=== PATIENT | female | born 1990 ===

== ENCOUNTER 2020-02-15 13:06 | Emergency (ER) | payer OTHER, SELFPAY ==
[2020-02-15 13:38] VITALS: BP 105/60; PULSE 64; RESP 18; TEMP 38; O2SAT 100; BMI 33.5
--- NOTE | 2020-02-15 13:57 | ED_ITS ---
HPI - Medical Clearance General Chief complaint: Upper Respiratory Symptoms Stated complaint: covid testing Time Seen by Provider: 02/15/20 13:32 Source: patient Mode of arrival: ambulatory Limitations: no limitations History of Present Illness HPI Narrative: 21-year-old female is 41 weeks gestation is here for COVID test as her friend's mother whom she is staying with tested positive for COVID she denies any symptoms. No -related complaints. No symptoms. No GI symptoms. No cough, chest pain or shortness of breath MD complaint: medical clearance requested Treatments Prior to Arrival: none Related Information Previous Rx's Medication Instructions Recorded sumatriptan succinate 50 mg tablet 50 mg PO ONCE PRN 30 Days #10 tab 02/10/20 Allergies Allergy/AdvReac Type Severity Reaction Status Date / Time No Known Allergies Allergy Verified 02/10/20 14:24 [No Known Allergies*] control Allergy Unknown migraine Uncoded 11/11/19 00:00 Review of Systems Review of Systems: Constitutional: No Weight loss, No Fever, No Chills, No Night Sweats, No Fatigue, No Malaise ENT/Mouth: No Hearing loss, No Ear Pain, No Nasal Congestion, No Sinus Pain, No Hoarseness, No sore throat, No Rhinorrhea, No Swallowing Difficulty Eyes: No Eye Pain, No Swelling, No Redness, No Foreign Body, No Discharge, No Vision Changes Cardiovascular: No Chest Pain, No SOB, No Dyspnea on Exertion, No Orthopnea, No Edema, No Palpitations Respiratory: No Cough, No Sputum, No Wheezing, No Smoke Exposure, No Dyspnea Gastrointestinal: No Nausea, No Vomiting, No Diarrhea, No Constipation, No abdominal Pain, No Hematochezia, No Melena Genitourinary: no irregular bleeding, No Dysuria, No Urinary Frequency, No Hematuria, No Urinary Incontinence, No Urgency, No Flank Pain, No Urinary Flow Changes, No Hesitancy Musculoskeletal: No joint pain, No Myalgias, No Joint Swelling Skin: No Skin Lesions, No rash Neuro: No Weakness, No Numbness, No Paresthesias, No Loss of Consciousness, No Dizziness, No Headache Psych: No Anxiety/Panic, No Social Issues Heme/Lymph: No Bruising, No Bleeding,No Lymphadenopathy Endocrine: No Polyuria, No Polydipsia, No Temperature Intolerance Yes all other systems are reviewed and are negative PMFSH Past Medical History Medical History (Updated 02/15/20 @ 14:00 by Fredo Zepeda NP) Headache syndrome Social History Social History Alcohol intake: never Smoking Status: Never smoker Advance Directives: No Advance Directives Information Provided: No Physical Exam Vital Signs: Vital Signs: Last Vital Signs Temp 100.4 F 02/15/20 13:38 Pulse 64 02/15/20 13:38 Resp 18 02/15/20 13:38 BP 105/60 02/15/20 13:38 Pulse Ox 100 02/15/20 13:38 Body Mass Index 33.5 Const: General: cooperative and healthy appearing; No acute distress or intoxicated appearing Nutritional Appearance: average body habitus Orientation/consciousness: patient oriented x3 HENMT: Head: Yes normal to inspection Ears: hearing grossly normal bilaterally Eyes: General: appearance normal, both eyes and all related structures Visual Braden: normal visual braden by confrontation Neck: Neck: Yes normal visual inspection, No positive Brudzinski's sign, No positive Kernig's sign and No tender Thyroid: Thyroid normal Chest: Chest palpation & inspection: normal inspection of the chest Resp: Effort & Inspection: normal respiratory effort Auscultation: clear to auscultation bilaterally Cardio: Jugular venous distension: no JVD GI: Inspection: Yes normal to inspection Percussion: Yes normal to percussion Auscultation: normal bowel sounds : General: Yes no CVA tenderness Back/Spine/Pelvis: Back: no CVA tenderness Skin: General skin exam: no rashes or lesions noted Neuro: General: patient oriented x3 Extrem: General: Yes normal to inspection Course Course Course Narrative: Here seeking COVID test for medical clearance as she has 41 she weeks gestation. Being followed by [facility]. Offers no - related complaints. Positive regular movement. No abdominal cramping, GI symptoms. No chest pain or shortness of breath. Will go ahead and do rapid COVID test for medical clearance will discharge with clear precaution return follow-up instructions. Stable for discharge. Discharge Plan Discharge Clinical Impression: Encounter for medical screening examination Patient Disposition: Home, Self-Care Instructions: Normal Exam (ED) Additional Instructions: We have done a rapid COVID test this is pending I will call you with the results in the next 1 hour Return if any concerns or worsening symptoms Follow-up with OBGYN as planned Thank you Prescriptions: No Action sumatriptan succinate 50 mg tablet 50 mg PO ONCE PRN (Reason: migraine headache) 30 Days Qty: 10 RF: 0 Referrals: Oriana Pepper MD [Primary Care Provider] - 1 week
[2020-02-15 14:18] LABS: COVID-19 Test Negative (Negative)
== END 2020-02-15 14:45 | disposition home or self-care (01) ==
PROVIDERS: Nurse Practitioner Primary Care; Emergency Provider Emergency Medicine; PCP Internal Medicine
DX: O26.93 Pregnancy related conditions, unspecified, third trimester (principal); Z3A.41 41 weeks gestation of pregnancy; Z20.828 Contact with and (suspected) exposure to other viral communicable diseases
CPT/HCPCS: 87635; 99283

== ENCOUNTER 2021-05-07 15:53 | Inpatient (IN) | payer OTHER, SELFPAY ==
--- NOTE | ~2021-05-07 | FL_ITS ---
EXAMINATION: XR FL WITH IMAGES CLINICAL INFORMATION: Left kidney stone. COMPARISON: None TECHNIQUE: Fluoroscopy performed by Dr. Rylan Michael. Fluoroscopy Time: 35.47 seconds. DAP: 11.81 mGycm2. Images: 1. FINDINGS: Single image shows the upper portion of a presumed internally dwelling stent. FL/FL guidance in OR IMPRESSION: Fluoroscopy and a single spot film were provided during stent placement.
--- NOTE | ~2021-05-07 | CT_ITS ---
. EXAMINATION: CT ABDOMEN AND PELVIS WITHOUT CONTRAST CLINICAL INFORMATION: Right-sided flank pain COMPARISON: 11/22/2017 TECHNIQUE: Multidetector volumetric imaging was performed from the lung bases through the pubic symphysis. Sagittal and coronal reformatted images were obtained on the technologist workstation. This CT examination was performed using dose optimization techniques as appropriate, variously including the following: *Automated exposure control *Adjustment of mA and/or kV according to patient size (this includes techniques or standardized protocols for targeted exams where dose is matched to indication/reason for exam; i.e. extremities or head) *Use of iterative reconstruction technique FINDINGS: The lack of intravenous contrast limits evaluation of the solid visceral organs including the liver, spleen, pancreas, and kidneys. LUNG BASES: The visualized lung bases are unremarkable. LIVER, GALLBLADDER, AND BILIARY TREE: Liver is diffusely hypoattenuating consistent with diffuse hepatic steatosis. No suspicious or concerning focal liver lesion seen. Status post cholecystectomy. No biliary ductal dilatation. PANCREAS: Limited non-contrast evaluation is normal. No casie-pancreatic fluid. SPLEEN: Limited non-contrast evaluation is normal. ADRENAL GLANDS: Normal; no adrenal mass. KIDNEYS AND URETERS: Several right-sided renal calculi are present up to 4 mm in the upper pole with several adjacent 2-3 mm calculi in the right mid-lower kidney. There is asymmetric left perinephric swelling and perinephric fluid with new left hydroureteronephrosis followed to a 4 mm left ureteral calculus. GASTROINTESTINAL TRACT: Small bowel and colon are non-dilated. No bowel wall thickening. No pericolonic inflammatory changes to suggest colitis or diverticulitis. ABDOMINAL WALL: No hernia seen. LYMPH NODES: No pathologically enlarged lymph nodes in the abdomen or pelvis. VASCULAR: Normal caliber abdominal aorta. BLADDER: Unremarkable. PELVIC VISCERA: Small volume of pelvic free fluid is present. OSSEOUS STRUCTURES: No acute or suspicious osseous abnormalities. CT/CT abdomen pelvis wo con IMPRESSION: No etiology for right flank pain identified. There is an obstructing 4 mm left distal ureteral calculus which could explain left-sided flank pain. This results in left hydroureteronephrosis and asymmetric left renal swelling and perinephric stranding. Severe hepatic steatosis.
[2021-05-07 16:03] VITALS: BP 125/84; PULSE 62; RESP 16; TEMP 36.1; O2SAT 100; BMI 30.8
--- NOTE | 2021-05-07 17:09 | ED.ABDPAIN ---
HPI - Abdominal Pain General Chief Complaint: Back Pain/Injury Stated Complaint: kidney stones Source: patient Mode of arrival: ambulatory Limitations: no limitations History of Present Illness HPI narrative: 30-year-old female with past medical history of kidney stones presents with left-sided flank pain, dysuria, nausea and vomiting. Pain started this morning has progressively worsened. MD elicited complaint: flank pain Pertinent past history: kidney stones Onset (ago): day(s) (1) Pain Consistency: constant and colicky Location: L flank Severity: severe Pain scale (0-10): 10 Quality: stabbing and sharp Migration to: L flank Exacerbating factors: vomiting and movement Relieving factors: nothing Context: history of similar episodes Associated symptoms: nausea, vomiting and chills Treatments prior to arrival: NSAIDs Related Data Date of Last Menstrual Period: 04/27/21 Patient : No Previous Rx's Medication Instructions Recorded sumatriptan succinate 50 mg tablet 50 mg PO DAILY PRN #10 tab 04/28/20 Allergies Allergy/AdvReac Type Severity Reaction Status Date / Time No Known Allergies Allergy Verified 02/10/20 14:24 [No Known Allergies*] control Allergy Unknown migraine Uncoded 11/11/19 00:00 Review of Systems Review of Systems Constitutional: No Fever, No Chills ENT/Mouth: No sore throat Eyes: No Eye Pain, No Swelling, No Redness Cardiovascular: No Chest Pain, No SOB Respiratory: No Cough, No Sputum, No Wheezing Gastrointestinal: positive Nausea, positive Vomiting, No Diarrhea, positive abdominal pain Genitourinary: positive Dysuria, positive urinary frequency, no Hematuria, positive Flank Pain, positive hesitancy Musculoskeletal: No joint pain, No Myalgias Skin: No Skin Lesions, No rash Neuro: No Weakness, No Numbness, No Headache Psych: No Anxiety/Panic, No Depression Heme/Lymph: No Bruising, No Lymphadenopathy Endocrine: No Polyuria, No Polydipsia Yes all other systems are reviewed and are negative Physical Exam Vital Signs: Vital Signs: Last Vital Signs Temp 97.9 F 05/07/21 19:24 Pulse 58 05/07/21 19:24 Resp 16 05/07/21 19:24 BP 115/73 05/07/21 19:24 Pulse Ox 100 05/07/21 19:24 BMI result Body Mass Index 30.8 Appearance: Alert. Oriented X3. Moderate distress. Eyes: Pupils equal, round and reactive to light. Sclera nonicteric. EOMI. ENT: Pharynx normal. Moist mucous membranes. Neck: Normal inspection. Neck supple. CVS: Normal heart rate and rhythm. Pulses normal. Respiratory: No respiratory distress. Breath sounds normal. Abdomen: Soft and left CVA tenderness noted. Skin: Skin warm and dry. Normal skin color. Normal skin turgor. Extremities: No lower extremity edema. Moves all extremities against resistance. Gait well-balanced well coordinated. Neuro: No motor deficit. No sensory deficit. Cranial nerves 2-12 intact. Course Course Course Narrative: 30-year-old female presents with past medical history of kidney stones, presents with 1 day of sharp left-sided flank pain radiating down into the left groin. States that she has had similar pain in the past prior kidney stones. She does describe urinary hesitancy, does not believe to be last menstrual cycle was April 27 with no complications. Will order labs, CT scan of abdomen and pelvis. Will treat with fluids, pain management and antiemetics. 19:02 urinalysis is still pending. Patient is complaining of returning pain at 10/10, 2nd order for morphine 4 mg IV push. Patient has even unlabored respirations, alert oriented x4. 20:37 patient continues with pain. Order for more morphine, fluids, and discussion with patient regarding plan of care to admit for suspected pyelonephritis with nonobstructing kidney stone. 21:00 discussion with hospitalist regarding plan of care, plan is to admit for pyelonephritis and obstructing renal stone. Discussion with Urology regarding obstructing stone. Urology suggested NPO and will round on the patient in the morning. Consultations Consultation #1: Yaima Time: 21:00 Consultation #2: Coy Time: 21:42 MDM - Abdominal Pain Differential Diagnosis Differential diagnosis: Likely abdominal pain, calculus of kidney, constipation, diverticulitis, ovarian cyst, pancreatitis and renal colic Medical Records Attestation: I reviewed the patient's medical records. Lab Data Attestation: I reviewed the patient's lab results. Result diagrams: 05/07/21 17:41 05/07/21 17:55 Labs: Lab Results 05/07/21 05/07/21 05/07/21 Range/Units 17:41 17:55 18:59 WBC 9.8 (4.8-10.8) X10*3/uL RBC 4.61 (4.20-5.50) X10*6/uL Hgb 13.6 (12.0-16.0) g/dl Hct 40.5 (37.0-47.0) % MCV 87.9 (80.0-98.0) fL MCH 29.5 (27.0-33.0) pg MCHC 33.6 (31.0-35.0) g/dl RDW 12.0 (11.0-16.0) % Plt Count 330 (160-400) X10*3/uL MPV 9.8 (9.4-12.3) fL Immature Gran % (Auto) 0.3 (0.0-0.4) % Neut % (Auto) 73.9 H (45-73) % Lymph % (Auto) 19.3 L (20-40) % [place] % (Auto) 5.0 (2-11) % Eos % (Auto) 1.1 (0-4) % Baso % (Auto) 0.4 (0-2) % Lymph # (Auto) 1.9 (1.2-4.9) X10*3/uL [place] # (Auto) 0.5 (0.1-1.2) X10*3/uL Eos # (Auto) 0.1 (0.0-0.4) X10*3/uL Baso # (Auto) 0.0 (0.0-0.2) X10*3/uL Abs Immat Gran (auto) 0.03 (0.00-0.03) X10*3/uL Absolute Neuts (auto) 7.3 (2.0-8.3) x10*3/uL Absolute Nucleated RBC 0.000 (0.0-0.012) X10*3/uL Nucleated RBC % (auto) 0.0 (0.0-0.2) /100WBC Sodium 139 (135-145) mmol/L Potassium 3.4 (3.3-5.1) mmol/L Chloride 106 (96-108) mmol/L Carbon Dioxide 23 (22-29) mmol/L Anion Gap 13 (12-20) BUN 7 L (9-16) mg/dL Creatinine 0.77 (0.5-1.4) mg/dL Estim Creat Clear Calc 107.2 Estimated GFR > 60 Random Glucose 115 (60-115) mg/dL Calcium 9.0 (8.4-10.2) mg/dL Total Bilirubin 0.6 (0.0-1.0) mg/dL Direct Bilirubin 0.3 (0.0-0.5) mg/dL AST 33 H (5-31) U/L ALT 59 H (0-31) U/L Alkaline Phosphatase 73 (39-117) U/L Total Protein 6.7 (6.5-8.0) g/dL Albumin 3.9 (3.5-5.0) g/dL Lipase 20 (8-78) U/L Urine Color DK YELLOW Urine Appearance CLOUDY Urine pH 6.0 (5.0-8.0) Ur Specific [place] >= 1.030 H (1.005-1.025) Urine Protein 1+ H (NEG-TRACE) MG/DL Urine Glucose (UA) NEG (NEG) MG/DL Urine Ketones 15 (NEG) MG/DL Urine Blood 2+ H (NEG) Urine Nitrite NEG (NEG) Ur Leukocyte Esterase NEG (NEG) Urine RBC 10-14 H (0) /HPF Urine WBC 0-2 (0-4) /HPF Ur Squamous Epith Cells 4+ /LPF Calcium Oxalate Crystal 2+ /LPF Amorphous Sediment 2+ /LPF Urine Bacteria NONE /LPF Hyaline Casts 0-2 /LPF Urine Mucus 3+ /LPF Urine Test (NEGATIVE) 05/07/21 Range/Units 18:59 WBC (4.8-10.8) X10*3/uL RBC (4.20-5.50) X10*6/uL Hgb (12.0-16.0) g/dl Hct (37.0-47.0) % MCV (80.0-98.0) fL MCH (27.0-33.0) pg MCHC (31.0-35.0) g/dl RDW (11.0-16.0) % Plt Count (160-400) X10*3/uL MPV (9.4-12.3) fL Immature Gran % (Auto) (0.0-0.4) % Neut % (Auto) (45-73) % Lymph % (Auto) (20-40) % [place] % (Auto) (2-11) % Eos % (Auto) (0-4) % Baso % (Auto) (0-2) % Lymph # (Auto) (1.2-4.9) X10*3/uL [place] # (Auto) (0.1-1.2) X10*3/uL Eos # (Auto) (0.0-0.4) X10*3/uL Baso # (Auto) (0.0-0.2) X10*3/uL Abs Immat Gran (auto) (0.00-0.03) X10*3/uL Absolute Neuts (auto) (2.0-8.3) x10*3/uL Absolute Nucleated RBC (0.0-0.012) X10*3/uL Nucleated RBC % (auto) (0.0-0.2) /100WBC Sodium (135-145) mmol/L Potassium (3.3-5.1) mmol/L Chloride (96-108) mmol/L Carbon Dioxide (22-29) mmol/L Anion Gap (12-20) BUN (9-16) mg/dL Creatinine (0.5-1.4) mg/dL Estim Creat Clear Calc Estimated GFR Random Glucose (60-115) mg/dL Calcium (8.4-10.2) mg/dL Total Bilirubin (0.0-1.0) mg/dL Direct Bilirubin (0.0-0.5) mg/dL AST (5-31) U/L ALT (0-31) U/L Alkaline Phosphatase (39-117) U/L Total Protein (6.5-8.0) g/dL Albumin (3.5-5.0) g/dL Lipase (8-78) U/L Urine Color Urine Appearance Urine pH (5.0-8.0) Ur Specific [place] (1.005-1.025) Urine Protein (NEG-TRACE) MG/DL Urine Glucose (UA) (NEG) MG/DL Urine Ketones (NEG) MG/DL Urine Blood (NEG) Urine Nitrite (NEG) Ur Leukocyte Esterase (NEG) Urine RBC (0) /HPF Urine WBC (0-4) /HPF Ur Squamous Epith Cells /LPF Calcium Oxalate Crystal /LPF Amorphous Sediment /LPF Urine Bacteria /LPF Hyaline Casts /LPF Urine Mucus /LPF Urine Test NEGATIVE (NEGATIVE) Imaging Data CT abdomen pelvis: Attestation: I personally reviewed and interpreted this imaging study as follows: Radiologist's impression: FINDINGS: The lack of intravenous contrast limits evaluation of the solid visceral organs including the liver, spleen, pancreas, and kidneys. LUNG BASES: The visualized lung bases are unremarkable.? LIVER, GALLBLADDER, AND BILIARY TREE: Liver is diffusely hypoattenuating consistent with diffuse hepatic steatosis. No suspicious or concerning focal liver lesion seen. Status post cholecystectomy. No biliary ductal dilatation.? PANCREAS: Limited non-contrast evaluation is normal.? No casie-pancreatic fluid.? SPLEEN: Limited non-contrast evaluation is normal. ? ADRENAL GLANDS: Normal; no adrenal mass.? KIDNEYS AND URETERS: Several right-sided renal calculi are present up to 4 mm in the upper pole with several adjacent 2-3 mm calculi in the right mid-lower kidney. There is asymmetric left perinephric swelling and perinephric fluid with new left hydroureteronephrosis followed to a 4 mm left ureteral calculus. GASTROINTESTINAL TRACT: Small bowel and colon are non-dilated.? No bowel wall thickening.? No pericolonic inflammatory changes to suggest colitis or diverticulitis.? ABDOMINAL WALL: No hernia seen.? LYMPH NODES: No pathologically enlarged lymph nodes in the abdomen or pelvis. VASCULAR: Normal caliber abdominal aorta. BLADDER: Unremarkable.? PELVIC VISCERA: Small volume of pelvic free fluid is present.? OSSEOUS STRUCTURES: No acute or suspicious osseous abnormalities.? CT/CT abdomen pelvis wo con IMPRESSION: No etiology for right flank pain identified. ? There is an obstructing 4 mm left distal ureteral calculus which could explain left-sided flank pain. This results in left hydroureteronephrosis and asymmetric left renal swelling and perinephric stranding. ? Severe hepatic steatosis. ECG Data Attestation: I personally reviewed and interpreted this ECG as follows: ECG interpretation date: 05/07/21 ECG interpretation time: 17:58 Prior ECG tracings: not available for review Interpretation: Vent. rate 57 BPM AK interval 140 ms QRS duration 86 ms QT/QTc 466/453 ms P-R-T axes 32 43 35 Sinus bradycardia with sinus arrhythmia T wave abnormality, consider anterior ischemia Abnormal ECG No previous ECGs available Critical Care Time Critical Care Time Critical Care Time: Yes Total Critical Care Time: 45 Attestation: I have personally provided critical care time exclusive of time spent on separately billable procedures. Time includes review of laboratory data, radiology results, discussion with consultants, and monitoring for potential decompensation. Interventions were performed as documented. Discharge Plan Discharge Clinical Impression: Renal colic, Pyelonephritis Patient Disposition: Admitted As Inpatient [facility] Past Medical History Attestation statement: The following information was validated with the patient. Source: old records reviewed Medical History Headache syndrome Date of Last Menstrual Period: 04/27/21 Family History Family History Father No problems noted. Mother Breast cancer Maternal Grandmother No problems noted. Maternal Grandfather No problems noted. Paternal Grandfather No problems noted. Paternal Grandmother No problems noted. Maternal Aunt No problems noted. Brother No problems noted. Brother No problems noted. Brother No problems noted. Sister No problems noted. Sister No problems noted. Son No problems noted. Daughter No problems noted. Social History Social History Alcohol intake: never Patient Tobacco Use Status: Never used Tobacco Use of substances other than those prescribed or required for medical reasons: No Advance Directives: No Advance Directives Information Provided: No Patient : No
--- NOTE | 2021-05-07 17:10 | ECG_ITS ---
Test Reason : ABD PAIN Blood Pressure : / mmHG Vent. Rate : 057 BPM Atrial Rate : 057 BPM P-R Int : 140 ms QRS Dur : 086 ms QT Int : 466 ms P-R-T Axes : 032 043 035 degrees QTc Int : 453 ms Sinus bradycardia with sinus arrhythmia T wave abnormality, consider anterior ischemia Abnormal ECG No previous ECGs available Referred By: Anitha Solis Electronically Signed By:John Monaco
[2021-05-07 17:21] VITALS: BP 127/72; RESP 19; TEMP 36.6
[2021-05-07] MEDS: ondansetron HCL 4 MG/2 ML VIAL IVPUSH (17:46)
[2021-05-07] MEDS: Morphine Sulfate 4 MG/ML CARTRIDGE IVPUSH ×3 (17:46→20:54)
[2021-05-07] MEDS: 0.9 % Sodium Chloride 1,000 ML 999 ML IVCONT ×2 (17:46→20:53)
[2021-05-07 17:47] LABS: Basophils Percent Auto 0.4 % (0-2); Eosinophils Absolute Auto 0.1 X10*3/uL (0.0-0.4); Eosinophils Percent Auto 1.1 % (0-4); Hematocrit 40.5 % (37.0-47.0); Hemoglobin 13.6 g/dl (12.0-16.0); Imm Gran Abs Auto 0.03 X10*3/uL (0.00-0.03); Imm Gran Pct Auto 0.3 % (0.0-0.4); Lymphocytes Absolute Auto 1.9 X10*3/uL (1.2-4.9); Lymphocytes Percent Auto 19.3 % (20-40); MANUAL DIFF FLAG NO; Mean Corpuscular HGB Conc 33.6 g/dl (31.0-35.0); Mean Corpuscular Hemoglobin 29.5 pg (27.0-33.0); Mean Corpuscular Volume 87.9 fL (80.0-98.0); Mean Platelet Volume 9.8 fL (9.4-12.3); Monocytes Absolute Auto 0.5 X10*3/uL (0.1-1.2); Neutrophils Absolute Auto 7.3 x10*3/uL (2.0-8.3); Neutrophils Percent Auto 73.9 % (45-73); Platelet Count 330 X10*3/uL (160-400); Red Blood Count 4.61 X10*6/uL (4.20-5.50); White Blood Count 9.8 X10*3/uL (4.8-10.8)
[2021-05-07] MEDS: Ketorolac Tromethamine 30 MG/ML VIAL IVPUSH (17:47)
[2021-05-07 17:49] VITALS: O2SAT 100
[2021-05-07 18:18] LABS: Alanine Aminotransferase 59 U/L (0-31); Albumin Level 3.9 g/dL (3.5-5.0); Alkaline Phosphatase 73 U/L (39-117); Anion Gap 13 (12-20); Aspartate Amino Transferase 33 U/L (5-31); Bilirubin Direct 0.3 mg/dL (0.0-0.5); Bilirubin Total 0.6 mg/dL (0.0-1.0); Blood Urea Nitrogen 7 mg/dL (9-16); Carbon Dioxide 23 mmol/L (22-29); Chloride 106 mmol/L (96-108); Creatinine Clr Calc Pharmacy 107.2; Estimated Glomerular Filt Rate > 60; Glucose Random 115 mg/dL (60-115); Lipase 20 U/L (8-78); Potassium 3.4 mmol/L (3.3-5.1); Sodium 139 mmol/L (135-145); Total Protein 6.7 g/dL (6.5-8.0)
[2021-05-07 18:32] VITALS: BP 115/79; PULSE 67; RESP 16; TEMP 36.6; O2SAT 100
[2021-05-07 19:06] VITALS: RESP 16
[2021-05-07 19:08] LABS: Appearance Urine CLOUDY; Color Urine DK YELLOW; Glucose Urine UA NEG (NEG); Leukocyte Esterase Urine NEG (NEG); Nitrite Urine NEG (NEG); Specific Gravity - Urine >= 1.030 (1.005-1.025); UACC Culture Trigger NO; Urine Blood 2+ (NEG); Urine Ketones 15 MG/DL (NEG); Urine Protein 1+ MG/DL (NEG-TRACE)
[2021-05-07 19:10] LABS: UPreg QC Valid YES; Urine Pregnancy NEGATIVE (NEGATIVE)
[2021-05-07 19:20] LABS: Amorphous Sediment Urine 2+ /LPF; Calcium Oxalate Crystals Urine 2+ /LPF; Hyaline Casts Urine 0-2 /LPF; Mucus Urine 3+ /LPF; Squamous Epithelial Cell Urine 4+ /LPF; WBC Urine 0-2 /HPF (0-4)
[2021-05-07 19:24] VITALS: BP 115/73; PULSE 58; RESP 16; TEMP 36.6; O2SAT 100
[2021-05-07] MEDS: Tamsulosin HCL 0.4 MG CAPSULE PO (20:56)
[2021-05-07] MEDS: cefTRIAXone sodium 1 GM in 0.9 % Sodium Chloride 50 ML IV (20:56)
--- NOTE | 2021-05-07 21:25 | PHA.MEDREC ---
Pharmacy Consult ? Medication Reconciliation Pharmacy has completed the medication reconciliation. No remarkable issues. Samia Ray, CastroD
--- NOTE | 2021-05-07 21:32 | P.HPHOSP_ITS ---
History of Present Illness Date of Service: 05/07/21 Chief Complaint: Flank pain This is a 30-year-old female with past medical history of headaches, as well as kidney stones who presents to the hospital with complaints of left flank pain. Patient reports that her symptoms started the day of presentation, 01/02, associated with chills no fever, radiating down to her hip and groin, worse with movement, better with pain control in the ED, she has also noticed decreased urine output, no dysuria or urgency. She reports history of kidney stone and treatment with lithotripsy in the past. She denies any abdominal pain no diarrhea constipation, no chest pain, no shortness of breath, no palpitations, no headache or change in vision, and no lower extremity edema. On arrival to the ED patient hemodynamically stable with no significant abnormal vitals Labs are significant for 9.8, otherwise unremarkable. UA is positive 9.8, otherwise unremarkable. UA is negative for any acute infection, abdominal/pelvic CT shows an an obstructing 4 mm left distal ureteral calculus which could explain left-sided flank pain. Left hydroureteronephrosis and says asymmetric left renal swelling and perinephric stranding Neurology consult, admit to Medicine, Patient given IV antibiotics and will be admitted for further management Review of Systems Review of Systems: Yes all other systems are reviewed and are negative [facility] Medical History (Updated 05/08/21 @ 06:49 by Samantha Erwin MD) Depression Headache syndrome History of kidney stones Family History Father No problems noted. Mother Breast cancer Maternal Grandmother No problems noted. Maternal Grandfather No problems noted. Paternal Grandfather No problems noted. Paternal Grandmother No problems noted. Maternal Aunt No problems noted. Brother No problems noted. Brother No problems noted. Brother No problems noted. Sister No problems noted. Sister No problems noted. Son No problems noted. Daughter No problems noted. Surgical History (Updated 05/08/21 @ 06:49 by Samantha Erwin MD) History of lithotripsy Social History Alcohol intake: never Patient Tobacco Use Status: Never used Tobacco Use of substances other than those prescribed or required for medical reasons: No Advance Directives: No Advance Directives Information Provided: No Patient : No Meds Allergies Allergy/AdvReac Type Severity Reaction Status Date / Time No Known Allergies Allergy Verified 02/10/20 14:24 [No Known Allergies*] control Allergy Unknown migraine Uncoded 11/11/19 00:00 Active Medications: Current Medications Sodium Chloride (Ns) 1,000 mls @ 999 mls/hr IVCONT .Q1H1M RADU Stop: 05/07/21 21:45 Last Admin: 05/07/21 20:53 Dose: 999 mls/hr Documented by: Physical Exam Vital Signs and Narrative: Vital Signs: Last Vital Signs Temp 97.9 F 05/07/21 19:24 Pulse 58 05/07/21 19:24 Resp 16 05/07/21 19:24 BP 115/73 05/07/21 19:24 Pulse Ox 100 05/07/21 19:24 BMI result Body Mass Index 30.8 Const: General: cooperative and no acute distress Zaheer entation/consciousness: patient oriented x3 Eyes: General: appearance normal, both eyes and all related structures Pupi ls: Equal, round and reactive pupils present Resp: Effort & Inspection: normal respiratory effort Auscultation: clear to auscultation bilaterally Cardio: Rate: regular rate Rhythm: regular rhythm GI: Palpation (GI): Soft to palpation Auscultation: normal bowel sounds : Other: Left CVA tenderness Skin: General skin exam: no rashes or lesions noted Neuro: General: patient oriented x3 Cranial nerves: Yes Equal, round and reactive pupils present Cognition (Neuro): normal cognition Extrem: General: Yes normal to inspection and Yes no pedal edema Results Labs CBC and Chem 7: 05/07/21 17:41 05/07/21 17:55 Labs: Laboratory Results - last 24 hr 05/07/21 05/07/21 05/07/21 17:41 17:55 18:59 MCV 87.9 MCH 29.5 MCHC 33.6 RDW 12.0 Plt Count 330 MPV 9.8 Immature Gran % (Auto) 0.3 Neut % (Auto) 73.9 H Lymph % (Auto) 19.3 L [place] % (Auto) 5.0 Eos % (Auto) 1.1 Baso % (Auto) 0.4 Lymph # (Auto) 1.9 [place] # (Auto) 0.5 Eos # (Auto) 0.1 Baso # (Auto) 0.0 Abs Immat Gran (auto) 0.03 Absolute Neuts (auto) 7.3 Absolute Nucleated RBC 0.000 Nucleated RBC % (auto) 0.0 Anion Gap 13 Estim Creat Clear Calc 107.2 Estimated GFR > 60 Random Glucose 115 Calcium 9.0 Total Bilirubin 0.6 Direct Bilirubin 0.3 AST 33 H ALT 59 H Alkaline Phosphatase 73 Total Protein 6.7 Albumin 3.9 Lipase 20 Urine Color DK YELLOW Urine Appearance CLOUDY Urine pH 6.0 Ur Specific [place] >= 1.030 H Urine Protein 1+ H Urine Glucose (UA) NEG Urine Ketones 15 Urine Blood 2+ H Urine Nitrite NEG Ur Leukocyte Esterase NEG Urine RBC 10-14 H Urine WBC 0-2 Ur Squamous Epith Cells 4+ Calcium Oxalate Crystal 2+ Amorphous Sediment 2+ Urine Bacteria NONE Hyaline Casts 0-2 Urine Mucus 3+ Urine Test 05/07/21 18:59 MCV MCH MCHC RDW Plt Count MPV Immature Gran % (Auto) Neut % (Auto) Lymph % (Auto) [place] % (Auto) Eos % (Auto) Baso % (Auto) Lymph # (Auto) [place] # (Auto) Eos # (Auto) Baso # (Auto) Abs Immat Gran (auto) Absolute Neuts (auto) Absolute Nucleated RBC Nucleated RBC % (auto) Anion Gap Estim Creat Clear Calc Estimated GFR Random Glucose Calcium Total Bilirubin Direct Bilirubin AST ALT Alkaline Phosphatase Total Protein Albumin Lipase Urine Color Urine Appearance Urine pH Ur Specific [place] Urine Protein Urine Glucose (UA) Urine Ketones Urine Blood Urine Nitrite Ur Leukocyte Esterase Urine RBC Urine WBC Ur Squamous Epith Cells Calcium Oxalate Crystal Amorphous Sediment Urine Bacteria Hyaline Casts Urine Mucus Urine Test NEGATIVE Imaging Radiologist's Impressions: Impressions Abdomen/Pelvis CT 05/07/21 19:24 IMPRESSION: No etiology for right flank pain identified. There is an obstructing 4 mm left distal ureteral calculus which could explain left-sided flank pain. This results in left hydroureteronephrosis and asymmetric left renal swelling and perinephric stranding. Severe hepatic steatosis. Assessment and Plan (1) Renal colic: Status: Acute (2) Pyelonephritis: Status: Acute Plan 30-year-old female with past medical history of kidney stones presents to the hospital with flank pain found to have an obstructing renal calculi # obstructing renal calculi - 4 mm obstructing left ureteral calculus with evidence of hydroureteronephrosis on CT - urology consulted, will keep NPO, plan for surgical intervention in a.m. - pain control - IV fluids # pyelonephritis - evidence of perinephric stranding - CVA tenderness - UA negative - will treat with IV antibiotics - follow cultures - definitive treatment with surgical intervention and removal of kidney stone # headaches - stable at this time, with no headache - continue home sumatriptan DVT prophylaxis: SCDs in anticipation of surgical intervention Quality Stroke Does the patient have a stroke diagnosis?: No VTE Prior VTE?: No VTE Risk Level:: Medical - moderate - high VTE Device Contraindication: Treatment Not Indicated VTE Drug Contraindication: N/A - Med Ordered
[2021-05-07] MEDS: Lactated Ringers 1,000 ML 100 ML IVCONT (21:54)
[2021-05-08] VITALS (9 sets, daily range): BP systolic 95–132; BP diastolic 46–88; PULSE 46–76; RESP 12–20; TEMP 36.2–37.2; O2SAT 98–100; BMI 34.9
[2021-05-08] MEDS: ondansetron HCL 4 MG/2 ML VIAL IVPUSH ×2 (01:40→18:56)
[2021-05-08] MEDS: Morphine Sulfate 4 MG/ML CARTRIDGE IVPUSH ×4 (01:42→18:16)
[2021-05-08 07:11] LABS: MANUAL DIFF FLAG NO
[2021-05-08 07:19] LABS: Basophils Percent Auto 0.3 % (0-2); Eosinophils Absolute Auto 0.1 X10*3/uL (0.0-0.4); Eosinophils Percent Auto 0.9 % (0-4); Hematocrit 35.1 % (37.0-47.0); Hemoglobin 11.3 g/dl (12.0-16.0); Imm Gran Abs Auto 0.01 X10*3/uL (0.00-0.03); Imm Gran Pct Auto 0.1 % (0.0-0.4); Lymphocytes Percent Auto 26.6 % (20-40); Mean Corpuscular HGB Conc 32.2 g/dl (31.0-35.0); Mean Corpuscular Hemoglobin 28.8 pg (27.0-33.0); Mean Corpuscular Volume 89.5 fL (80.0-98.0); Mean Platelet Volume 10.3 fL (9.4-12.3); Monocytes Absolute Auto 0.5 X10*3/uL (0.1-1.2); Monocytes Percent Auto 6.5 % (2-11); Neutrophils Percent Auto 65.6 % (45-73); Platelet Count 276 X10*3/uL (160-400); Red Blood Count 3.92 X10*6/uL (4.20-5.50); Red Cell Distribution Width 12.1 % (11.0-16.0); White Blood Count 7.6 X10*3/uL (4.8-10.8)
[2021-05-08 07:36] LABS: Anion Gap 10 (12-20); Blood Urea Nitrogen 5 mg/dL (9-16); Calcium 8.6 mg/dL (8.4-10.2); Carbon Dioxide 26 mmol/L (22-29); Chloride 109 mmol/L (96-108); Creatinine Clr Calc Pharmacy 117.9; Estimated Glomerular Filt Rate > 60; Glucose Random 95 mg/dL (60-115); Sodium 141 mmol/L (135-145)
[2021-05-08] MEDS: Lactated Ringers 1,000 ML 100 ML IVCONT ×2 (08:33→18:03)
--- NOTE | 2021-05-08 08:49 | HO.PM.IMPN ---
Subjective Subjective Date of Service: 05/08/21 Interval History: the patient was seen and evaluated this morning Laying in bed, complaining of pain in her left flank Denies any nausea or vomiting No reported other overnight events. Systemic review: No fever, chills or weakness No chest pain, palpitation No shortness of breath or coughing No abdominal pain, nausea or vomiting Left loin pain No any rash or wounds Physical Exam Vital Signs: Vital Signs: Last Vital Signs Temp 98.0 F 05/08/21 06:03 Pulse 50 05/08/21 07:49 Resp 12 05/08/21 07:49 BP 95/46 L 05/08/21 07:49 Pulse Ox 99 05/08/21 07:49 BMI result Body Mass Index 30.8 Const: Other: Constitutional : Alert, oriented, not in distress Neck : Normal inspection, Supple Cardiovascular : RRR, S1 S2, no lower extremity edema Respiratory : Good bilateral air entry, no crackles, wheezes or rhonchi Gastrointestinal: soft, lax, Normal bowel sounds, Non tender Skin : Warm, Dry Neurology, left CVA tenderness Neurological : Alert & oriented x3, No focal deficit Objective Data Active Medications Acetaminophen (Acetaminophen 325 Mg Tablet) 650 mg PO Q6H PRN PRN Reason: Pain, Mild (Pain Scale 1-3) Docusate Sodium (Docusate Sodium 100 Mg Capsule) 100 mg PO DAILY PRN PRN Reason: Constipation Ceftriaxone Sodium 1 gm/ (Sodium Chloride) 50 mls @ 100 mls/hr IV Q24H [facility] Lactated Ringer's (Lr) 1,000 mls @ 100 mls/hr IVCONT .Q10H [facility] Last Admin: 05/08/21 08:33 Dose: 100 mls/hr Documented by: PERNELL Morphine Sulfate (Morphine Sulfate 4 Mg/Ml Cartridge) 4 mg IVPUSH Q4H PRN; Protocol PRN Reason: Pain, Severe (Pain Scale 7-10) Last Admin: 05/08/21 08:28 Dose: 4 mg Documented by: PERNELL Ondansetron HCl (Ondansetron Hcl 4 Mg/2 Ml Vial) 4 mg IVPUSH Q8H PRN PRN Reason: Nausea and Vomiting Last Admin: 05/08/21 01:40 Dose: 4 mg Documented by: KIT Sodium Chloride (0.9 % Sodium Chloride Flush 3 Ml Syringe) 3 ml IVFLUSH QSHIFT [facility] Last Admin: 05/08/21 00:30 Dose: Not Given Documented by: KIT Non-Admin Reason: Med Not Available Sumatriptan Succinate (Sumatriptan Succinate 50 Mg Tablet) 50 mg PO DAILY PRN PRN Reason: for migraine Labs CBC & Chem 7: 05/08/21 06:45 05/08/21 06:45 Labs: Laboratory Results - last 24 hr 05/07/21 05/07/21 05/07/21 17:41 17:55 18:59 MCV 87.9 MCH 29.5 MCHC 33.6 RDW 12.0 Plt Count 330 MPV 9.8 Immature Gran % (Auto) 0.3 Neut % (Auto) 73.9 H Lymph % (Auto) 19.3 L Valley % (Auto) 5.0 Eos % (Auto) 1.1 Baso % (Auto) 0.4 Lymph # (Auto) 1.9 Valley # (Auto) 0.5 Eos # (Auto) 0.1 Baso # (Auto) 0.0 Abs Immat Gran (auto) 0.03 Absolute Neuts (auto) 7.3 Absolute Nucleated RBC 0.000 Nucleated RBC % (auto) 0.0 Anion Gap 13 Estim Creat Clear Calc 107.2 Estimated GFR > 60 Random Glucose 115 Lactic Acid Calcium 9.0 Total Bilirubin 0.6 Direct Bilirubin 0.3 AST 33 H ALT 59 H Alkaline Phosphatase 73 Total Protein 6.7 Albumin 3.9 Lipase 20 Urine Color DK YELLOW Urine Appearance CLOUDY Urine pH 6.0 Ur Specific Evans >= 1.030 H Urine Protein 1+ H Urine Glucose (UA) NEG Urine Ketones 15 Urine Blood 2+ H Urine Nitrite NEG Ur Leukocyte Esterase NEG Urine RBC 10-14 H Urine WBC 0-2 Ur Squamous Epith Cells 4+ Calcium Oxalate Crystal 2+ Amorphous Sediment 2+ Urine Bacteria NONE Hyaline Casts 0-2 Urine Mucus 3+ Urine Test 05/07/21 05/07/21 05/08/21 18:59 21:53 06:45 MCV 89.5 MCH 28.8 MCHC 32.2 RDW 12.1 Plt Count 276 MPV 10.3 Immature Gran % (Auto) 0.1 Neut % (Auto) 65.6 Lymph % (Auto) 26.6 Valley % (Auto) 6.5 Eos % (Auto) 0.9 Baso % (Auto) 0.3 Lymph # (Auto) 2.0 Valley # (Auto) 0.5 Eos # (Auto) 0.1 Baso # (Auto) 0.0 Abs Immat Gran (auto) 0.01 Absolute Neuts (auto) 5.0 Absolute Nucleated RBC 0.000 Nucleated RBC % (auto) 0.0 Anion Gap Estim Creat Clear Calc Estimated GFR Random Glucose Lactic Acid 1.0 Calcium Total Bilirubin Direct Bilirubin AST ALT Alkaline Phosphatase Total Protein Albumin Lipase Urine Color Urine Appearance Urine pH Ur Specific Evans Urine Protein Urine Glucose (UA) Urine Ketones Urine Blood Urine Nitrite Ur Leukocyte Esterase Urine RBC Urine WBC Ur Squamous Epith Cells Calcium Oxalate Crystal Amorphous Sediment Urine Bacteria Hyaline Casts Urine Mucus Urine Test NEGATIVE 05/08/21 06:45 MCV MCH MCHC RDW Plt Count MPV Immature Gran % (Auto) Neut % (Auto) Lymph % (Auto) Valley % (Auto) Eos % (Auto) Baso % (Auto) Lymph # (Auto) Valley # (Auto) Eos # (Auto) Baso # (Auto) Abs Immat Gran (auto) Absolute Neuts (auto) Absolute Nucleated RBC Nucleated RBC % (auto) Anion Gap 10 L Estim Creat Clear Calc 117.9 Estimated GFR > 60 Random Glucose 95 Lactic Acid Calcium 8.6 Total Bilirubin Direct Bilirubin AST ALT Alkaline Phosphatase Total Protein Albumin Lipase Urine Color Urine Appearance Urine pH Ur Specific Evans Urine Protein Urine Glucose (UA) Urine Ketones Urine Blood Urine Nitrite Ur Leukocyte Esterase Urine RBC Urine WBC Ur Squamous Epith Cells Calcium Oxalate Crystal Amorphous Sediment Urine Bacteria Hyaline Casts Urine Mucus Urine Test Assessment and Plan (1) Pyelonephritis: Status: Acute (2) Ureteral stone with hydronephrosis: Status: Acute Plan 30-year-old female with past medical history of kidney stones presents to the hospital with flank pain found to have an obstructing renal calculi # obstructing renal calculi 4 mm obstructing left ureteral calculus with evidence of hydroureteronephrosis on CT urology consulted, will keep NPO, Urology were round and decide Keep NPO for now pain control IV fluids # pyelonephritis evidence of perinephric stranding CVA tenderness Continue with IV antibiotics follow cultures # headaches stable at this time, with no headache continue home sumatriptan DVT prophylaxis: SCDs in anticipation of surgical intervention Quality Stroke Does the patient have a stroke diagnosis?: No VTE Prior VTE?: No VTE Risk Level:: Medical - moderate - high VTE Device Contraindication: Treatment Not Indicated VTE Drug Contraindication: N/A - Med Ordered
[2021-05-08] MEDS: 0.9 % Sodium Chloride Flush 3 ML SYRINGE IVFLUSH ×2 (09:17→20:45)
--- NOTE | 2021-05-08 09:56 | MHC.CM.PN ---
DONTAE STACK, PT ADMITTED W/PYELONEPHRITIS AND OBSTRUCTING RENAL CALCULI, CM MET W/PT WHO IS A&OX4, PT REPORTS SHE LIVES W/HER SON, IS INDEPENDENT W/ALL CARE, NO DME AND NO SERVICES PT IS WORKING A [employer] FOR [employer]. PT VERIFIES PCP CARMEN MAC, PT PROVIDED W/EDUCATION ON HCP'S HOWEVER IS CURRENTLY DECLINING. D/C PLAN: HOME NO SERVICES, PT TO ARRANGE TRANSPORT. MODERNA X2, NO BOOSTER.
--- NOTE | 2021-05-08 11:05 | PC.NURSE ---
per telephone order from Dr. Cespedes pt to be NPO after midnight. ed diet currently in place. crackers and trice keyla offered. will continue to monitor
[2021-05-08 15:50] LABS: COVID-19 Test Negative (Negative); IDNOW Serial# 9DD0AD1C
[2021-05-08] MEDS: Docusate Sodium 100 MG CAPSULE PO (18:16)
[2021-05-08] MEDS: Prochlorperazine Edisylate 10 MG/2 ML VIAL 5 MG IVPUSH (20:34)
[2021-05-08] MEDS: SUMAtriptan succinate 50 MG TABLET PO (20:44)
[2021-05-08] MEDS: cefTRIAXone sodium 1 GM in 0.9 % Sodium Chloride 50 ML IV (20:44)
[2021-05-09] VITALS (10 sets, daily range): BP systolic 115–157; BP diastolic 54–99; PULSE 48–101; RESP 15–20; TEMP 36.1–37.2; O2SAT 94–100; BMI 35.0
[2021-05-09 04:19] LABS: HBS Num1 0.25 mIU/mL (0-7.99); HBc Num1 0.07 S/CO (0.00-0.79); Hepatitis B Core Antibody Nonreactive (Nonreactive); ~Hepatitis B Surface Antibody NONREACTIVE (Nonreactive)
[2021-05-09 04:41] LABS: Hepatitis B Surface Antigen Negative (Negative)
[2021-05-09 05:12] LABS: HBsAGNum1 0.26 S/CO (0.00-0.99); ~HepC Num1 0.08 S/CO (0.00-0.79); ~Hepatitis C Antibody Nonreactive (Nonreactive)
[2021-05-09] MEDS: Lactated Ringers 1,000 ML 100 ML IVCONT ×2 (05:25→14:12)
[2021-05-09] MEDS: Morphine Sulfate 4 MG/ML CARTRIDGE IVPUSH ×3 (05:28→22:55)
[2021-05-09 07:22] LABS: Hematocrit 34.7 % (37.0-47.0); Hemoglobin 11.6 g/dl (12.0-16.0); Mean Corpuscular HGB Conc 33.4 g/dl (31.0-35.0); Mean Corpuscular Hemoglobin 29.9 pg (27.0-33.0); Mean Corpuscular Volume 89.4 fL (80.0-98.0); Mean Platelet Volume 10.6 fL (9.4-12.3); Platelet Count 243 X10*3/uL (160-400); Red Blood Count 3.88 X10*6/uL (4.20-5.50); Red Cell Distribution Width 11.9 % (11.0-16.0); White Blood Count 5.7 X10*3/uL (4.8-10.8)
[2021-05-09 07:40] LABS: Anion Gap 9 (12-20); Blood Urea Nitrogen 5 mg/dL (9-16); Calcium 8.4 mg/dL (8.4-10.2); Carbon Dioxide 27 mmol/L (22-29); Chloride 109 mmol/L (96-108); Estimated Glomerular Filt Rate > 60; Glucose Random 84 mg/dL (60-115); Potassium 3.7 mmol/L (3.3-5.1); Sodium 141 mmol/L (135-145)
[2021-05-09] MEDS: 0.9 % Sodium Chloride Flush 3 ML SYRINGE IVFLUSH ×2 (09:08→14:19)
--- NOTE | 2021-05-09 10:02 | HO.PM.IMPN ---
Subjective Subjective Date of Service: 05/09/21 Interval History: the patient was seen and evaluated this morning Laying in bed, complaining of pain in her left flank Denies any nausea or vomiting No reported other overnight events. Systemic review: No fever, chills or weakness No chest pain, palpitation No shortness of breath or coughing No abdominal pain, nausea or vomiting Left loin pain No any rash or wounds Physical Exam Vital Signs: Vital Signs: Last Vital Signs Temp 98.9 F 05/09/21 07:45 Pulse 54 05/09/21 07:45 Resp 18 05/09/21 07:45 BP 115/78 05/09/21 07:45 Pulse Ox 96 05/09/21 07:45 BMI result Body Mass Index 35.0 Const: Other: Constitutional : Alert, oriented, not in distress Neck : Normal inspection, Supple Cardiovascular : RRR, S1 S2, no lower extremity edema Respiratory : Good bilateral air entry, no crackles, wheezes or rhonchi Gastrointestinal: soft, lax, Normal bowel sounds, Non tender Skin : Warm, Dry Neurology, left CVA tenderness Neurological : Alert & oriented x3, No focal deficit Objective Data Active Medications Acetaminophen (Acetaminophen 325 Mg Tablet) 650 mg PO Q6H PRN PRN Reason: Pain, Mild (Pain Scale 1-3) Docusate Sodium (Docusate Sodium 100 Mg Capsule) 100 mg PO DAILY PRN PRN Reason: Constipation Last Admin: 05/08/21 18:16 Dose: 100 mg Documented by: PERRY Ceftriaxone Sodium 1 gm/ (Sodium Chloride) 50 mls @ 100 mls/hr IV Q24H [facility] Last Infusion: 05/08/21 21:55 Dose: 0 mls/hr Documented by: VALERIE Lactated Ringer's (Lr) 1,000 mls @ 100 mls/hr IVCONT .Q10H [facility] Last Admin: 05/09/21 05:25 Dose: 100 mls/hr Documented by: VALERIE Morphine Sulfate (Morphine Sulfate 4 Mg/Ml Cartridge) 4 mg IVPUSH Q4H PRN; Protocol PRN Reason: Pain, Severe (Pain Scale 7-10) Last Admin: 05/09/21 05:28 Dose: 4 mg Documented by: VALERIE Ondansetron HCl (Ondansetron Hcl 4 Mg/2 Ml Vial) 4 mg IVPUSH Q8H PRN PRN Reason: Nausea and Vomiting Last Admin: 05/08/21 18:56 Dose: 4 mg Documented by: NOAH Sodium Chloride (0.9 % Sodium Chloride Flush 3 Ml Syringe) 3 ml IVFLUSH QSHIFT [facility] Last Admin: 05/09/21 09:08 Dose: 3 ml Documented by: BG Sumatriptan Succinate (Sumatriptan Succinate 50 Mg Tablet) 50 mg PO DAILY PRN PRN Reason: for migraine Last Admin: 05/08/21 20:44 Dose: 50 mg Documented by: VALERIE Labs CBC & Chem 7: 05/09/21 06:40 05/09/21 06:40 Labs: Laboratory Results - last 24 hr 05/07/21 05/08/21 05/09/21 21:53 15:22 06:40 MCV 89.4 MCH 29.9 MCHC 33.4 RDW 11.9 Plt Count 243 MPV 10.6 Absolute Nucleated RBC 0.000 Nucleated RBC % (auto) 0.0 Anion Gap Estim Creat Clear Calc Estimated GFR Random Glucose Calcium COVID-19 (DARREN) Negative COVID-19 Clin Com See Note Hep Bs Antigen Negative Hep Bs Antibody NONREACTIVE Hep B Core Total Ab Nonreactive Hepatitis C Ab (EIA) Nonreactive 05/09/21 06:40 MCV MCH MCHC RDW Plt Count MPV Absolute Nucleated RBC Nucleated RBC % (auto) Anion Gap 9 L Estim Creat Clear Calc 126.0 Estimated GFR > 60 Random Glucose 84 Calcium 8.4 COVID-19 (DARREN) COVID-19 Clin Com Hep Bs Antigen Hep Bs Antibody Hep B Core Total Ab Hepatitis C Ab (EIA) Microbiology Microbiology Results: Microbiology 05/07/21 22:30 Blood Culture - Preliminary Blood - Venous No growth after 24 hours. 05/07/21 22:30 Blood Culture - Preliminary Blood - Venous No growth after 24 hours. Assessment and Plan (1) Ureteral stone with hydronephrosis: Status: Acute (2) Pyelonephritis: Status: Acute Plan 30-year-old female with past medical history of kidney stones presents to the hospital with flank pain found to have an obstructing renal calculi # obstructing renal calculi 4 mm obstructing left ureteral calculus with evidence of hydroureteronephrosis on CT urology consulted, to do cystoscopy today Keep NPO for now pain control Continue IV fluids # pyelonephritis evidence of perinephric stranding CVA tenderness Continue with IV antibiotics Negative blood cultures # headaches stable at this time, with no headache continue home sumatriptan DVT prophylaxis: SCDs in anticipation of surgical intervention Quality Stroke Does the patient have a stroke diagnosis?: No VTE Prior VTE?: No VTE Risk Level:: Medical - moderate - high VTE Device Contraindication: Treatment Not Indicated VTE Drug Contraindication: N/A - Med Ordered
--- NOTE | 2021-05-09 12:47 | P.PNUR_ITS ---
Subjective Subjective Date of Service: 05/09/21 Interval history: Recurrent stone make Pain is well managed with parental pain medication Plan for left ureteroscopy with laser lithotripsy this afternoon. She is aware she has bilateral stones. Physical Exam Vital Signs: Vital Signs: Last Vital Signs Temp 98.6 F 05/09/21 11:08 Pulse 50 05/09/21 11:08 Resp 18 05/09/21 11:08 BP 122/72 05/09/21 11:08 Pulse Ox 98 05/09/21 11:08 BMI result Body Mass Index 35.0 Const: General: cooperative, healthy appearing, comfortable and no acute distress Orientation/consciousness: patient oriented x3 HENMT: Face and sinus: Yes normal facial exam Mouth: moist mucous membranes Neck: Neck: Yes normal visual inspection, Yes full ROM and Yes trachea midline Chest: Chest palpation & inspection: normal inspection of the chest Resp: Effort & Inspection: normal respiratory effort, able to speak in complete sentences and no respiratory distress GI: Inspection: Yes normal to inspection Back/Spine/Pelvis: Cervical Spine: normal cervical lordosis Thoracic/Lumbar Spine: thoracic and lumbar spine normal to inspection Skin: General skin exam: no rashes or lesions noted Neuro: General: patient oriented x3, tone normal and moves all extremities Extrem: General: Yes normal to inspection and Yes capillary refill normal Urology Results Labs CBC & Chem 7: 05/09/21 06:40 05/09/21 06:40 Labs: Laboratory Results - last 24 hr 05/07/21 05/08/21 05/09/21 21:53 15:22 06:40 WBC 5.7 RBC 3.88 L Hgb 11.6 L Hct 34.7 L MCV 89.4 MCH 29.9 MCHC 33.4 RDW 11.9 Plt Count 243 MPV 10.6 Absolute Nucleated RBC 0.000 Nucleated RBC % (auto) 0.0 Sodium Potassium Chloride Carbon Dioxide Anion Gap BUN Creatinine Estim Creat Clear Calc Estimated GFR Random Glucose Calcium COVID-19 (DARREN) Negative COVID-19 Clin Com See Note Hep Bs Antigen Negative Hep Bs Antibody NONREACTIVE Hep B Core Total Ab Nonreactive Hepatitis C Ab (EIA) Nonreactive 05/09/21 06:40 WBC RBC Hgb Hct MCV MCH MCHC RDW Plt Count MPV Absolute Nucleated RBC Nucleated RBC % (auto) Sodium 141 Potassium 3.7 Chloride 109 H Carbon Dioxide 27 Anion Gap 9 L BUN 5 L Creatinine 0.70 Estim Creat Clear Calc 126.0 Estimated GFR > 60 Random Glucose 84 Calcium 8.4 COVID-19 (DARREN) COVID-19 Clin Com Hep Bs Antigen Hep Bs Antibody Hep B Core Total Ab Hepatitis C Ab (EIA) Progress Note: A&P Assessment and plan (1) Ureteral stone with hydronephrosis: Status: Acute Plan Ureteroscopy We discussed the nature of the decision and reasonable alternatives for performing the above surgery. Interventions include chemical dissolution, ESWL, ureteroscopy with laser lithotripsy and stent placement, PCNL. Options such as medical therapy were discussed. The relative uncertainties and benefits related to each alternate procedure were adequately discussed. General surgical risks including, but not limited to, pain , bleeding, infection, myocardial infarction, pulmonary embolus, deep vein thrombosis and cerebrovascular accident which may result in further hospitalization were discussed. Full disclosure of the procedure as well as all major risks, benefits and complications were discussed including but not limited to damage to the urethra, bladder and kidney infection, damage to the ureter, stent migration or malposition, scarring to the renal pelvis, remnant stone fragments, subsequent stone passage with need for secondary procedures. The overall secondary procedure rate is approximately 10-15%. The success rate of the procedure was discussed. Success of the procedure in the short-term does not necessarily guarantee that long-term success will be maintained. Suitable follow up will need to be maintained. The patient showed understanding of discussion and wishes to proceed with - cystoscopy, retrograde, ureteroscopy, possible lithotripsy/stone basketing and stent on the Left side semi rigid ureteroscopy Fall Risk Details Current Medications: Current Medications Acetaminophen (Acetaminophen 325 Mg Tablet) 650 mg PO Q6H PRN PRN Reason: Pain, Mild (Pain Scale 1-3) Docusate Sodium (Docusate Sodium 100 Mg Capsule) 100 mg PO DAILY PRN PRN Reason: Constipation Last Admin: 05/08/21 18:16 Dose: 100 mg Documented by: Ceftriaxone Sodium 1 gm/ (Sodium Chloride) 50 mls @ 100 mls/hr IV Q24H [facility] Last Infusion: 05/08/21 21:55 Dose: Infused Documented by: Lactated Ringer's (Lr) 1,000 mls @ 100 mls/hr IVCONT .Q10H [facility] Last Admin: 05/09/21 05:25 Dose: 100 mls/hr Documented by: Morphine Sulfate (Morphine Sulfate 4 Mg/Ml Cartridge) 4 mg IVPUSH Q4H PRN; Protocol PRN Reason: Pain, Severe (Pain Scale 7-10) Last Admin: 05/09/21 05:28 Dose: 4 mg Documented by: Ondansetron HCl (Ondansetron Hcl 4 Mg/2 Ml Vial) 4 mg IVPUSH Q8H PRN PRN Reason: Nausea and Vomiting Last Admin: 05/08/21 18:56 Dose: 4 mg Documented by: Sodium Chloride (0.9 % Sodium Chloride Flush 3 Ml Syringe) 3 ml IVFLUSH [facility] Last Admin: 05/09/21 09:08 Dose: 3 ml Documented by: Sumatriptan Succinate (Sumatriptan Succinate 50 Mg Tablet) 50 mg PO DAILY PRN PRN Reason: for migraine Last Admin: 05/08/21 20:44 Dose: 50 mg Documented by: Time Spent With Patient Time: Total time spent is greater than 50% in coordination of care (as documented) at patient's floor/unit and/or counseling patient: Time with patient: less than 15 minutes Progress Note: Quality Stroke Does the patient have a stroke diagnosis?: No
--- NOTE | 2021-05-09 19:26 | P.CONAN_ITS ---
[facility] Active Problems Active Problems: All Active Problems (Updated 05/08/21 @ 09:01 by Brian Boyd MD) Renal colic (Acute) Pyelonephritis (Acute) Ureteral stone with hydronephrosis (Acute) Headache syndrome (Acute) Past Medical History Medical History Depression Headache syndrome History of kidney stones Family History Family History Father No problems noted. Mother Breast cancer Maternal Grandmother No problems noted. Maternal Grandfather No problems noted. Paternal Grandfather No problems noted. Paternal Grandmother No problems noted. Maternal Aunt No problems noted. Brother No problems noted. Brother No problems noted. Brother No problems noted. Sister No problems noted. Sister No problems noted. Son No problems noted. Daughter No problems noted. Family history of problems with anesthesia: No Surgical History Surgical History (Updated 05/09/21 @ 15:54 by Rita Mckinnon RN) History of lithotripsy Hx of cholecystectomy History of Problems with Anesthesia: No Social History Social History Household Members: Family Housing: Apartment Alcohol intake: never Patient Tobacco Use Status: Never used Tobacco service: No Current occupational status: employed Meds Allergies Allergy/AdvReac Type Severity Reaction Status Date / Time No Known Allergies Allergy Verified 02/10/20 14:24 [No Known Allergies*] control Allergy Unknown migraine Uncoded 11/11/19 00:00 Active Medications: Current Medications Acetaminophen (Acetaminophen 325 Mg Tablet) 650 mg PO Q6H PRN PRN Reason: Pain, Mild (Pain Scale 1-3) Docusate Sodium (Docusate Sodium 100 Mg Capsule) 100 mg PO DAILY PRN PRN Reason: Constipation Last Admin: 05/08/21 18:16 Dose: 100 mg Documented by: Ceftriaxone Sodium 1 gm/ (Sodium Chloride) 50 mls @ 100 mls/hr IV Q24H RADU Last Infusion: 05/08/21 21:55 Dose: Infused Documented by: Lactated Ringer's (Lr) 1,000 mls @ 100 mls/hr IVCONT .Q10H RADU Last Admin: 05/09/21 14:12 Dose: 100 mls/hr Documented by: Morphine Sulfate (Morphine Sulfate 4 Mg/Ml Cartridge) 4 mg IVPUSH Q4H PRN; P rotocol PRN Reason: Pain, Severe (Pain Scale 7-10) Last Admin: 05/09/21 14:17 Dose: 4 mg Documented by: Ondansetron HCl (Ondansetron Hcl 4 Mg/2 Ml Vial) 4 mg IVPUSH Q8H PRN PRN Reason: Nausea and Vomiting Last Admin: 05/08/21 18:56 Dose: 4 mg Documented by: Sodium Chloride (0.9 % Sodium Chloride Flush 3 Ml Syringe) 3 ml IVFLUSH QSHIFT RADU Last Admin: 05/09/21 14:19 Dose: 3 ml Documented by: Sumatriptan Succinate (Sumatriptan Succinate 50 Mg Tablet) 50 mg PO DAILY PRN PRN Reason: for migraine Last Admin: 05/08/21 20:44 Dose: 50 mg Documented by: Exam Exam Date and Time: May 09, [id number] Height,Weight and Vital Signs: Height 5 ft 3 in Weight 89.7 kg Last Vital Signs Temp 97.3 F 05/09/21 15:12 Pulse 48 L 05/09/21 15:12 Resp 18 05/09/21 15:12 BP 119/54 L 05/09/21 15:12 Pulse Ox 95 05/09/21 15:12 Pertinent Lab Results Pertinent Lab Results: Laboratory Tests 05/07/21 05/07/21 05/07/21 17:41 17:55 18:59 WBC 9.8 RBC 4.61 Hgb 13.6 Hct 40.5 MCV 87.9 MCH 29.5 MCHC 33.6 RDW 12.0 Plt Count 330 MPV 9.8 Immature Gran % (Auto) 0.3 Neut % (Auto) 73.9 H Lymph % (Auto) 19.3 L [place] % (Auto) 5.0 Eos % (Auto) 1.1 Baso % (Auto) 0.4 Lymph # (Auto) 1.9 [place] # (Auto) 0.5 Eos # (Auto) 0.1 Baso # (Auto) 0.0 Abs Immat Gran (auto) 0.03 Absolute Neuts (auto) 7.3 Absolute Nucleated RBC 0.000 Nucleated RBC % (auto) 0.0 Sodium 139 Potassium 3.4 Chloride 106 Carbon Dioxide 23 Anion Gap 13 BUN 7 L Creatinine 0.77 Estim Creat Clear Calc 107.2 Estimated GFR > 60 Random Glucose 115 Lactic Acid Calcium 9.0 Total Bilirubin 0.6 Direct Bilirubin 0.3 AST 33 H ALT 59 H Alkaline Phosphatase 73 Total Protein 6.7 Albumin 3.9 Lipase 20 Urine Color DK YELLOW Urine Appearance CLOUDY Urine pH 6.0 Ur Specific [place] >= 1.030 H Urine Protein 1+ H Urine Glucose (UA) NEG Urine Ketones 15 Urine Blood 2+ H Urine Nitrite NEG Ur Leukocyte Esterase NEG Urine RBC 10-14 H Urine WBC 0-2 Ur Squamous Epith Cells 4+ Calcium Oxalate Crystal 2+ Amorphous Sediment 2+ Urine Bacteria NONE Hyaline Casts 0-2 Urine Mucus 3+ Urine Test COVID-19 (DARREN) COVID-19 Clin Com Hep Bs Antigen Hep Bs Antibody Hep B Core Total Ab Hepatitis C Ab (EIA) 05/07/21 05/07/21 05/07/21 18:59 21:53 21:53 WBC RBC Hgb Hct MCV MCH MCHC RDW Plt Count MPV Immature Gran % (Auto) Neut % (Auto) Lymph % (Auto) [place] % (Auto) Eos % (Auto) Baso % (Auto) Lymph # (Auto) [place] # (Auto) Eos # (Auto) Baso # (Auto) Abs Immat Gran (auto) Absolute Neuts (auto) Absolute Nucleated RBC Nucleated RBC % (auto) Sodium Potassium Chloride Carbon Dioxide Anion Gap BUN Creatinine Estim Creat Clear Calc Estimated GFR Random Glucose Lactic Acid 1.0 Calcium Total Bilirubin Direct Bilirubin AST ALT Alkaline Phosphatase Total Protein Albumin Lipase Urine Color Urine Appearance Urine pH Ur Specific [place] Urine Protein Urine Glucose (UA) Urine Ketones Urine Blood Urine Nitrite Ur Leukocyte Esterase Urine RBC Urine WBC Ur Squamous Epith Cells Calcium Oxalate Crystal Amorphous Sediment Urine Bacteria Hyaline Casts Urine Mucus Urine Test NEGATIVE COVID-19 (DARREN) COVID-19 Clin Com Hep Bs Antigen Negative Hep Bs Antibody NONREACTIVE Hep B Core Total Ab Nonreactive Hepatitis C Ab (EIA) Nonreactive 05/08/21 05/08/21 05/08/21 06:45 06:45 15:22 WBC 7.6 RBC 3.92 L Hgb 11.3 L Hct 35.1 L MCV 89.5 MCH 28.8 MCHC 32.2 RDW 12.1 Plt Count 276 MPV 10.3 Immature Gran % (Auto) 0.1 Neut % (Auto) 65.6 Lymph % (Auto) 26.6 [place] % (Auto) 6.5 Eos % (Auto) 0.9 Baso % (Auto) 0.3 Lymph # (Auto) 2.0 [place] # (Auto) 0.5 Eos # (Auto) 0.1 Baso # (Auto) 0.0 Abs Immat Gran (auto) 0.01 Absolute Neuts (auto) 5.0 Absolute Nucleated RBC 0.000 Nucleated RBC % (auto) 0.0 Sodium 141 Potassium 4.0 Chloride 109 H Carbon Dioxide 26 Anion Gap 10 L BUN 5 L Creatinine 0.70 Estim Creat Clear Calc 117.9 Estimated GFR > 60 Random Glucose 95 Lactic Acid Calcium 8.6 Total Bilirubin Direct Bilirubin AST ALT Alkaline Phosphatase Total Protein Albumin Lipase Urine Color Urine Appearance Urine pH Ur Specific [place] Urine Protein Urine Glucose (UA) Urine Ketones Urine Blood Urine Nitrite Ur Leukocyte Esterase Urine RBC Urine WBC Ur Squamous Epith Cells Calcium Oxalate Crystal Amorphous Sediment Urine Bacteria Hyaline Casts Urine Mucus Urine Test COVID-19 (DARREN) Negative COVID-19 Clin Com See Note Hep Bs Antigen Hep Bs Antibody Hep B Core Total Ab Hepatitis C Ab (EIA) 05/09/21 05/09/21 06:40 06:40 WBC 5.7 RBC 3.88 L Hgb 11.6 L Hct 34.7 L MCV 89.4 MCH 29.9 MCHC 33.4 RDW 11.9 Plt Count 243 MPV 10.6 Immature Gran % (Auto) Neut % (Auto) Lymph % (Auto) [place] % (Auto) Eos % (Auto) Baso % (Auto) Lymph # (Auto) [place] # (Auto) Eos # (Auto) Baso # (Auto) Abs Immat Gran (auto) Absolute Neuts (auto) Absolute Nucleated RBC 0.000 Nucleated RBC % (auto) 0.0 Sodium 141 Potassium 3.7 Chloride 109 H Carbon Dioxide 27 Anion Gap 9 L BUN 5 L Creatinine 0.70 Estim Creat Clear Calc 126.0 Estimated GFR > 60 Random Glucose 84 Lactic Acid Calcium 8.4 Total Bilirubin Direct Bilirubin AST ALT Alkaline Phosphatase Total Protein Albumin Lipase Urine Color Urine Appearance Urine pH Ur Specific [place] Urine Protein Urine Glucose (UA) Urine Ketones Urine Blood Urine Nitrite Ur Leukocyte Esterase Urine RBC Urine WBC Ur Squamous Epith Cells Calcium Oxalate Crystal Amorphous Sediment Urine Bacteria Hyaline Casts Urine Mucus Urine Test COVID-19 (DARREN) COVID-19 Clin Com Hep Bs Antigen Hep Bs Antibody Hep B Core Total Ab Hepatitis C Ab (EIA) Airway Heart: RRR Lungs: CTA Assessment and Plan Assessment Anesthesia Assessment: Anesthesia Plan Discussed Final Anesthetic Review Family History of Problems with Anesthesia: No History of Problems with Anesthesia: No NPO: Yes ASA Class: II Final Preanesthetic Review: No Changes in Pt Med Stat, Meds/Allgs Chart Reviewed, Consent Obtained/Reviewed and Anes Risks/Benef Reviewed Patient Risk: Low Procedure Risk: Low Anesthetic Plan Anesthetic Plan: GA Disposition: Standard PACU
--- NOTE | 2021-05-09 20:58 | MHC.SHP ---
Pre-Procedural Eval Section A Date of Service: 05/09/21 The patient is an INPATIENT: Yes Changes since office visit: No Cold of Flu in the past 2 weeks, No New Medical Problems, No Changes in Medication and No Patient answered all questions The History & Physical has been completed within 30 days and I have reviewed it.: Yes Section B Chief Complaint: pyelonephritis, obstructing renal calculi Allergies: Allergies Allergy/AdvReac Type Severity Reaction Status Date / Time No Known Allergies Allergy Verified 02/10/20 14:24 [No Known Allergies*] control Allergy Unknown migraine Uncoded 11/11/19 00:00 Plan Diagnosis/Plan: Unchanged ( Both ostia, left retrograde, left ureteroscopy laser lithotripsy stent placement) I have reviewed the history and physical and performed a pertinent physical examination on my patient. No changes have occurred unless specified.
--- NOTE | 2021-05-09 21:34 | W.PM.OPN ---
Operative Note Operative Note Date of Service: 05/09/21 Narrative: PreOperative Diagnosis: distal left ureteric stone Post Operative Diagnosis: distal left ureteric stone Procedure: - cystoscopy, left retrograde - left dilatation of ureteric orifice under fluoroscopy - left ureteroscopy - left stent placement Surgeon: Dr Rylan Michael Anesthesia: General Indications for procedure: 30-year-old female. Recurrent stone former. Presents with 4 mm distal left ureteric stone associated nausea and vomiting. Responded to parental pain management. Here for ureteroscopy for laser lithotripsy. Procedure: After informed consent was verified patient was brought to the operating placed in supine position. Anesthesia was administered per protocol. Patient was placed in modified dorsal lithotomy position and prepped and draped in a sterile fashion. Safety pause time-out and side of surgery confirmed. Antibiotics confirmed. A 22 Ghanaian cystoscope was inserted per urethra. Bladder was normal in its entirety. Both ureteric orifices were in normal position. The left ureteric orifice was cannulated and a retrograde examination was performed. a junction between distal and mid ureter small filling defects seen . A Sensor guidewire was placed up to the level of the renal pelvis under fluoroscopy. The rigid cystoscope was removed. A Masoud dilator was placed over the Sensor guidewire and used to dilate the ureteric orifice under fluoroscopy. The dilator was removed. The semi rigid ureteral scope was placed alongside the Sensor guidewire. The stone was encountered. As we were preparing to use the laser to break the stone the stone floated back up the ureter and into the kidney. We went up after the stone however was in the kidney. Decision made to place a flexible ureteric stent. A 6 Ghanaian by 24 cm double-J stent was placed into the renal pelvis and bladder under a combination of fluoroscopy and direct visualization. The bladder was emptied. The patient tolerated the procedure well and was extubated in the operating room, and transferred in stable condition to the recovery area. Pathology: No stones Drains: stent
[2021-05-09] MEDS: SUMAtriptan succinate 50 MG TABLET PO (22:55)
[2021-05-10] MEDS: oxyCODONE HCl Immed Release 5 MG TABLET PO (01:02)
[2021-05-10] MEDS: Lactated Ringers 1,000 ML 100 ML IVCONT ×2 (01:03→09:12)
[2021-05-10 03:12] VITALS: BP 117/64; PULSE 55; RESP 18; TEMP 36.7; O2SAT 96
[2021-05-10 06:00] VITALS: BMI 34.9
[2021-05-10 07:00] VITALS: BP 115/66; PULSE 53; RESP 18; TEMP 37.1; O2SAT 98
[2021-05-10 07:16] LABS: Anion Gap 12 (12-20); Blood Urea Nitrogen 5 mg/dL (9-16); Calcium 8.9 mg/dL (8.4-10.2); Carbon Dioxide 26 mmol/L (22-29); Chloride 106 mmol/L (96-108); Creatinine Clr Calc Pharmacy 122.3; Estimated Glomerular Filt Rate > 60; Glucose Random 84 mg/dL (60-115); Potassium 3.8 mmol/L (3.3-5.1); Sodium 140 mmol/L (135-145)
--- NOTE | 2021-05-10 08:16 | MHC.CM.PN ---
Patient has been medically cleared for dc to home today, self care.
--- NOTE | 2021-05-10 08:53 | HO.POSTANES ---
Post Anesthesia Evaluation Post Anesthesia Evaluation Vital Signs: Vital Signs Temp Pulse Resp BP Pulse Ox 05/10/21 07:00 98.7 F 53 18 115/66 98 05/10/21 03:12 98.0 F 55 18 117/64 96 05/09/21 22:25 97.7 F 69 15 133/63 97 05/09/21 21:44 94 18 157/99 H 95 05/09/21 21:38 97.2 F 101 H 16 143/97 H 94 Anesthesia: General Mental Status: Awake Pain Control: Satisfactory Nausea/Vomiting: None Hydration: Adequate Anesthesia-Related Issues: No Anes. Related Issues
[2021-05-10] MEDS: 0.9 % Sodium Chloride Flush 3 ML SYRINGE IVFLUSH (09:10)
--- NOTE | 2021-05-10 09:27 | PM.DS ---
DS: Providers Provider Date of Service: 05/10/21 Date of admission: 05/07/21 21:36 Primary care physician: Oriana Pepper MD Consults: 05/07/21 21:35 Consult to Urology Routine Consulting Provider: Hi Cespedes III Reason for consultation: Obstructing renal stone Has provider been notified: No DS: Diagnosis Discharge Diagnosis (1) Ureteral stone with hydronephrosis: Status: Acute DS: Summary Hospital Course Hospital Course: Admission note HPI This is a 30-year-old female with past medical history of headaches, as well as kidney stones who presents to the hospital with complaints of left flank pain.? Patient reports that her symptoms started the day of presentation, 01/02, associated with chills no fever, radiating down to her hip and groin, worse with movement, better with pain control in the ED, she has also noticed decreased urine output, no dysuria or urgency.? She reports history of kidney stone and treatment with lithotripsy in the past.? She denies any abdominal pain no diarrhea constipation, no chest pain, no shortness of breath, no palpitations, no headache or change in vision, and no lower extremity edema.? On arrival to the ED patient hemodynamically stable with no significant abnormal vitals Labs are significant for 9.8, otherwise unremarkable.? UA is positive 9.8, otherwise unremarkable.? UA is negative for any acute infection, abdominal/pelvic CT shows an an obstructing 4 mm left distal ureteral calculus which could explain left-sided flank pain.? Left hydroureteronephrosis and says asymmetric left renal swelling and perinephric stranding urology consult, admit to Medicine, Patient given IV antibiotics and will be admitted for further management Hospital course The patient was admitted to the hospital for treatment of the nephritis secondary to obstructive ureteric stone. She was treated with IV fluid, IV antibiotics as blood and urine cultures remain negative during the hospital stay. Evaluated by urologist who did cystoscopy with stent placement and removal of the stone. Plan to be discharged home to finish total of 10 days of antibiotics of Ceftin. Time Spent with Patient Time attestation: Total time spent providing and/or coordinating discharge services: Discharge coordination time: Greater than 30 minutes Quality: Stroke Does the patient have a stroke diagnosis?: No Physical Exam Vital Signs: Vital Signs: Last Vital Signs Temp 98.7 F 05/10/21 07:00 Pulse 53 05/10/21 07:00 Resp 18 05/10/21 07:00 BP 115/66 05/10/21 07:00 Pulse Ox 98 05/10/21 07:00 BMI result Body Mass Index 34.9 Const: Other: Constitutional : Alert, oriented, not in distress Neck : Normal inspection, Supple Cardiovascular : RRR, S1 S2, no lower extremity edema Respiratory : Good bilateral air entry, no crackles, wheezes or rhonchi Gastrointestinal: soft, lax, Normal bowel sounds, Non tender Skin : Warm, Dry Neurology, very minimal left CVA tenderness Neurological : Alert & oriented x3, No focal deficit DS: Data Data Completed and Pending Labs on day of discharge: Laboratory Results - last 24 hr 05/10/21 06:17 Sodium 140 Potassium 3.8 Chloride 106 Carbon Dioxide 26 Anion Gap 12 BUN 5 L Creatinine 0.72 Estim Creat Clear Calc 122.3 Estimated GFR > 60 Random Glucose 84 Calcium 8.9 Preliminary micro results at discharge 05/07/21 22:30 Blood Culture - Preliminary Blood - Venous No growth after 48 hours. 05/07/21 22:30 Blood Culture - Preliminary Blood - Venous No growth after 48 hours. Discharge Plan Discharge Patient Disposition: Home, Self-Care Discharge Diagnosis: ureteric stone Referrals: Rylan Michael MD [Physician] - 2 Weeks (schedule ESWL) Oriana Pepper MD [Primary Care Provider] - None Discharge Medications: New phenazopyridine [Pyridium] 100 mg tablet 100 mg PO TID PRN (Reason: spasm) 4 Days Qty: 12 0RF tramadol 50 mg tablet 50 mg PO Q6H PRN (Reason: pain (scale score 1-3)) Qty: 8 0RF tamsulosin 0.4 mg capsule 0.4 mg PO BEDTIME 14 Days Qty: 14 0RF cefuroxime axetil 500 mg tablet 500 mg PO BID Qty: 14 0RF Continued sumatriptan succinate 50 mg tablet 50 mg PO DAILY PRN (Reason: for migraine) Qty: 10 0RF Discharge Orders: Discharge Order (Routine); Ordered 05/10/21 Ordered By: Brian Boyd Diet: advance to usual diet Activity on Discharge: As tolerated Stand Alone Forms: Patient Portal Discharge page Care Plan Goals: stones Health Concerns: stones Plan of Treatment: stones Assessment: You had an obstructive stone in in your left kidney. It was removed by intervention by Dr. Michael. Noticed to have infection in your kidney. Treated with IV antibiotics. continue Ceftin for 7 more days to finish total of 10 days of antibiotics. Patient Instructions: Ureteroscopy (DC)
[2021-05-10 10:57] VITALS: BP 92/53; PULSE 55; RESP 18; TEMP 37.1; O2SAT 100
[2021-05-11 03:52] LABS: Hepatitis A Antibody IgM 0.24 Index (0-0.79); ~Hepatitis A Antibody IgM Nonreactive (Nonreactive)
== END 2021-05-10 15:05 | disposition home or self-care (01) | DRG 463 ==
LOC: HO.ED 21:11 → HO.EDOVER 21:55 → HO.IMC 05-08 18:38
PROVIDERS: Nurse Practitioner Family; Urology; Admitting Provider Internal Medicine; Emergency Provider Internal Medicine; PCP Internal Medicine; Visit Provider Student in an Organized Health Care Education/Training Program
PROC: 0T778DZ Dilation of Left Ureter with Intraluminal Device, Via Natural or Artificial Opening Endoscopic (ICD-10-PCS; principal; 2021-05-09 15:10)
DX: N13.6 Pyonephrosis (principal); Z20.822 Contact with and (suspected) exposure to COVID-19; Z79.899 Other long term (current) drug therapy
CPT/HCPCS: 36415; 74176; 80048; 80076; 81001; 81025; 83605; 83690; 85025; 85027; 86704; 86706; 86709; 86803; 87040; 87340; 87635; 93005; 96361; 96365; 96375; 96376; 99285; 99291; C1758; C1769; C2617; J0696; J1885; J2250; J2270; J2405; J3010; Q9967

== ENCOUNTER 2021-06-08 05:58 | Day surgery (SDC) | payer OTHER, SELFPAY ==
[2021-06-02 15:11] VITALS: BMI 29.9
--- NOTE | 2021-06-06 12:04 | P.CONAN_ITS ---
Documented by User: Yessenia Herron NP 06/06/21 12:05 HPI - Anesthesia Eval Consult details Narrative: 30yo F for Left Lithotripsy ESW s/p cysto, etc 05/09/21. No prev ESWL on record PMFSH Active Problems Active Problems: All Active Problems (Updated 06/02/21 @ 15:11 by Lavinia Rivero RN) Ureteral stone with hydronephrosis (Acute) Headache syndrome (Acute) Past Medical History Medical History COVID-19 vaccine series completed Depression Headache syndrome History of kidney stones Family History Family History Father No problems noted. Mother Breast cancer Maternal Grandmother No problems noted. Maternal Grandfather No problems noted. Paternal Grandfather No problems noted. Paternal Grandmother No problems noted. Maternal Aunt No problems noted. Brother No problems noted. Brother No problems noted. Brother No problems noted. Sister No problems noted. Sister No problems noted. Son No problems noted. Daughter No problems noted. Family history of problems with anesthesia: No Surgical History Surgical History History of lithotripsy Hx of cholecystectomy Hx of cystoscopy History of Problems with Anesthesia: No Social History Social History Household Members: Family Housing: Apartment Are you a primary nurse wound care to a significant other at home: No Do you presently have visiting nurse or other home services: No Alcohol intake: never Patient Tobacco Use Status: Never used Tobacco Use of substances other than those prescribed or required for medical reasons: No Have you been hit, kicked, punched, or otherwise hurt by someone within the past year? If so, by whom?: No Are you DNR?: No Advance Directives: No Advance Directives Information Provided: No (patient declined brochure) Advance Directives on File: No Eating poorly because of decreased appetite: No Nutrition Risks: No Nutritional Risk Patient : No Poor oral hygiene: No service: No Current occupational status: employed Meds Allergies Allergy/AdvReac Type Severity Reaction Status Date / Time control pill AdvReac Intermediate Migraine Uncoded 06/02/21 14:53 Exam Exam Date and Time: June 06, 2021 1204 Height,Weight and Vital Signs: Height 5 ft 3 in Weight 76.657 kg Pertinent Lab Results Pertinent Lab Results: Laboratory Tests 05/09/21 05/10/21 06:40 06:17 WBC 5.7 Hgb 11.6 L Hct 34.7 L Plt Count 243 Sodium 140 Potassium 3.8 Chloride 106 Carbon Dioxide 26 BUN 5 L Creatinine 0.72 Narrative Narrative: EKG 04/2021 Vent. Rate : 057 BPM ? ? Atrial Rate : 057 BPM ?? P-R Int : 140 ms? QRS Dur : 086 ms ? ? QT Int : 466 ms ? ? ? P-R-T Axes : 032 043 035 degrees ?? QTc Int : 453 ms ? Sinus bradycardia with sinus arrhythmia T wave abnormality, consider anterior ischemia Abnormal ECG No previous ECGs available Assessment and Plan Assessment Anesthesia Assessment: Chart Reviewed Final Anesthetic Review Family History of Problems with Anesthesia: No History of Problems with Anesthesia: No Documented by User: Sara Dexter MD 06/08/21 07:31 [facility] Past Medical History Medical History COVID-19 vaccine series completed Depression Headache syndrome History of kidney stones Family History Family History Father No problems noted. Mother Breast cancer Maternal Grandmother No problems noted. Maternal Grandfather No problems noted. Paternal Grandfather No problems noted. Paternal Grandmother No problems noted. Maternal Aunt No problems noted. Brother No problems noted. Brother No problems noted. Brother No problems noted. Sister No problems noted. Sister No problems noted. Son No problems noted. Daughter No problems noted. Surgical History Surgical History History of lithotripsy Hx of cholecystectomy Hx of cystoscopy Social History Social History Household Members: Family Housing: Apartment Are you a primary nurse wound care to a significant other at home: No Do you presently have visiting nurse or other home services: No Alcohol intake: never Patient Tobacco Use Status: Never used Tobacco Use of substances other than those prescribed or required for medical reasons: No Have you been hit, kicked, punched, or otherwise hurt by someone within the past year? If so, by whom?: No Are you DNR?: No Advance Directives: No Advance Directives Information Provided: No (patient declined brochure) Advance Directives on File: No Eating poorly because of decreased appetite: No Nutrition Risks: No Nutritional Risk Patient : No Poor oral hygiene: No service: No Current occupational status: employed Meds Allergies Allergy/AdvReac Type Severity Reaction Status Date / Time control pill AdvReac Intermediate Migraine Uncoded 06/02/21 14:53 Exam Airway Mallampati Class: II TM Dist: >3cm Neck ROM: Full Loose/Missing/Broken Teeth: No Heart: RRR Lungs: CTA Assessment and Plan Assessment Anesthesia Assessment: Anesthesia Plan Discussed Final Anesthetic Review NPO: Yes ASA Class: II Final Preanesthetic Review: Meds/Allgs Chart Reviewed, Consent Obtained/Reviewed and Anes Risks/Benef Reviewed Patient Risk: Low Procedure Risk: Low Anesthetic Plan Anesthetic Plan: MAC: Disposition: Standard PACU
--- NOTE | ~2021-06-08 | XR_ITS ---
EXAMINATION: XR ABDOMEN KUB CLINICAL INDICATION: Left renal stone COMPARISON: 05/07/2021 TECHNIQUE: AP view of the abdomen. FINDINGS: Right upper quadrant surgical clips. Left ureteral stent noted. There is a 0.3 cm calcification overlying the midpole of the left kidney. Multiple right-sided calculi noted measuring up to 0.6 cm at the upper pole. No ureteral calculi seen. The lung bases are clear. XR/XR KUB IMPRESSION: Left ureteral stent in place. Evidence of bilateral renal calculi. No ureteral calculi seen.
[2021-06-08 06:26] VITALS: BP 109/63; PULSE 62; RESP 18; TEMP 36.2; O2SAT 94
[2021-06-08 06:32] LABS: UPreg QC Valid YES; Urine Pregnancy NEGATIVE (NEGATIVE)
[2021-06-08] MEDS: Lactated Ringers 1,000 ML 100 ML IVCONT (06:39)
[2021-06-08] MEDS: Acetaminophen 325 MG TABLET 650 MG PO (06:41)
--- NOTE | 2021-06-08 07:25 | MHC.SHP ---
Pre-Procedural Eval Section A Date of Service: 06/08/21 The patient is an INPATIENT: No Changes since office visit: No Cold of Flu in the past 2 weeks, No New Medical Problems, No Changes in Medication and No Patient answered all questions The History & Physical has been completed within 30 days and I have reviewed it.: Yes Section B Chief Complaint: kidney stone Details of Present Illness: cysto stent removal left ESWL Allergies: Allergies Allergy/AdvReac Type Severity Reaction Status Date / Time control pill AdvReac Intermediate Migraine Uncoded 06/02/21 14:53 Review of Systems Sugical H&P ROS: Negative: Constitution, Cardiovascular, Respiratory, Neurological, Psychiatric, Hem-Onc, Allergic/Immunologic, Gastrointestinal, Genitourinary, Musculoskeletal, Integumentary, Endocrine and Eyes/Ears/Nose/Throat Exam Surgical H&P Exam: Normal: HEENT, Normal: Heart, Normal: Lungs, Normal: Extremities, Normal: Abdomen, Normal: Skin and Normal: Neurological Plan Diagnosis/Plan: Unchanged (cysto/stent removal/left ESWL) I have reviewed the history and physical and performed a pertinent physical examination on my patient. No changes have occurred unless specified.
--- NOTE | 2021-06-08 08:12 | W.PM.OPN ---
Operative Note Operative Note Date of Service: 06/08/21 Narrative: PreOperative Diagnosis: Left Renal stones , indwelling stent Post Operative Diagnosis: Left Renal stones , indwelling stent Procedure: Left ESWL, cystoscopy with left stent rim Surgeon: Dr Rylan Michael Anesthesia: mac/sedation Indications for procedure: The patient understands ESWL may be a staged procedure and subsequent intervention may be required based on imaging after ESWL. They also understand there is a risk of bleeding to the kidney, infection, damage to adjacent organs, and stone migration following the procedure. - Imaging 4 mm stone in left renal pelvis with indwelling stent Procedure: After informed consent was verified the patient was brought to the operating room and placed in a supine position. Anesthesia was performed per protocol. Safety pause time-out was performed. Imaging was displayed in the room and laterality confirmed. ESWL was performed. The 1st 500 shocks were performed at 60 hertz. These were performed with increasing power. Once maximum power was reached the rate was increased to 180 hertz. A total of 2500 shocks were given. Targetted imaging with ultrasound/fluoroscopy showed stone smudging suggestive of disintegration. At completion of procedure cystoscopy was performed stent was grasped and removed The patient tolerated the procedure well and was transferred to the recovery area upon completion. Post procedure imaging will be organized. There was no evidence for flank discoloration.
[2021-06-08 08:18] VITALS: BP 106/66; PULSE 69; RESP 18; TEMP 35.9; O2SAT 98
[2021-06-08 08:23] VITALS: BP 109/66; PULSE 71; RESP 18; O2SAT 99
[2021-06-08] MEDS: Phenazopyridine HCL 100 MG TABLET PO (08:24)
[2021-06-08] MEDS: oxyCODONE HCl Immed Release 5 MG TABLET 10 MG PO (08:24)
[2021-06-08 08:28] VITALS: BP 115/60; PULSE 70; RESP 18; O2SAT 99
[2021-06-08 08:33] VITALS: BP 116/73; PULSE 70; RESP 18; TEMP 35.8; O2SAT 100
== END 2021-06-08 09:05 | disposition home or self-care (01) ==
PROVIDERS: Nurse Practitioner; PCP Internal Medicine; Visit Provider Urology
PROC: (CPT 50590; principal; 2021-06-08 07:30)
DX: N20.0 Calculus of kidney (principal); Z46.6 Encounter for fitting and adjustment of urinary device; G43.909 Migraine, unspecified, not intractable, without status migrainosus; Z87.442 Personal history of urinary calculi; Z79.899 Other long term (current) drug therapy; Z90.49 Acquired absence of other specified parts of digestive tract
CPT/HCPCS: 50590; 52310; 74018; 81025; J2250; J3010

== ENCOUNTER → 2021-07-21 08:51 | Outpatient (BNVA) | payer OTHER, SELFPAY | PROVIDERS: PCP Internal Medicine; Visit Provider Urology | DX: Z01.818 Encounter for other preprocedural examination (principal); N20.0 Calculus of kidney; N20.1 Calculus of ureter | CPT/HCPCS: 99212 ==

== ENCOUNTER 2021-07-23 02:24 | Emergency (ER) | payer OTHER, SELFPAY ==
--- NOTE | ~2021-07-23 | CT_ITS ---
EXAMINATION: CT ABDOMEN AND PELVIS WITHOUT CONTRAST CLINICAL INFORMATION: Right flank pain. COMPARISON: CT abdomen pelvis 05/07/2021. TECHNIQUE: Multidetector volumetric imaging was performed from the superior aspect of the liver through the pubic symphysis. Sagittal and coronal reformatted images were obtained on the technologist's workstation. This CT examination was performed using dose optimization techniques as appropriate, variously including the following: *Automated exposure control *Adjustment of mA and/or kV according to patient size (this includes techniques or standardized protocols for targeted exams where dose is matched to indication/reason for exam; i.e. extremities or head) *Use of iterative reconstruction technique DLP: 609 mGy-cm FINDINGS: LUNG BASES: The visualized lung bases are unremarkable. LIVER, GALLBLADDER, AND BILIARY TREE: Diffuse low attenuation of the liver suspicious for hepatic steatosis. Cholecystectomy clips noted. No biliary duct dilatation. PANCREAS: Unremarkable. SPLEEN: Unremarkable. ADRENAL GLANDS: Unremarkable. KIDNEYS AND URETERS: No hydronephrosis or perinephric inflammatory changes. Single 2 mm calculus newly identified at the right ureterovesicular junction. Single 2 mm calculus within an upper right renal pole calyx. Single 3 mm diameter calculus immediately proximal to the right ureterovesicular junction residing 10 cm deep to the posterior axillary line (1000 Hounsfield units) unchanged 4 mm calculus in the region of the distal left ureter approximately 1 cm proximal to the left ureterovesicular junction stable compared with 05/07/2021. No additional left sided urolithiasis. BLADDER: Check list of the right ureterovesicular junction as noted above. Partially decompressed. GASTROINTESTINAL TRACT: The appendix is not definitively visualized. No pericecal inflammatory changes are noted. The terminal ileum is normal in appearance. No free intraperitoneal fluid or gas collections. ABDOMINAL WALL: No significant hernia is appreciated. LYMPH NODES: Normal. VASCULAR: Unremarkable. PELVIC VISCERA: Uterus is normal in appearance. Anteroverted. No adnexal lesions. OSSEOUS STRUCTURES: Unremarkable. CT/CT abdomen pelvis wo con IMPRESSION: *Newly identified 2 mm calculus at the right ureterovesicular junction. This finding may represent a partially obstructing calculus. No right-sided hydronephrosis or ureterectasis. This finding is new compared with 05/07/2021. *Nonobstructing right-sided nephrolithiasis as detailed above. *Unchanged 4 mm calculus within the distal left ureter approximately 1 cm proximal to the left ureterovesicular junction stable compared with 05/07/2021. No left-sided hydronephrosis or ureterectasis. *The appendix is not visualized.
[2021-07-23 02:31] VITALS: BP 114/72; PULSE 66; RESP 20; TEMP 36.6; O2SAT 97; BMI 31.8
[2021-07-23 02:52] LABS: Color Urine YELLOW; Glucose Urine UA NEG (NEG); Leukocyte Esterase Urine NEG (NEG); Nitrite Urine POS (NEG); PH 6.5 (5.0-8.0); Specific Gravity - Urine 1.025 (1.005-1.025); UACC Culture Trigger YES; Urine Blood 3+ (NEG); Urine Ketones NEG (NEG); Urine Protein TRACE MG/DL (NEG-TRACE)
[2021-07-23 02:58] LABS: Appearance Urine HAZY
[2021-07-23 02:59] LABS: Bacteria Urine 2+ /LPF; RBC Urine 30-49 /HPF (0); Squamous Epithelial Cell Urine 1+ /LPF
[2021-07-23 03:04] LABS: UPreg QC Valid YES; Urine Pregnancy NEGATIVE (NEGATIVE)
--- NOTE | 2021-07-23 03:48 | ED.GENADULT ---
HPI - General Adult General Chief complaint: General Medical Stated complaint: kidney pain Time Seen by Provider: 07/23/21 02:29 Source: patient Mode of arrival: ambulatory History of Present Illness HPI narrative: 30-year-old female with history renal colic presents with onset of acute right-sided flank pain at midnight with radiation in to the anterior abdomen but not associated with any fever, chills, nausea, vomiting states she has had some mild dysuria. On review of the triage note patient states that she does have a follow-up appointment for lithotripsy on Sunday. Related Data Previous Rx's Medication Instructions Recorded sumatriptan succinate 50 mg tablet 50 mg PO DAILY PRN #10 tab 04/28/20 naproxen 500 mg tablet 500 mg PO BID PRN 7 Days #14 tab 06/08/21 tramadol 50 mg tablet 50 mg PO Q6H PRN #8 tab 06/08/21 prednisone 20 mg tablet 20 mg PO DAILY #4 tab 07/23/21 tamsulosin 0.4 mg capsule (Flomax) 0.4 mg PO BEDTIME #4 cap 07/23/21 tramadol 50 mg tablet 50 mg PO Q8H PRN #10 tab 07/23/21 tramadol 50 mg tablet 50 mg PO Q8H PRN #8 tab 07/23/21 Allergies Allergy/AdvReac Type Severity Reaction Status Date / Time control pill AdvReac Intermediate Migraine Uncoded 07/21/21 08:52 Review of Systems Review of Systems: Pertinent positives and negatives as stated in HPI 10 point review of systems is otherwise negative. [facility] Past Medical History Source: nursing notes reviewed Medical History COVID-19 vaccine series completed Depression Headache syndrome History of kidney stones Surgical History History of lithotripsy Hx of cholecystectomy Hx of cystoscopy Family History Family History Father No problems noted. Mother Breast cancer Maternal Grandmother No problems noted. Maternal Grandfather No problems noted. Paternal Grandfather No problems noted. Paternal Grandmother No problems noted. Maternal Aunt No problems noted. Brother No problems noted. Brother No problems noted. Brother No problems noted. Sister No problems noted. Sister No problems noted. Son No problems noted. Daughter No problems noted. Social History Social History Household Members: Family Housing: Apartment Are you a primary care team coordinator scheduler to a significant other at home: No Do you presently have visiting nurse or other home services: No Alcohol intake: never Patient Tobacco Use Status: Never used Tobacco Advance Directives: No Advance Directives Information Provided: No service: No Current occupational status: employed Physical Exam ED Vital Signs: Vital Signs - 24 hr 07/23/21 02:31 07/23/21 03:55 Temperature 97.9 F 98 F Pulse Rate 66 61 Respiratory Rate 20 16 Blood Pressure 114/72 116/63 Pulse Oximetry 97 99 BMI result Body Mass Index 31.8 VITAL SIGNS: Reviewed. GENERAL: Well developed, well nourished, in no acute distress. HEAD: Normocephalic/atraumatic EYES: PERRLA, EOMI EARS: Ext canals without abnormality OROPHARYNX: no oral lesions noted, posterior pharynx clear LUNGS: Normal breath sounds. No adventitious sounds or accessory muscle use. SpO2<97> CARDIOVASCULAR: Regular rate and rhythm without noted murmurs ABDOMEN: Soft, non-tender, non-distended with bowel sounds , mild right-sided CVA tenderness SKIN: Inspection of the skin reveals no rashes NEUROLOGIC: Alert and oriented x 4. Strength and sensation to light touch were grossly intact x 4. Course Course Course Narrative: 30-year-old female with history and clinical presentation most suspicious for renal colic and doubt gallbladder pathology. Review of all investigations consistent with renal colic in ureterolithiasis with a noted stone on both the right and left. Patient received IV fluids and pain medications and on re-evaluation is feeling much better. This case was also discussed with the urologist and patient has an upcoming appointment to see him on Sunday. Medical Decision Making Lab Data Labs: Lab Results 07/23/21 07/23/21 Range/Units 02:41 02:41 Urine Color YELLOW Urine Appearance HAZY Urine pH 6.5 (5.0-8.0) Ur Specific [place] 1.025 (1.005-1.025) Urine Protein TRACE (NEG-TRACE) MG/DL Urine Glucose (UA) NEG (NEG) MG/DL Urine Ketones NEG (NEG) MG/DL Urine Blood 3+ H (NEG) Urine Nitrite POS H (NEG) Ur Leukocyte Esterase NEG (NEG) Urine RBC 30-49 H (0) /HPF Urine WBC 1-4 (0-4) /HPF Ur Squamous Epith Cells 1+ /LPF Urine Bacteria 2+ /LPF Urine Test NEGATIVE (NEGATIVE) Discharge Plan Discharge Clinical Impression: Renal colic, Ureterolithiasis Patient Disposition: Home, Self-Care Instructions: Renal Colic (ED), Low Oxalate Diet (ED), Ureteral Stones (ED) Additional Instructions: Please take medications as prescribed. Follow-up with Dr. Michael as scheduled. Return to the ER for worsening symptoms. Prescriptions: New tramadol 50 mg tablet 50 mg PO Q8H PRN (Reason: pain) Qty: 10 0RF tamsulosin [Flomax] 0.4 mg capsule 0.4 mg PO BEDTIME Qty: 4 0RF prednisone 20 mg tablet 20 mg PO DAILY Qty: 4 0RF tramadol 50 mg tablet 50 mg PO Q8H PRN (Reason: pain) Qty: 8 0RF No Action sumatriptan succinate 50 mg tablet 50 mg PO DAILY PRN (Reason: for migraine) Qty: 10 0RF tramadol 50 mg tablet 50 mg PO Q6H PRN (Reason: pain (scale score 1-3)) Qty: 8 0RF naproxen 500 mg tablet 500 mg PO BID PRN (Reason: pain) 7 Days Qty: 14 0RF Referrals: Oriana Pepper MD [Primary Care Provider] - Rylan Michael MD [Physician] -
[2021-07-23 03:55] VITALS: BP 116/63; PULSE 61; RESP 16; TEMP 36.6; O2SAT 99
[2021-07-23] MEDS: 0.9 % Sodium Chloride 1,000 ML 999 ML IV (04:06)
[2021-07-23] MEDS: Ketorolac Tromethamine 30 MG/ML VIAL 15 MG IVPUSH (04:07)
[2021-07-23] MEDS: cefTRIAXone sodium 1 GM in 0.9 % Sodium Chloride 50 ML IV (04:07)
[2021-07-23] MEDS: fentaNYL citrate/PF 100 MCG/2 ML VIAL 25 MCG IVPUSH (06:37)
[2021-07-23] MEDS: Tamsulosin HCL 0.4 MG CAPSULE PO (06:38)
[2021-07-23 07:38] VITALS: BP 105/63; PULSE 54; RESP 14; O2SAT 97
== END 2021-07-23 07:49 | disposition home or self-care (01) ==
PROVIDERS: Emergency Provider Student in an Organized Health Care Education/Training Program; PCP Internal Medicine
DX: N20.1 Calculus of ureter (principal); Z87.442 Personal history of urinary calculi
CPT/HCPCS: 74176; 81001; 81025; 87086; 96361; 96365; 96375; 99284; J0696; J1885; J3010

== ENCOUNTER 2021-08-10 09:23 | Emergency (ER) | payer OTHER, SELFPAY ==
--- NOTE | 2021-08-10 09:31 | PC.NURSE ---
no answer to triage
[2021-08-10 09:35] VITALS: BP 134/89; PULSE 71; RESP 16; TEMP 36.9; O2SAT 99; BMI 31.8
[2021-08-10 10:39] LABS: MANUAL DIFF FLAG NO
[2021-08-10 10:46] LABS: Basophils Percent Auto 0.4 % (0-2); Eosinophils Absolute Auto 0.1 X10*3/uL (0.0-0.4); Hematocrit 40.5 % (37.0-47.0); Hemoglobin 13.4 g/dl (12.0-16.0); Imm Gran Abs Auto 0.03 X10*3/uL (0.00-0.03); Imm Gran Pct Auto 0.4 % (0.0-0.4); Lymphocytes Absolute Auto 2.1 X10*3/uL (1.2-4.9); Lymphocytes Percent Auto 26.6 % (20-40); Mean Corpuscular HGB Conc 33.1 g/dl (31.0-35.0); Mean Corpuscular Hemoglobin 28.9 pg (27.0-33.0); Mean Corpuscular Volume 87.5 fL (80.0-98.0); Mean Platelet Volume 9.1 fL (9.4-12.3); Monocytes Absolute Auto 0.3 X10*3/uL (0.1-1.2); Monocytes Percent Auto 4.2 % (2-11); Neutrophils Absolute Auto 5.3 x10*3/uL (2.0-8.3); Neutrophils Percent Auto 67.4 % (45-73); Platelet Count 375 X10*3/uL (160-400); Red Blood Count 4.63 X10*6/uL (4.20-5.50); Red Cell Distribution Width 12.3 % (11.0-16.0); White Blood Count 7.8 X10*3/uL (4.8-10.8)
[2021-08-10 10:57] LABS: Alanine Aminotransferase 29 U/L (0-31); Alkaline Phosphatase 80 U/L (39-117); Anion Gap 11 (12-20); Aspartate Amino Transferase 22 U/L (5-31); Bilirubin Total 0.7 mg/dL (0.0-1.0); Blood Urea Nitrogen 8 mg/dL (9-16); Calcium 9.2 mg/dL (8.4-10.2); Carbon Dioxide 25 mmol/L (22-29); Chloride 106 mmol/L (96-108); Creatinine Clr Calc Pharmacy 107.6; Estimated Glomerular Filt Rate > 60; Glucose Random 99 mg/dL (60-115); Sodium 138 mmol/L (135-145); Total Protein 7.5 g/dL (6.5-8.0)
== END 2021-08-10 13:41 | disposition left against medical advice (07) ==
PROVIDERS: Emergency Provider Emergency Medicine; PCP Psychiatry & Neurology Neurology
DX: R10.9 Unspecified abdominal pain (principal); Z87.442 Personal history of urinary calculi
CPT/HCPCS: 36415; 80053; 85025; 99283

== ENCOUNTER 2021-08-13 01:16 | Emergency (ER) | payer OTHER, SELFPAY ==
[2021-08-13 01:36] LABS: MANUAL DIFF FLAG NO
[2021-08-13 01:37] LABS: Basophils Percent Auto 0.4 % (0-2); Eosinophils Absolute Auto 0.2 X10*3/uL (0.0-0.4); Eosinophils Percent Auto 2.1 % (0-4); Hematocrit 37.5 % (37.0-47.0); Hemoglobin 12.4 g/dl (12.0-16.0); Imm Gran Abs Auto 0.02 X10*3/uL (0.00-0.03); Imm Gran Pct Auto 0.3 % (0.0-0.4); Lymphocytes Absolute Auto 1.5 X10*3/uL (1.2-4.9); Lymphocytes Percent Auto 20.7 % (20-40); Mean Corpuscular HGB Conc 33.1 g/dl (31.0-35.0); Mean Corpuscular Hemoglobin 28.8 pg (27.0-33.0); Mean Corpuscular Volume 87.2 fL (80.0-98.0); Mean Platelet Volume 9.3 fL (9.4-12.3); Monocytes Absolute Auto 0.5 X10*3/uL (0.1-1.2); Monocytes Percent Auto 7.1 % (2-11); Neutrophils Percent Auto 69.4 % (45-73); Platelet Count 331 X10*3/uL (160-400); Red Cell Distribution Width 12.2 % (11.0-16.0); White Blood Count 7.2 X10*3/uL (4.8-10.8)
[2021-08-13 01:45] VITALS: BP 124/90; PULSE 70; RESP 18; TEMP 36.1; O2SAT 99; BMI 31.5
[2021-08-13 01:50] LABS: Appearance Urine CLEAR; Color Urine YELLOW; Glucose Urine UA NEG (NEG); Leukocyte Esterase Urine NEG (NEG); Nitrite Urine NEG (NEG); PH 6.5 (5.0-8.0); Specific Gravity - Urine >= 1.030 (1.005-1.025); UACC Culture Trigger NO; Urine Blood 2+ (NEG); Urine Ketones NEG (NEG); Urine Protein 1+ MG/DL (NEG-TRACE)
[2021-08-13 01:57] LABS: UPreg QC Valid YES; Urine Pregnancy NEGATIVE (NEGATIVE)
[2021-08-13 02:03] LABS: Alanine Aminotransferase 25 U/L (0-31); Albumin Level 3.8 g/dL (3.5-5.0); Alkaline Phosphatase 75 U/L (39-117); Anion Gap 10 (12-20); Aspartate Amino Transferase 19 U/L (5-31); Bilirubin Total 0.6 mg/dL (0.0-1.0); Blood Urea Nitrogen 8 mg/dL (9-16); Calcium 8.9 mg/dL (8.4-10.2); Carbon Dioxide 25 mmol/L (22-29); Chloride 105 mmol/L (96-108); Creatinine Clr Calc Pharmacy 115.9; Estimated Glomerular Filt Rate > 60; Glucose Random 94 mg/dL (60-115); Lipase 24 U/L (8-78); Potassium 3.6 mmol/L (3.3-5.1); Sodium 136 mmol/L (135-145); Total Protein 7.1 g/dL (6.5-8.0)
[2021-08-13 02:13] LABS: Bacteria Urine 1+ /LPF; Squamous Epithelial Cell Urine 2+ /LPF; UACC CULT YES
[2021-08-13 02:14] LABS: Mucus Urine 1+ /LPF
--- NOTE | 2021-08-13 02:37 | ED_ITS ---
HPI - Abdominal Pain General Chief Complaint: Abdominal Pain Stated Complaint: back pain into abdominal area Time Seen by Provider: 08/13/21 02:33 Source: patient and old records reviewed Mode of arrival: ambulatory Limitations: no limitations History of Present Illness MD elicited complaint: flank pain Pertinent past history: kidney stones (07/23 CT scan R sided 2mm renal stone) Onset (ago): day(s) (4) Pain Consistency: constant Location: R flank Severity: severe Quality: stabbing Radiation: R flank Migration to: RLQ Exacerbating factors: nothing Relieving factors: nothing Context: history of similar episodes Associated symptoms: nausea Related Data Previous Rx's Medication Instructions Recorded sumatriptan succinate 50 mg tablet 50 mg PO DAILY PRN #10 tab 04/28/20 naproxen 500 mg tablet 500 mg PO BID PRN 7 Days #14 tab 06/08/21 tramadol 50 mg tablet 50 mg PO Q6H PRN #8 tab 06/08/21 prednisone 20 mg tablet 20 mg PO DAILY #4 tab 07/23/21 tamsulosin 0.4 mg capsule (Flomax) 0.4 mg PO BEDTIME #4 cap 07/23/21 tramadol 50 mg tablet 50 mg PO Q8H PRN #10 tab 07/23/21 tramadol 50 mg tablet 50 mg PO Q8H PRN #8 tab 07/23/21 morphine 15 mg immediate release 15 mg PO TID PRN #12 tab 08/13/21 tablet ondansetron 4 mg disintegrating 4 mg PO Q8H PRN #20 tab 08/13/21 tablet prednisone 20 mg tablet 40 mg PO DAILY 4 Days #8 tab 08/13/21 tamsulosin 0.4 mg capsule 0.4 mg PO DAILY 7 Days #7 cap 08/13/21 Allergies Allergy/AdvReac Type Severity Reaction Status Date / Time control pill AdvReac Intermediate Migraine Uncoded 08/13/21 01:46 Review of Systems Review of Systems Constitutional : No Fever, No Chills ENT/Mouth : No sore throat Eyes: No Eye Pain, No Swelling, No Redness Cardiovascular : No Chest Pain, No SOB Respiratory : No Cough, No Sputum, No Wheezing Gastrointestinal : positive Nausea, no Vomiting, No Diarrhea, positive abdominal pain Genitourinary : no Dysuria, no urinary frequency, noHematuria, positive Flank Pain, no hesitancy Musculoskeletal : No joint pain, No Myalgias Skin : No Skin Lesions, No rash Neuro : No Weakness, No Numbness, No Headache Psych : No Anxiety/Panic, No Depression Heme/Lymph: No Bruising, No Lymphadenopathy Endocrine : No Polyuria, No Polydipsia All other systems reviewed and are negative [facility] Past Medical History Attestation statement: The following information was validated with the patient. Medical History COVID-19 vaccine series completed Depression Headache syndrome History of kidney stones Surgical History History of lithotripsy Hx of cholecystectomy Hx of cystoscopy Family History Family History Father No problems noted. Mother Breast cancer Maternal Grandmother No problems noted. Maternal Grandfather No problems noted. Paternal Grandfather No problems noted. Paternal Grandmother No problems noted. Maternal Aunt No problems noted. Brother No problems noted. Brother No problems noted. Brother No problems noted. Sister No problems noted. Sister No problems noted. Son No problems noted. Daughter No problems noted. Social History Social History Household Members: Family Housing: Apartment Are you a primary rn progressive care to a significant other at home: No Do you presently have visiting nurse or other home services: No Alcohol intake: never Patient Tobacco Use Status: Never used Tobacco Advance Directives: No Advance Directives Information Provided: No service: No Current occupational status: employed Physical Exam ED Vital Signs: Vital Signs - 24 hr 08/13/21 01:45 08/13/21 03:17 08/13/21 04:32 Temperature 97 F Pulse Rate 70 61 Respiratory Rate 18 18 18 Blood Pressure 124/90 H 109/57 L Pulse Oximetry 99 100 BMI result Body Mass Index 31.5 Appearance: Alert. Oriented X3. No acute distress. Anxious pacing appears in pain Eyes: Pupils equal, round and reactive to light. ENT: Pharynx normal. Neck: Normal inspection. Neck supple. CVS: Normal heart rate and rhythm. Pulses normal. Respiratory: No respiratory distress. Breath sounds normal. Abdomen: Soft and L sided abdominal pain holding L flank Skin: Skin warm and dry. Normal skin color. Normal skin turgor. Extremities: No lower extremity edema. No calf ttp Neuro: Oriented X 3. No motor deficit. No sensory deficit. Course Course Course Narrative: kidney function normal no UTI, VS stable, tolerating PO can follow up with Urology this week MDM - Abdominal Pain MDM Narrative Medical decision making narrative: 30 yo female with known hx of renal colic here with R flank pain had CT scan on 07/23 showed 2mm renal stone suspect stone has moved she has no signs of UTI and Cr is normal. At this time will treat pain and start on flomax/prednisone. Will avoid CT scan for radiation risk given age and she just had CT scan done 3 weeks ago. Dispo per clinical improvement. Lab Data Result diagrams: 08/13/21 01:08/13/21 01:31 Labs: Lab Results 08/13/21 08/13/21 08/13/21 Range/Units 01:31 01:31 01:35 WBC 7.2 (4.8-10.8) X10*3/uL RBC 4.30 (4.20-5.50) X10*6/uL Hgb 12.4 (12.0-16.0) g/dl Hct 37.5 (37.0-47.0) % MCV 87.2 (80.0-98.0) fL MCH 28.8 (27.0-33.0) pg MCHC 33.1 (31.0-35.0) g/dl RDW 12.2 (11.0-16.0) % Plt Count 331 (160-400) X10*3/uL MPV 9.3 L (9.4-12.3) fL Immature Gran % (Auto) 0.3 (0.0-0.4) % Neut % (Auto) 69.4 (45-73) % Lymph % (Auto) 20.7 (20-40) % Price % (Auto) 7.1 (2-11) % Eos % (Auto) 2.1 (0-4) % Baso % (Auto) 0.4 (0-2) % Lymph # (Auto) 1.5 (1.2-4.9) X10*3/uL Price # (Auto) 0.5 (0.1-1.2) X10*3/uL Eos # (Auto) 0.2 (0.0-0.4) X10*3/uL Baso # (Auto) 0.0 (0.0-0.2) X10*3/uL Abs Immat Gran (auto) 0.02 (0.00-0.03) X10*3/uL Absolute Neuts (auto) 5.0 (2.0-8.3) x10*3/uL Absolute Nucleated RBC 0.000 (0.0-0.012) X10*3/uL Nucleated RBC % (auto) 0.0 (0.0-0.2) /100WBC Sodium 136 (135-145) mmol/L Potassium 3.6 (3.3-5.1) mmol/L Chloride 105 (96-108) mmol/L Carbon Dioxide 25 (22-29) mmol/L Anion Gap 10 L (12-20) BUN 8 L (9-16) mg/dL Creatinine 0.72 (0.5-1.4) mg/dL Estim Creat Clear Calc 115.9 Estimated GFR > 60 Random Glucose 94 (60-115) mg/dL Calcium 8.9 (8.4-10.2) mg/dL Total Bilirubin 0.6 (0.0-1.0) mg/dL AST 19 (5-31) U/L ALT 25 (0-31) U/L Alkaline Phosphatase 75 (39-117) U/L Total Protein 7.1 (6.5-8.0) g/dL Albumin 3.8 (3.5-5.0) g/dL Lipase 24 (8-78) U/L Urine Color YELLOW Urine Appearance CLEAR Urine pH 6.5 (5.0-8.0) Ur Specific [place] >= 1.030 H (1.005-1.025) Urine Protein 1+ H (NEG-TRACE) MG/DL Urine Glucose (UA) NEG (NEG) MG/DL Urine Ketones NEG (NEG) MG/DL Urine Blood 2+ H (NEG) Urine Nitrite NEG (NEG) Ur Leukocyte Esterase NEG (NEG) Urine RBC 15-29 H (0) /HPF Urine WBC 1-4 (0-4) /HPF Ur Squamous Epith Cells 2+ /LPF Urine Bacteria 1+ /LPF Urine Mucus 1+ /LPF Urine Test (NEGATIVE) 08/13/21 Range/Units 01:35 WBC (4.8-10.8) X10*3/uL RBC (4.20-5.50) X10*6/uL Hgb (12.0-16.0) g/dl Hct (37.0-47.0) % MCV (80.0-98.0) fL MCH (27.0-33.0) pg MCHC (31.0-35.0) g/dl RDW (11.0-16.0) % Plt Count (160-400) X10*3/uL MPV (9.4-12.3) fL Immature Gran % (Auto) (0.0-0.4) % Neut % (Auto) (45-73) % Lymph % (Auto) (20-40) % Price % (Auto) (2-11) % Eos % (Auto) (0-4) % Baso % (Auto) (0-2) % Lymph # (Auto) (1.2-4.9) X10*3/uL Price # (Auto) (0.1-1.2) X10*3/uL Eos # (Auto) (0.0-0.4) X10*3/uL Baso # (Auto) (0.0-0.2) X10*3/uL Abs Immat Gran (auto) (0.00-0.03) X10*3/uL Absolute Neuts (auto) (2.0-8.3) x10*3/uL Absolute Nucleated RBC (0.0-0.012) X10*3/uL Nucleated RBC % (auto) (0.0-0.2) /100WBC Sodium (135-145) mmol/L Potassium (3.3-5.1) mmol/L Chloride (96-108) mmol/L Carbon Dioxide (22-29) mmol/L Anion Gap (12-20) BUN (9-16) mg/dL Creatinine (0.5-1.4) mg/dL Estim Creat Clear Calc Estimated GFR Random Glucose (60-115) mg/dL Calcium (8.4-10.2) mg/dL Total Bilirubin (0.0-1.0) mg/dL AST (5-31) U/L ALT (0-31) U/L Alkaline Phosphatase (39-117) U/L Total Protein (6.5-8.0) g/dL Albumin (3.5-5.0) g/dL Lipase (8-78) U/L Urine Color Urine Appearance Urine pH (5.0-8.0) Ur Specific [place] (1.005-1.025) Urine Protein (NEG-TRACE) MG/DL Urine Glucose (UA) (NEG) MG/DL Urine Ketones (NEG) MG/DL Urine Blood (NEG) Urine Nitrite (NEG) Ur Leukocyte Esterase (NEG) Urine RBC (0) /HPF Urine WBC (0-4) /HPF Ur Squamous Epith Cells /LPF Urine Bacteria /LPF Urine Mucus /LPF Urine Test NEGATIVE (NEGATIVE) Discharge Plan Discharge Clinical Impression: Renal colic Patient Disposition: Home, Self-Care Instructions: Renal Colic (ED) Additional Instructions: return to ED for any worsening symptoms or concerns please call your urologist this week Prescriptions: New prednisone 20 mg tablet 40 mg PO DAILY 4 Days Qty: 8 0RF tamsulosin 0.4 mg capsule 0.4 mg PO DAILY 7 Days Qty: 7 0RF morphine 15 mg tablet 15 mg PO TID PRN (Reason: pain) Qty: 12 0RF Rx Instructions: partial fill okay ondansetron 4 mg tablet,disintegrating 4 mg PO Q8H PRN (Reason: nausea and vomiting) Qty: 20 0RF No Action sumatriptan succinate 50 mg tablet 50 mg PO DAILY PRN (Reason: for migraine) Qty: 10 0RF tramadol 50 mg tablet 50 mg PO Q8H PRN (Reason: pain) Qty: 10 0RF tamsulosin [Flomax] 0.4 mg capsule 0.4 mg PO BEDTIME Qty: 4 0RF prednisone 20 mg tablet 20 mg PO DAILY Qty: 4 0RF tramadol 50 mg tablet 50 mg PO Q8H PRN (Reason: pain) Qty: 8 0RF tramadol 50 mg tablet 50 mg PO Q6H PRN (Reason: pain (scale score 1-3)) Qty: 8 0RF naproxen 500 mg tablet 500 mg PO BID PRN (Reason: pain) 7 Days Qty: 14 0RF Referrals: Rylan Michael MD [Physician] - 2 days Stand Alone Forms: Work/School Release
[2021-08-13] MEDS: 0.9 % Sodium Chloride 1,000 ML 999 ML IV (03:15)
[2021-08-13] MEDS: predniSONE 20 MG TABLET 40 MG PO (03:15)
[2021-08-13 03:17] VITALS: RESP 18
[2021-08-13] MEDS: Tamsulosin HCL 0.4 MG CAPSULE PO (03:17)
[2021-08-13] MEDS: ondansetron HCL 4 MG/2 ML VIAL IVPUSH (03:17)
[2021-08-13] MEDS: Ketorolac Tromethamine 30 MG/ML VIAL IVPUSH (03:17)
[2021-08-13] MEDS: Morphine Sulfate 4 MG/ML CARTRIDGE IVPUSH (03:17)
[2021-08-13 04:32] VITALS: BP 109/57; PULSE 61; RESP 18; O2SAT 100
[2021-08-13] MEDS: Morphine Sulfate Immed Release 15 MG TABLET PO (04:39)
== END 2021-08-13 05:05 | disposition home or self-care (01) ==
PROVIDERS: Emergency Provider Emergency Medicine; PCP Internal Medicine
DX: N23 Unspecified renal colic (principal); Z87.442 Personal history of urinary calculi
CPT/HCPCS: 36415; 80053; 81001; 81025; 83690; 85025; 87086; 96361; 96374; 96375; 99283; 99284; J1885; J2270; J2405

== ENCOUNTER 2021-12-22 19:26 | Emergency (ER) | payer OTHER, SELFPAY ==
--- NOTE | ~2021-12-22 | CT_ITS ---
EXAMINATION: CT ABDOMEN AND PELVIS WITHOUT CONTRAST CLINICAL INFORMATION: Right flank pain COMPARISON: 07/23/2021 and 05/07/2021 TECHNIQUE: Multidetector volumetric imaging was performed from the superior aspect of the liver through the pubic symphysis. Sagittal and coronal reformatted images were obtained on the technologist's workstation. This CT examination was performed using dose optimization techniques as appropriate, variously including the following: *Automated exposure control *Adjustment of mA and/or kV according to patient size (this includes techniques or standardized protocols for targeted exams where dose is matched to indication/reason for exam; i.e. extremities or head) *Use of iterative reconstruction technique DLP: 660 mGy-cm FINDINGS: LUNG BASES: The visualized lung bases are unremarkable. LIVER, GALLBLADDER, AND BILIARY TREE: Hepatic steatosis. Normal size liver. No focal liver lesions. No biliary dilatation. Cholecystectomy. PANCREAS: Unremarkable. SPLEEN: Unremarkable. ADRENAL GLANDS: Unremarkable. KIDNEYS AND URETERS: The kidneys are normal in size, shape, and attenuation. There is a stable 2 mm nonobstructing calculus in the interpolar region of the right kidney. There are 3 punctate nonobstructive calculi in the left kidney. No ureteral calculi, hydronephrosis or hydroureter. No perinephric stranding. BLADDER: Unremarkable. GASTROINTESTINAL TRACT: The small and large bowel are unremarkable. The appendix is unremarkable. ABDOMINAL WALL: No significant hernia is appreciated. LYMPH NODES: Normal. VASCULAR: Unremarkable. PELVIC VISCERA: Uterus and ovaries unremarkable. OSSEOUS STRUCTURES: No acute or suspicious osseous CT/CT abdomen pelvis wo IV con IMPRESSION: * No etiology for the patient's right flank pain is identified. * Bilateral nonobstructive intrarenal calculi as described. * Kidneys otherwise unremarkable. * Hepatic steatosis. * Cholecystectomy.
[2021-12-22 19:30] VITALS: BP 121/72; PULSE 62; RESP 18; TEMP 35.6; O2SAT 100; BMI 31.6
[2021-12-22 19:43] LABS: Basophils Percent Auto 0.4 % (0-2); Eosinophils Absolute Auto 0.1 X10*3/uL (0.0-0.4); Eosinophils Percent Auto 1.8 % (0-4); Hematocrit 36.5 % (37.0-47.0); Hemoglobin 12.5 g/dl (12.0-16.0); Imm Gran Abs Auto 0.04 X10*3/uL (0.00-0.03); Imm Gran Pct Auto 0.6 % (0.0-0.4); Lymphocytes Absolute Auto 2.7 X10*3/uL (1.2-4.9); Lymphocytes Percent Auto 37.5 % (20-40); MANUAL DIFF FLAG NO; Mean Corpuscular HGB Conc 34.2 g/dl (31.0-35.0); Mean Corpuscular Hemoglobin 30.1 pg (27.0-33.0); Mean Platelet Volume 8.9 fL (9.4-12.3); Monocytes Absolute Auto 0.4 X10*3/uL (0.1-1.2); Monocytes Percent Auto 5.4 % (2-11); Neutrophils Absolute Auto 3.9 x10*3/uL (2.0-8.3); Neutrophils Percent Auto 54.3 % (45-73); Platelet Count 335 X10*3/uL (160-400); Red Blood Count 4.15 X10*6/uL (4.20-5.50); Red Cell Distribution Width 12.2 % (11.0-16.0); White Blood Count 7.2 X10*3/uL (4.8-10.8)
[2021-12-22 19:59] LABS: COVID-19 Test Negative (Negative); IDNOW Serial# 55D5AD1C
[2021-12-22 20:05] LABS: Appearance Urine Clear; Color Urine Yellow; Glucose Urine UA Negative (Negative); Leukocyte Esterase Urine Trace (Negative); Nitrite Urine Negative (Negative); PH 7.5 (5.0-9.0); UMIC TRIGGER UACC YES; Urine Blood Negative (Negative); Urine Ketones Negative (Negative); Urine Protein Trace mg/dL (Neg-Trace)
[2021-12-22 20:06] LABS: Alanine Aminotransferase 34 U/L (0-31); Albumin Level 3.9 g/dL (3.5-5.0); Alkaline Phosphatase 65 U/L (39-117); Anion Gap 16 (12-20); Aspartate Amino Transferase 25 U/L (5-31); Bilirubin Direct 0.2 mg/dL (0.0-0.5); Bilirubin Total 0.5 mg/dL (0.0-1.0); Blood Urea Nitrogen 6 mg/dL (9-16); Carbon Dioxide 23 mmol/L (22-29); Chloride 105 mmol/L (96-108); Creatinine Clr Calc Pharmacy 118.6; Estimated Glomerular Filt Rate > 60; Glucose Random 93 mg/dL (60-115); Lipase 25 U/L (8-78); Potassium 3.8 mmol/L (3.3-5.1); Sodium 140 mmol/L (135-145); Total Protein 6.9 g/dL (6.5-8.0)
[2021-12-22 20:07] LABS: UPreg QC Valid YES; Urine Pregnancy NEGATIVE (NEGATIVE)
[2021-12-22 20:10] LABS: Bacteria Urine Trace (None Seen); Hyaline Casts Urine 0-2 /LPF (0-2); RBC Urine 0-2 /HPF (0-2); WBC Urine 0-5 /HPF (0-5)
[2021-12-22 23:21] VITALS: BP 108/63; PULSE 68; RESP 16; TEMP 36.6; O2SAT 99
--- NOTE | 2021-12-22 23:21 | ED_ITS ---
HPI - Abdominal Pain General Chief Complaint: Abdominal Pain Stated Complaint: kidney/headache pain Time Seen by Provider: 12/22/21 23:14 Source: patient Mode of arrival: ambulatory History of Present Illness HPI narrative: 31-year-old female with history of renal colic presents with right flank pain that started yesterday and is associated with nausea, vomiting, chills she is unsure about fever. She denies any urinary pain/burning/frequency. Related Data Previous Rx's Medication Instructions Recorded sumatriptan succinate 50 mg tablet 50 mg PO DAILY PRN for migraine 04/28/20 #10 tabs naproxen 500 mg tablet 500 mg PO BID PRN pain 7 days #14 06/08/21 tabs prednisone 20 mg tablet 20 mg PO DAILY #4 tabs 07/23/21 tamsulosin 0.4 mg capsule (Flomax) 0.4 mg PO BEDTIME #4 caps 07/23/21 morphine 15 mg immediate release 15 mg PO TID PRN pain #12 tabs 08/13/21 tablet ondansetron 4 mg disintegrating 4 mg PO Q8H PRN nausea and 08/13/21 tablet vomiting #20 tabs prednisone 20 mg tablet 40 mg PO DAILY 4 days #8 tabs 08/13/21 tamsulosin 0.4 mg capsule 0.4 mg PO DAILY 7 days #7 caps 08/13/21 Allergies Allergy/AdvReac Type Severity Reaction Status Date / Time control pill AdvReac Intermediate Migraine Uncoded 11/22/21 09:12 Review of Systems Review of Systems Pertinent positives and negatives as stated in HPI 10 point review of systems is otherwise negative. [facility] Past Medical History Source: nursing notes reviewed Medical History COVID-19 vaccine series completed Depression Headache syndrome History of kidney stones Surgical History History of lithotripsy Hx of cholecystectomy Hx of cystoscopy Family History Family History Father No problems noted. Mother Breast cancer Maternal Grandmother No problems noted. Maternal Grandfather No problems noted. Paternal Grandfather No problems noted. Paternal Grandmother No problems noted. Maternal Aunt No problems noted. Brother No problems noted. Brother No problems noted. Brother No problems noted. Sister No problems noted. Sister No problems noted. Son No problems noted. Daughter No problems noted. Social History Social History Household Members: Family Housing: Apartment Are you a primary wound care technician to a significant other at home: No Do you presently have visiting nurse or other home services: No Alcohol intake: never Patient Tobacco Use Status: Never used Tobacco Advance Directives: No Advance Directives Information Provided: No service: No Current occupational status: employed Physical Exam ED Vital Signs: Vital Signs - 24 hr 12/22/21 19:30 12/22/21 23:21 Temperature 96.1 F L 97.9 F Pulse Rate 62 68 Respiratory Rate 18 16 Blood Pressure 121/72 108/63 Pulse Oximetry 100 99 Oxygen Delivery Method Room Air Room Air BMI result Body Mass Index 31.6 VITAL SIGNS: Reviewed. GENERAL: Well developed, well nourished, in no acute distress. HEAD: Normocephalic/atraumatic EYES: PERRLA, EOMI EARS: Ext canals without abnormality OROPHARYNX: no oral lesions noted, posterior pharynx clear LUNGS: Normal breath sounds. No adventitious sounds or accessory muscle use. SpO2<100> CARDIOVASCULAR: Regular rate and rhythm without noted murmurs ABDOMEN: Soft, mild tenderness palpation along right abdomen without rebound, non-distended with bowel sounds. MUSCULOSKELETAL: No tenderness, deformities, or effusions noted on gross inspection. EXTREMITIES: No cyanosis, clubbing or edema. SKIN: Inspection of the skin reveals no rashes NEUROLOGIC: Alert and oriented x 4. Strength and sensation to light touch were grossly intact x 4. Course Course Course Narrative: 31-year-old female with history and clinical presentation suggestive of possible renal colic although patient does appear somewhat comfortable, cholecystitis also seems to be unlikely, UTI/pyelonephritis may be possibility. Review of all investigations negative for acute findings to better explain patient's pain other than possible musculoskeletal. All results discussed with her bedside she was discharged home in stable condition. MDM - Abdominal Pain Lab Data Result diagrams: 12/22/21 19:37 12/22/21 19:37 Labs: Lab Results 12/22/21 12/22/21 12/22/21 Range/Units 19:37 19:37 19:37 WBC 7.2 (4.8-10.8) X10*3/uL RBC 4.15 L (4.20-5.50) X10*6/uL Hgb 12.5 (12.0-16.0) g/dl Hct 36.5 L (37.0-47.0) % MCV 88.0 (80.0-98.0) fL MCH 30.1 (27.0-33.0) pg MCHC 34.2 (31.0-35.0) g/dl RDW 12.2 (11.0-16.0) % Plt Count 335 (160-400) X10*3/uL MPV 8.9 L (9.4-12.3) fL Immature Gran % (Auto) 0.6 H (0.0-0.4) % Neut % (Auto) 54.3 (45-73) % Lymph % (Auto) 37.5 (20-40) % [place] % (Auto) 5.4 (2-11) % Eos % (Auto) 1.8 (0-4) % Baso % (Auto) 0.4 (0-2) % Lymph # (Auto) 2.7 (1.2-4.9) X10*3/uL [place] # (Auto) 0.4 (0.1-1.2) X10*3/uL Eos # (Auto) 0.1 (0.0-0.4) X10*3/uL Baso # (Auto) 0.0 (0.0-0.2) X10*3/uL Abs Immat Gran (auto) 0.04 H (0.00-0.03) X10*3/uL Absolute Neuts (auto) 3.9 (2.0-8.3) x10*3/uL Absolute Nucleated RBC 0.000 (0.0-0.012) X10*3/uL Nucleated RBC % (auto) 0.0 (0.0-0.2) /100WBC Sodium 140 (135-145) mmol/L Potassium 3.8 (3.3-5.1) mmol/L Chloride 105 (96-108) mmol/L Carbon Dioxide 23 (22-29) mmol/L Anion Gap 16 (12-20) BUN 6 L (9-16) mg/dL Creatinine 0.70 (0.5-1.4) mg/dL Estim Creat Clear Calc 118.6 Estimated GFR > 60 Random Glucose 93 (60-115) mg/dL Calcium 9.0 (8.4-10.2) mg/dL Total Bilirubin 0.5 (0.0-1.0) mg/dL Direct Bilirubin 0.2 (0.0-0.5) mg/dL AST 25 (5-31) U/L ALT 34 H (0-31) U/L Alkaline Phosphatase 65 (39-117) U/L Total Protein 6.9 (6.5-8.0) g/dL Albumin 3.9 (3.5-5.0) g/dL Lipase 25 (8-78) U/L Urine Color Urine Appearance Urine pH (5.0-9.0) Ur Specific [place] (1.005-1.025) Urine Protein (Neg-Trace) mg/dL Urine Glucose (UA) (Negative) mg/dL Urine Ketones (Negative) mg/dL Urine Blood (Negative) Urine Nitrite (Negative) Ur Leukocyte Esterase (Negative) Urine RBC (0-2) /HPF Urine WBC (0-5) /HPF Ur Squamous Epith Cells (0-2) /HPF Urine Bacteria (None Seen) Hyaline Casts (0-2) /LPF Urine Test (NEGATIVE) COVID-19 (DARREN) Negative (Negative) COVID-19 Clin Com See Note 12/22/21 12/22/21 Range/Units 19:42 19:42 WBC (4.8-10.8) X10*3/uL RBC (4.20-5.50) X10*6/uL Hgb (12.0-16.0) g/dl Hct (37.0-47.0) % MCV (80.0-98.0) fL MCH (27.0-33.0) pg MCHC (31.0-35.0) g/dl RDW (11.0-16.0) % Plt Count (160-400) X10*3/uL MPV (9.4-12.3) fL Immature Gran % (Auto) (0.0-0.4) % Neut % (Auto) (45-73) % Lymph % (Auto) (20-40) % [place] % (Auto) (2-11) % Eos % (Auto) (0-4) % Baso % (Auto) (0-2) % Lymph # (Auto) (1.2-4.9) X10*3/uL [place] # (Auto) (0.1-1.2) X10*3/uL Eos # (Auto) (0.0-0.4) X10*3/uL Baso # (Auto) (0.0-0.2) X10*3/uL Abs Immat Gran (auto) (0.00-0.03) X10*3/uL Absolute Neuts (auto) (2.0-8.3) x10*3/uL Absolute Nucleated RBC (0.0-0.012) X10*3/uL Nucleated RBC % (auto) (0.0-0.2) /100WBC Sodium (135-145) mmol/L Potassium (3.3-5.1) mmol/L Chloride (96-108) mmol/L Carbon Dioxide (22-29) mmol/L Anion Gap (12-20) BUN (9-16) mg/dL Creatinine (0.5-1.4) mg/dL Estim Creat Clear Calc Estimated GFR Random Glucose (60-115) mg/dL Calcium (8.4-10.2) mg/dL Total Bilirubin (0.0-1.0) mg/dL Direct Bilirubin (0.0-0.5) mg/dL AST (5-31) U/L ALT (0-31) U/L Alkaline Phosphatase (39-117) U/L Total Protein (6.5-8.0) g/dL Albumin (3.5-5.0) g/dL Lipase (8-78) U/L Urine Color Yellow Urine Appearance Clear Urine pH 7.5 (5.0-9.0) Ur Specific [place] 1.020 (1.005-1.025) Urine Protein Trace (Neg-Trace) mg/dL Urine Glucose (UA) Negative (Negative) mg/dL Urine Ketones Negative (Negative) mg/dL Urine Blood Negative (Negative) Urine Nitrite Negative (Negative) Ur Leukocyte Esterase Trace H (Negative) Urine RBC 0-2 (0-2) /HPF Urine WBC 0-5 (0-5) /HPF Ur Squamous Epith Cells 3-5 (0-2) /HPF Urine Bacteria Trace (None Seen) Hyaline Casts 0-2 (0-2) /LPF Urine Test NEGATIVE (NEGATIVE) COVID-19 (DARREN) (Negative) COVID-19 Clin Com Discharge Plan Discharge Clinical Impression: Right flank pain, Musculoskeletal pain Patient Disposition: Home, Self-Care Instructions: Flank Pain (ED), Musculoskeletal Pain (ED) Additional Instructions: 1. Recommend [id number] Tylenol/ibuprofen as needed for pain control. 2. Recommend lidocaine patch applied to area of maximal tenderness. 3. Follow-up with primary care provider. Return to the ER for worsening symptoms. Prescriptions: No Action sumatriptan succinate 50 mg tablet 50 mg PO DAILY PRN (Reason: for migraine) Qty: 10 0RF tamsulosin [Flomax] 0.4 mg capsule 0.4 mg PO BEDTIME Qty: 4 0RF prednisone 20 mg tablet 20 mg PO DAILY Qty: 4 0RF naproxen 500 mg tablet 500 mg PO BID PRN (Reason: pain) 7 Days Qty: 14 0RF prednisone 20 mg tablet 40 mg PO DAILY 4 Days Qty: 8 0RF tamsulosin 0.4 mg capsule 0.4 mg PO DAILY 7 Days Qty: 7 0RF morphine 15 mg tablet 15 mg PO TID PRN (Reason: pain) Qty: 12 0RF Rx Instructions: partial fill okay ondansetron 4 mg tablet,disintegrating 4 mg PO Q8H PRN (Reason: nausea and vomiting) Qty: 20 0RF Referrals: Oriana Pepper MD [Primary Care Provider] -
--- OUTSIDE RECORDS SUMMARY | 2021-12-22 23:38 | XMS_ITS | Continuity of Care Document ---
:1990 Author Organization [facility] Address [address] [place] [address]- Care Team Providers Name Role Phone Not on Staff, PCP Primary Care Physician Unavailable Encounter [facility] Date(s): 10/07/19 - 10/10/[address] [address] Discharge Disposition: A-D/C Home Attending Physician: Lia Hernadez MD Admitting Physician: Cortney Luna MD Referring Physician: Not on Staff, Referring MD Allergies, Adverse Reactions, Alerts Substance Reaction Severity Status NKA Active Immunizations Given and Recorded Vaccine Date Status Refusal Reason pneumococcal 23-valent vaccine1 04/28/11 Given 1Early/Late Reason: Accommodate D/C Medications docusate sodium 100 mg oral capsule 100 mg, 1, capsule, By Mouth, 2 times a day, PRN, Refills 0, Maintenance, Constipation, 10/10/19 11:34:00 EDT Start Date: 10/10/19 Status: OrderedKeflex monohydrate 500 mg oral capsule 1 capsule = 500 mg, By Mouth, 4 times a day, for 5 days, # 20 capsule, 0 Refills, Acute 10/15/19 11:35:00 EDT, 10/10/19 11:35:00 EDT, Capsule, [id number], 159, cm, 10/10/19 7:38:00 EDT, Height,83.2, kg, 10/07/19 8:46:00 EDT, Dry Weight Start Date: 10/10/19 Stop Date: 10/15/19 Status: Orderedpotassium chloride 20 mEq oral tablet, extended release 1 tablet = 20 mEq, By Mouth, 2 times a day, # 4 tablet, 0 Refills, Maintenance, 10/10/19 11:51:00 EDT, ER Tablet, [id number], 159, cm, 10/10/19 7:38:00 EDT, Height, 83.2, kg, 10/07/19 8:46:00 EDT, Dry Weight Start Date: 10/10/19 Stop Date: 10/12/19 Status: OrderedPrenatal AD oral tablet 1 tablet, By Mouth, Daily, # 30 tablet, 0 Refills, Maintenance, 10/07/19 8:19:00 EDT, Tablet Start Date: 10/07/19 Status: Orderedprogesterone 100 mg oral capsule 2 capsule = 200 mg, Vaginally, Daily, 0 Refills, Maintenance, 10/10/19 11:34:00 EDT, Capsule Start Date: 10/10/19 Status: OrderedTylenol 325 mg oral tablet 650 mg, 2, tablet, By Mouth, Every 6 hours, PRN, Refills 0, Maintenance, Pain , Moderate, 10/10/19 11:34:00 EDT Start Date: 10/10/19 Status: Ordered Problem List Condition Effective Dates Status Health Status Informant Sebaceous Cyst(Confirmed) 04/27/11 Active Results Orders for Microbiology Reports Name Date Urine Culture (URINE CULTURE) 10/07/19 Microbiology Reports TEST:Urine Culture STATUS:Auth (Verified) BODY SITE: SOURCE:URINE COLLECTED DATE/TIME:10/07/19 1:07 AMUrine Culture SPECIMEN DESCRIPTION : URINE ADD ON [id number] SPECIAL REQUESTS : NONE CULTURE : >100,000 COL/ML KLEBSIELLA PNEUMONIAE REPORT STATUS : FINAL 10/10/2019 ORGANISM >100,000 COL/ML KLEBSIELLA PNEUMONIAE METHOD MIN. INHIB. CONC. (MCG/ML) AMPICILLIN RESISTANT AMPICILLIN/SULBACTAM RESISTANT AMOXICILLIN/CLAVULAN SUSCEPTIBLE CEFAZOLIN SUSCEPTIBLE CEFEPIME SUSCEPTIBLE CEFTRIAXONE SUSCEPTIBLE CIPROFLOXACIN SUSCEPTIBLE ERTAPENEM SUSCEPTIBLE GENTAMICIN SUSCEPTIBLE LEVOFLOXACIN SUSCEPTIBLE MEROPENEM SUSCEPTIBLE NITROFURANTOIN SUSCEPTIBLE PIPERACILLIN/TAZOBAC SUSCEPTIBLE TRIMETH/SULFAMETHOX SUSCEPTIBLE TETRACYCLINE SUSCEPTIBLERadiology Reports Exam Date Time Procedure Performing Provider Status 10/09/19 3:10 PM C-Arm < 1 Hour Alejandra Haskins; Auth (Sarah barber) Notes:(C-Arm < 1 Hour) Reason For Exam: Right ureteral stent placement and stone removalRESULT: C-Arm < 1 Hour Findings/ Impression: 2 intraoperative fluoroscopic spot images submitted intraoperatively during retrograde ureterography. Blush of contrast in the right pelvis may be within the bladder Fluoroscopy time: 4 seconds Technologist time: 20 minutes WSN: [id number] Ordering Physician: Reilly Tomas Dictated By: Collins Mckinnon MD Dictated Date/Time: 10/09/19 5:01 pm Reviewed By: Collins Mckinnon MD Signed By: Collins Mckinnon MD Signed Date/Time: 10/09/19 5:01 pm Transcribed By: MICHELLE Transcribed Date/Time: 10/09/19 4:58 pm Exam Date Time Procedure Performing Provider Status 10/09/19 3:10 PM Urethrocystography Retrograde Alejandra Haskins; Lizzette (Verified) Notes:(Urethrocystography Retrograde) Reason For Exam: right ureteral stent placement and stone removalRESULT: Urethrocystography Retrograde Findings/ Impression: 2 intraoperative fluoroscopic spot images submitted intraoperatively during retrograde ureterography. Blush of contrast in the right pelvis may be within the bladder Fluoroscopy time: 4 seconds Technologist time: 20 minutes WSN: [id number] Ordering Physician: Reilly Tomas Dictated By: Collins Mckinnon MD Dictated Date/Time: 10/09/19 5:01 pm Reviewed By: Collins Mckinnon MD Signed By: Collins Mckinnon MD Signed Date/Time: 10/09/19 5:01 pm Transcribed By: MICHELLE Transcribed Date/Time: 10/09/19 4:58 pm Vital Signs Most recent to oldest 1 2 3 [Reference Range]: Height 159 cm 159 cm 159 cm (10/10/19 7:38 AM) (10/10/19 12:00 AM) (10/09/19 8: 16 PM) Weight 83.2 kg 83.2 kg (10/09/19 2:17 PM) (10/07/19 7:59 AM) Oxygen Saturation [94-100 %] 100 % 99 % 100 % (10/10/19 7:38 AM) (10/10/19 12:00 AM) (10/09/19 8: 16 PM) Pulse Rate [55-90 bpm] 60 bpm 80 bpm 83 bpm (10/10/19 7:38 AM) (10/10/19 12:00 AM) (10/09/19 8: 16 PM) Body Mass Index [18.5-24.99] 32.91 32.91 *>HHI* *>HHI* (10/09/19 2:17 PM) (10/07/19 7:59 AM) Blood Pressure [90-138/55-84 103/58 mm Hg 106/56 mm Hg 113 /66 mm Hg mm Hg] (10/10/19 7:38 AM) (10/10/19 12:00 AM) (10/09/19 8: 16 PM) Respiratory Rate [16-30 18 br/min 18 br/min 18 br/mi n br/min] (10/10/19 7:38 AM) (10/10/19 12:00 AM) (10/09/19 9: 46 PM) Temperature [96.8-100.4 DegF] 98.1 DegF 98.0 DegF 98 .1 DegF (10/10/19 7:38 AM) (10/10/19 12:00 AM) (10/09/19 8: 16 PM) Liters per Minute 6 L/min 6 L/min (10/09/19 3:15 PM) (10/09/19 3:00 PM) Mode of Delivery (Oxygen) Room air Room air Room a ir (10/10/19 7:38 AM) (10/10/19 12:00 AM) (10/09/19 8: 16 PM) Blood pressure sites Arm, left Arm, left Arm, left (10/10/19 7:38 AM) (10/10/19 12:00 AM) (10/09/19 8: 16 PM) Temperature Route Oral Oral Oral (10/10/19 7:38 AM) (10/10/19 12:00 AM) (10/09/19 8: 16 PM) Dry Weight 83.2 kg (10/07/19 7:59 AM) Weight Obtained Via Standing scale (10/07/19 7:59 AM) Social History Social History Type Response Smoking Status Never (less than 100 in life time) entered on: 10/20/18 Sex
--- OUTSIDE RECORDS SUMMARY | 2021-12-22 23:38 | XMS_ITS | Continuity of Care Document ---
:1990 Author Organization [facility] Address [address] [place] [address]- Care Team Providers Name Role Phone Evgeny GOMEZ, Asma Primary Care Physician [place] [facility] [place] 02/13/20 - 03/14/20 [facility] [address] [place], [place] [address] Attending Physician: Sima Huertas Admitting Physician: AdmSima ralph Referring Physician: Admtr, Sima Allergies, Adverse Reactions, Alerts Substance Reaction Severity Status NKA Active Immunizations Given and Recorded Vaccine Date Status Refusal Reason Measles/Mumps/Rubella Virus Vaccine 02/19/20 Given pneumococcal 23-valent vaccine1 04/28/11 Given 1Early/Late Reason: Accommodate D/C Medications docusate sodium 100 mg oral capsule 100 mg, 1, capsule, By Mouth, 2 times a day, PRN, Refills 0, Maintenance, Constipation, 10/10/19 11:34:00 EDT Start Date: 10/10/19 Status: Orderedibuprofen 600 mg oral tablet 600 mg, 1, tablet, By Mouth, 4 times a day, # 40 tablet, Refills 0, Tot. Refills 0, Maintenance, 02/19/20 0:04:00 EST, Route to Pharmacy Electronically, [facility]/pharmacy #[id number], Partial fill upon patient request, 160, cm, 02/18/20 21:46:00 EST, Height, 86.... Start Date: 02/19/20 Status: Orderedpotassium chloride 20 mEq oral tablet, extended release 1 tablet = 20 mEq, By Mouth, 2 times a day, # 4 tablet, 0 Refills, Maintenance, 10/10/19 11:51:00 EDT, ER Tablet, [facility]/pharmacy #[id number], 159, cm, 10/10/19 7:38:00 EDT, Height, [...] 11:34:00 EDT, Capsule Start Date: 10/10/19 Status: OrderedSumatriptan = 100 mg, Once, MRx1, 0 Refills, Maintenance, 02/17/20 10:37:00 EST, Partial fill upon patient request Start Date: 02/17/20 Status: OrderedTylenol 325 mg oral tablet 650 mg, 2, tablet, By Mouth, Every 6 hours, PRN, Refills 0, Maintenance, Pain , Moderate, 10/10/19 11:34:00 EDT Start Date: 10/10/19 Status: OrderedTylenol 325 mg oral tablet 650 mg, 2, tablet, By Mouth, Every 4 hours, PRN, # 40 tablet, Refills 0, Tot. Refills 0, Maintenance, for pain, 02/19/20 0:04:00 EST, Route to Pharmacy Electronically, [facility]/pharmacy #[id number], Partial fill upon patient request, 160, cm, 02/18/20 21:46:00 E... Start Date: 02/19/20 Status: Ordered Problem List Condition Effective Dates Status Health Status Informant Kidney stones(Confirmed) Active Sebaceous Cyst(Confirmed) 04/27/11 Active Social History Social History Type Response Smoking Status Never (less than 100 in life time) entered on: 10/20/18 Sex
--- OUTSIDE RECORDS SUMMARY | 2021-12-22 23:38 | XMS_ITS | Continuity of Care Document ---
:1990 Author Organization [facility] Address [address] [place] [address]- Care Team Providers Name Role Phone Hugo Goldman MD Primary Care Physician [place] [facility] [place]19 [facility] [address] [place] [address]- [facility] Encounter Diagnosis Tooth infection (Discharge Diagnosis) - 07/19/19 Attending Physician: Galindo GOMEZ, Ga Gross Referring Physician: Hugo Goldman MD Allergies, Adverse Reactions, Alerts Substance Reaction Severity Status NKA Active Immunizations Given and Recorded Vaccine Date Status Refusal Reason pneumococcal 23-valent vaccine1 04/28/11 Given 1Early/Late Reason: Accommodate D/C Medications chlorhexidine topical 0.12% liquid 15 mL = 0.018 Gm, By Mouth, 2 times a day, # 210 mL, 0 Refills, Maintenance, 07/19/19 11:15:00 EDT, Liquid, [id number], 15 mL By Mouth 2 times a day,x7 days, 162, cm, 07/19/19 10:58:00 EDT, Height, 74, kg, 10/21/18 0:05:00 EDT, Dry Weight Start Date: 07/19/19 Stop Date: 07/26/19 Status: OrderedCipro 500 mg oral tablet 1 tablet = 500 mg, By Mouth, Every 12 hours, # 14 tablet, 0 Refills, Maintenance, 10/21/18 0:05:12 EDT Start Date: 10/21/18 Stop Date: 10/28/18 Status: Ordereddocusate sodium 100 mg oral capsule 1 capsule = 100 mg, By Mouth, 2 times a day, PRN for constipation, # 20 capsule, 0 Refills, Maintenance, Capsule Start Date: 04/28/11 Status: Orderedibuprofen 600 mg oral tablet 600 mg, 1, tablet, By Mouth, 4 times a day, # 40 tablet, Refills 0, Tot. Refills 0, Maintenance, 11/08/15 0:25:14, Print Requisition Start Date: 11/08/15 Stop Date: 11/18/15 Status: Orderedibuprofen 600 mg oral tablet 1 tablet = 600 mg, By Mouth, 4 times a day, # 40 tablet, 1 Refills, Maintenance Start Date: 05/01/11 Stop Date: 05/21/11 Status: OrderedImitrex 25 mg oral tablet 1 tablet = 25 mg, By Mouth, Daily, 0 Refills, Maintenance Start Date: 04/27/11 Status: OrderedNorco 325 mg-5 mg oral tablet 1 tablet, By Mouth, Every 4 hours, PRN for pain, # 10 tablet, 0 Refills, Maintenance, 10/21/18 0:04:59 EDT, Tablet, Partial fill upon patient request Start Date: 10/21/18 Status: Ordered Problem List Condition Effective Dates Status Health Status Informant Sebaceous Cyst(Confirmed) 04/27/11 Active Diagnosis Diagnosis Type Effective Dates Health Status Clinical In formant Service Tooth infection Discharge 07/19/19 Diagnosis Vital Signs Most recent to oldest [Reference Range]: 1 Height 162 cm (07/19/19 10:58 AM) Weight 81.0 kg (07/19/19 10:58 AM) Oxygen Saturation [94-100 %] 100 % (07/19/19 10:58 AM) Pulse Rate [55-90 bpm] 75 bpm (07/19/19 10:58 AM) Body Mass Index [18.5-24.99] 30.86 *>HHI* (07/19/19 10:58 AM) Blood Pressure [90-138/55-84 mm Hg] 114/71 mm Hg (07/19/19 10:58 AM) Temperature [96.8-100.4 DegF] 97.4 DegF (07/19/19 10:58 AM) Blood pressure sites Arm, right (07/19/19 10:58 AM) Temperature Route Tympanic (07/19/19 10:58 AM) Weight Obtained Via Standing scale (07/19/19 10:58 AM) Social History Social History Type Response Smoking Status Never (less than 100 in life time) entered on: 10/20/18 Sex
--- OUTSIDE RECORDS SUMMARY | 2021-12-22 23:38 | XMS_ITS | Continuity of Care Document ---
:1990 Author Organization [facility] Address [address] [place] [address]- Care Team Providers Name Role Phone Not on Staff, PCP Primary Care Physician Unavailable [place] [facility] [place]): 10[place]20/19 - 10/27/19 [facility] [address] [place] [address]- [facility] Encounter Diagnosis Exposure to COVID-19 virus (Discharge Diagnosis) - 10/20/19 Attending Physician: Ga Medley MD Referring Physician: Ga Medley MD Allergies, Adverse Reactions, Alerts Substance Reaction Severity Status NKA Active Immunizations Given and Recorded Vaccine Date Status Refusal Reason pneumococcal 23-valent vaccine1 04/28/11 Given 1Early/Late Reason: Accommodate D/C Medications docusate sodium 100 mg oral capsule 100 mg, 1, capsule, By Mouth, 2 times a day, PRN, Refills 0, Maintenance, Constipation, 10/10/19 11:34:00 EDT Start Date: 10/10/19 Status: Orderedpotassium chloride 20 mEq oral tablet, extended release 1 tablet = 20 mEq, By Mouth, 2 times a day, # 4 tablet, 0 Refills, Maintenance, 10/10/19 11:51:00 EDT, ER Tablet, [facility]/pharmacy #[id number], 159, cm, 10/10/19 7:38:00 EDT, Height, [...] Dates Health Status Clinical In formant Service Exposure to Discharge 10/20/19 COVID-19 virus Diagnosis Social History Social History Type Response Smoking Status Never (less than 100 in life time) entered on: 10/20/18 Sex
--- OUTSIDE RECORDS SUMMARY | 2021-12-22 23:38 | XMS_ITS | Continuity of Care Document ---
:1990 Author Organization [facility] Address [address] [place] [address]- Care Team Providers Name Role Phone Evgeny GOMEZ, Asma Primary Care Physician [place] [facility] [place] 03[place]16/20 [facility] [address] [place], [place] [address] Attending Physician: Sima Huertas Admitting Physician: Sima Huertas Referring Physician: AdmtrSima Allergies, Adverse Reactions, Alerts Substance Reaction Severity [...] 02/19/20 0:04:00 EST, Route to Pharmacy Electronically, [facility]/pharmacy #[id number], Partial fill upon patient request, 160, cm, 02/18/20 21:46:00 EST, Height, 86.... Start Date: 02/19/20 Status: Orderedpotassium chloride 20 mEq oral tablet, extended release 1 tablet = 20 mEq, By Mouth, 2 times a day, # 4 tablet, 0 Refills, Maintenance, 10/10/19 11:51:00 EDT, ER Tablet, [facility]/pharmacy #[id number], 159, cm, 10/10/19 7:38:00 EDT, [...] 02/19/20 0:04:00 EST, Route to Pharmacy Electronically, [facility]/pharmacy #[id number], Partial fill upon patient request, 160, cm, 02/18/20 21:46:00 E... Start Date: 02/19/20 Status: Ordered Problem List Condition Effective Dates Status Health Status Informant Kidney stones(Confirmed) Active Sebaceous Cyst(Confirmed) 04/27/11 Active Social History Social History Type Response Smoking Status Never (less than 100 in life time) entered on: 10/20/18 Sex
--- OUTSIDE RECORDS SUMMARY | 2021-12-22 23:38 | XMS_ITS | Continuity of Care Document ---
:1990 Author Organization [facility] Address [address] [place] [address]- Care Team Providers Name Role Phone Hugo Goldman MD Primary Care Physician [place] [facility] [place]19 [facility] [address] [place] [address]- [facility] Attending Physician: Sima Huertas Admitting Physician: Sima [...] Health Status Informant Sebaceous Cyst(Confirmed) 04/27/11 Active Social History Social History Type Response Smoking Status Never (less than 100 in life time) entered on: 10/20/18 Sex
--- OUTSIDE RECORDS SUMMARY | 2021-12-22 23:38 | XMS_ITS | Continuity of Care Document ---
:[address] Organization [facility] Address [address] [place] [address]- Care Team Providers Name Role Phone Not on Staff, PCP Primary Care Physician Unavailable [place] [facility] [place]/[address] [facility] [address] [place] [address]- [facility] Attending Physician: Sima Huertas Admitting Physician: Sima Huertas Referring Physician: Sima Huertas Allergies, Adverse Reactions, Alerts Substance Reaction Severity [...] Refills, Maintenance, 10/10/19 11:51:00 EDT, ER Tablet, [facility]/pharmacy #[id number], 159, cm, 10/10/19 7:38:00 EDT, Height, [...]
[2021-12-22] MEDS: Acetaminophen 325 MG TABLET 975 MG PO (23:45)
[2021-12-22] MEDS: Ondansetron ODT 4 MG TAB.RAPDIS TRANSLINGU (23:45)
[2021-12-22] MEDS: Ibuprofen 800 MG TABLET PO (23:45)
== END 2021-12-23 01:00 | disposition home or self-care (01) ==
PROVIDERS: Emergency Provider Student in an Organized Health Care Education/Training Program; PCP Internal Medicine
DX: R10.9 Unspecified abdominal pain (principal); M79.18 Myalgia, other site; Z20.822 Contact with and (suspected) exposure to COVID-19; Z79.899 Other long term (current) drug therapy; Z87.442 Personal history of urinary calculi
CPT/HCPCS: 74176; 80053; 81001; 81003; 81025; 82248; 83690; 85025; 87635; 99284

== ENCOUNTER 2022-10-06 09:48 | Outpatient (AMB) | payer OTHER, SELFPAY ==
--- NOTE | 2022-10-06 09:50 | MHC.PC.OV ---
Vital Signs 10/06/22 09:53 Height 5 ft 3 in Weight 200 lb 2 oz BMI 35.4 BP 112/76 Blood Pressure Location Lt brachial Position Sitting Pulse 82 Pulse Source Pulse Oximeter Pulse Oximetry (%) 97 Oxygen Delivery Method Room Air Intake Visit Reasons: Annual PE Allergies control pill Adverse Reaction (Intermediate, Uncoded 03/21/22 10:54) Migraine Medication List - Last Reconciled 10/06/22 by Oriana Pepper MD No Known Home Meds Tobacco use date assessed: 10/06/22 Dental Screening Dental Screen Date: 10/06/22 Did you have a dental visit in the last 12 months?: Yes Did you have a dental problem in the last 6 months where you did not have access to dental care?: No Was dental information given to patient?: No HPI Annual PE HPI Details Patient is 32-year-old female came in today for physical examination Last time seen was in January of 2020 Patient has been losing here both side zoroastrianism She says that she does have a family history of hearing loss and she is worried about that Patient has also been gaining lot of weight and would like to see a weight loss program [facility] I have ordered labs for her to be done fasting we will go from there if needed I will place a referral for her to see a neurosurgery research director for alopecia She need a referral to OBGYN History of nephrolithiasis patient was seen in emergency room in July and found to have kidney stones on left side She has seen Dr. Michael [facility] in the past, I have placed a new referral for her to be evaluated. Physical exam 1 year [facility] Medical History COVID-19 vaccine series completed Depression Headache syndrome History of kidney stones Surgical History History of lithotripsy Hx of cholecystectomy Hx of cystoscopy Family History Father No problems noted. Mother Breast cancer Maternal Grandmother No problems noted. Maternal Grandfather No problems noted. Paternal Grandfather No problems noted. Paternal Grandmother No problems noted. Maternal Aunt No problems noted. Brother No problems noted. Brother No problems noted. Brother No problems noted. Sister No problems noted. Sister No problems noted. Son No problems noted. Daughter No problems noted. Social History Household Members: Family Housing: Apartment Are you a primary career technical supervisor to a significant other at home: No Do you presently have visiting nurse or other home services: No Alcohol intake: never Patient Tobacco Use Status: Never used Tobacco e-Cigarette/Vaping Use: Never Used service: No Current occupational status: employed Cognitive needs: No Hearing needs: No Vision needs: No Questionnaire AUDIT C Alcohol Use Questionnaire (AUDIT-C) 1. How often do you have a drink containing alcohol?: Never 3. How often do you have six or more drinks on one occasion?: Never Total Score: 0 Score Reviewed/Action Taken: Yes Review of Systems Const Denies chills, Denies fever(s) and Denies headache(s) Eyes Denies blurry vision ENT Denies headache(s), Denies nasal discharge, Denies nasal obstruction, Denies odynophagia and Denies sinus pain Card Denies chest pain at rest and Denies chest pain with activity Resp Denies cough and Denies hemoptysis GI Denies diarrhea, Denies odynophagia, Denies vomiting and Denies hematemesis Reports as per HPI Musc Denies abnormal gait Skin/Breast Reports as per HPI Neuro Denies Neuro-related abnormal movements, Denies Abnormal speech present, Denies abnormal gait, Denies headache(s) and Denies Sensory deficit (Neuro) Psych Denies mood swings and Denies paranoia Endo Reports as per HPI Duane/Lymph Reports as per HPI Aller/Immun Reports as per HPI Physical exam (Primary Care) Vital Signs: Last Vital Signs Pulse 82 10/06/22 09:53 BP 112/76 10/06/22 09:53 Pulse Ox 97 10/06/22 09:53 Oxygen Delivery Method Room Air 10/06/22 09:53 BMI result Body Mass Index 35.4 Tobacco/Smoking Status: Tobacco use Status Tobacco use date assessed 10/06/22 10/06/22 09:57 Patient Tobacco Use Status Never used Tobacco 10/06/22 09:51 e-Cigarette/Vaping Use Never Used 10/06/22 09:57 Const General: cooperative, comfortable and no acute distress Orientation/consciousness: patient oriented x3 HENMT Head: Yes normocephalic and Yes atraumatic Eyes General: appearance normal, both eyes and all related structures Pupils: Equal, round and reactive pupils present EOM: EOMs intact bilaterally Neck Neck: Yes supple and No lymphadenopathy Thyroid: Thyroid normal Lymphatic: no lymphadenopathy noted Resp Effort & Inspection: normal respiratory effort and able to speak in complete sentences Auscultation: clear to auscultation bilaterally Cardio Heart sounds: S1 normal heart sound present and S2 normal heart sound present GI Palpation (GI): Soft to palpation and nontender Auscultation: normal bowel sounds General: Yes no CVA tenderness Back/Spine/Pelvis Back: no CVA tenderness Skin General skin exam: elasticity normal and turgor normal Neuro General: patient oriented x3 and gait normal Cranial nerves: Yes Equal, round and reactive pupils present Speech: No Abnormal speech present Sensory Exam: No Sensory deficit (Neuro) Coordination: tandem gait normal and Romberg test negative Extrem General: Yes normal exam except as noted and No edema Assessment and Plan Assessment & Plan (1) Encounter for general adult medical examination with abnormal findings: Code(s): Z00.01 - Encounter for general adult medical examination with abnormal findings (2) Kidney stone on left side: Code(s): N20.0 - Calculus of kidney (3) Obesity due to excess calories: Code(s): E66.09 - Other obesity due to excess calories (4) Alopecia: Code(s): L65.9 - Nonscarring hair loss, unspecified Plan Patient is 32-year-old female came in today for physical examination Last time seen was in January of 2020 Patient has been losing here both side zoroastrianism She says that she does have a family history of hearing loss and she is worried about that Patient has also been gaining lot of weight and would like to see a weight loss program [facility] I have ordered labs for her to be done fasting we will go from there if needed I will place a referral for her to see a neurosurgery research director for alopecia She need a referral to OBGYN History of nephrolithiasis patient was seen in emergency room in July and found to have kidney stones on left side She has seen Dr. Michael [facility] in the past, I have placed a new referral for her to be evaluated. Physical exam 1 year Orders: Orders Vitamin B12 Today E66.09 - Other obesity due to excess calories, L65.9 - Nonscarring hair loss, unspecified, N20.0 - Calculus of kidney, Z00.01 - Encounter for general adult medical examination with abnormal findings Comprehensive Pella. Panel Fast Today E66.09 - Other obesity due to excess calories, L65.9 - Nonscarring hair loss, unspecified, N20.0 - Calculus of kidney, Z00.01 - Encounter for general adult medical examination with abnormal findings Ferritin Today E66.09 - Other obesity due to excess calories, L65.9 - Nonscarring hair loss, unspecified, N20.0 - Calculus of kidney, Z00.01 - Encounter for general adult medical examination with abnormal findings Lipid Panel Today E66.09 - Other obesity due to excess calories, L65.9 - Nonscarring hair loss, unspecified, N20.0 - Calculus of kidney, Z00.01 - Encounter for general adult medical examination with abnormal findings Testosterone, Total Today E66.09 - Other obesity due to excess calories, L65.9 - Nonscarring hair loss, unspecified, N20.0 - Calculus of kidney, Z00.01 - Encounter for general adult medical examination with abnormal findings TSH reflex Free T4 Today E66.09 - Other obesity due to excess calories, L65.9 - Nonscarring hair loss, unspecified, N20.0 - Calculus of kidney, Z00.01 - Encounter for general adult medical examination with abnormal findings Vitamin D 25-OH (D2 and D3) Today E66.09 - Other obesity due to excess calories, L65.9 - Nonscarring hair loss, unspecified, N20.0 - Calculus of kidney, Z00.01 - Encounter for general adult medical examination with abnormal findings Complete Blood Count Auto Diff Today E66.09 - Other obesity due to excess calories, L65.9 - Nonscarring hair loss, unspecified, N20.0 - Calculus of kidney, Z00.01 - Encounter for general adult medical examination with abnormal findings Referrals Urology Referral N20.0 - Calculus of kidney Bariatric Surgery Referral E66.09 - Other obesity due to excess calories [employer]ION MANAGER Referral Z01.419 - Encounter for gynecological examination (general) (routine) without abnormal findings Coding Level of Care Code Est Pt Prev Care 18-39y(04305) Diagnoses Encounter for general adult medical examination with abnormal findings Z00.01 Kidney stone on left side N20.0 Obesity due to excess calories E66.09 Alopecia L65.9
[2022-10-06 09:53] VITALS: BP 112/76; PULSE 82; O2SAT 97; BMI 35.4
== END 2022-10-06 11:32 | disposition home or self-care (01) ==
PROVIDERS: PCP Internal Medicine; Visit Provider Internal Medicine
DX: Z00.01 Encounter for general adult medical examination with abnormal findings (principal); N20.0 Calculus of kidney; E66.09 Other obesity due to excess calories; Z68.35 Body mass index [BMI] 35.0-35.9, adult; L65.9 Nonscarring hair loss, unspecified
CPT/HCPCS: 99395

== ENCOUNTER 2023-02-13 13:24 | Outpatient (AMB) | payer OTHER, SELFPAY ==
[2023-02-13 13:27] VITALS: BP 120/94; PULSE 88; O2SAT 100; BMI 35.2
--- NOTE | 2023-02-13 13:27 | A.OFFPC_ITS ---
Vital Signs 3 02/13/23 13:27 Height 5 ft 3 in Weight 199 lb BMI 35.2 BP 120/94 H Blood Pressure Location Rt brachial Position Sitting Pulse 88 Pulse Source Pulse Oximeter Pulse Oximetry (%) 100 Oxygen Delivery Method Room Air Intake Visit Reasons: Lump on Right Breast Allergies control pill Adverse Reaction (Intermediate, Uncoded 03/21/22 10:54) Migraine Medication List - Last Reconciled 02/13/23 by Oriana Pepper MD No Known Home Meds Tobacco use date assessed: 02/13/23 Dental Screening Dental Screen Date: 02/13/23 Did you have a dental visit in the last 12 months?: Yes Did you have a dental problem in the last 6 months where you did not have access to dental care?: No Was dental information given to patient?: Patient has dentist HPI Lump on Right Breast 2 HPI0 Details Patient is a 32-year-old female came in today to be evaluated for breast right side Patient accidentally belted There is no pain no relationship with her menstrual cycle. On examination patient have fibronodular breast, with firm nodular lump to block right side I have ordered a diagnostic mammogram and ultrasound to further evaluate PFSH Medical History COVID-19 vaccine series completed History of kidney stones Depression Headache syndrome Surgical History Hx of cystoscopy Hx of cholecystectomy History of lithotripsy Family History Father No problems noted. Mother Breast cancer Maternal Grandmother No problems noted. Maternal Grandfather No problems noted. Paternal Grandfather No problems noted. Paternal Grandmother No problems noted. Maternal Aunt No problems noted. Brother No problems noted. Brother No problems noted. Brother No problems noted. Sister No problems noted. Sister No problems noted. Son No problems noted. Daughter No problems noted. Household Members: Family Housing: Apartment Are you a primary congregational care pastor to a significant other at home: No Do you presently have visiting nurse or other home services: No Alcohol intake: never Patient Tobacco Use Status: Never used Tobacco e-Cigarette/Vaping Use: Never Used service: No Current occupational status: employed Cognitive needs: No Hearing needs: No Vision needs: No Questionnaire AUDIT C Alcohol Use Questionnaire (AUDIT-C) 1. How often do you have a drink containing alcohol?: Never 3. How often do you have six or more drinks on one occasion?: Never Total Score: 0 Score Reviewed/Action Taken: Yes Review of Systems Const Denies chills and Denies fever(s) ENT Denies epistaxis and Denies nasal discharge Card Denies chest pain Resp Denies chest congestion, Denies cough and Denies hemoptysis GI Denies diarrhea and Denies nausea Skin/Breast Denies rash Neuro Reports no additional complaints Psych Reports no additional complaints Endo Reports no additional complaints Physical exam (Primary Care) Vital Signs: Last Vital Signs Pulse 88 02/13/23 13:27 BP 120/94 H 02/13/23 13:27 Pulse Ox 100 02/13/23 13:27 Oxygen Delivery Method Room Air 02/13/23 13:27 BMI result Body Mass Index 35.2 Tobacco/Smoking Status: Tobacco use Status Tobacco use date assessed 02/13/23 02/13/23 13:29 Patient Tobacco Use Status Never used Tobacco 02/13/23 13:29 e-Cigarette/Vaping Use Never Used 02/13/23 13:29 Const General: cooperative, comfortable and no acute distress Orientation/consciousness: patient oriented x3 HENMT Head: Yes normocephalic Eyes General: appearance normal, both eyes and all related structures Neck Neck: Yes supple Chest Chest/axillae images: 2 1. Firm nodular lump, size of almond Resp Effort & Inspection: normal respiratory effort, no cough and no stridor Skin General skin exam: turgor normal Neuro General: patient oriented x3, tone normal and moves all extremities Extrem Right lower extremity: no edema Left lower extremity: no edema Assessment and Plan Assessment & Plan (1) Breast lump on right side at 2 o'clock position: Code(s): N63.12 - Unspecified lump in the right breast, upper inner quadrant Plan Patient is a 32-year-old female came in today to be evaluated for breast right side Patient accidentally belted There is no pain no relationship with her menstrual cycle. On examination patient have fibronodular breast, with firm nodular lump to block right side I have ordered a diagnostic mammogram and ultrasound to further evaluate Orders: Orders 2 US breast RT complete Today N63.12 - Unspecified lump in the right breast, upper inner quadrant MM tomosynthesis diagnostic RT Today N63.12 - Unspecified lump in the right breast, upper inner quadrant Coding Level of Care Code Est Pt Level 3 (85173) Diagnoses Breast lump on right side at 2 o'clock position N63.12
== END 2023-02-13 14:09 | disposition home or self-care (01) ==
PROVIDERS: PCP Internal Medicine; Visit Provider Internal Medicine
DX: N63.12 Unspecified lump in the right breast, upper inner quadrant (principal)
CPT/HCPCS: 99213

== ENCOUNTER → 2023-02-27 09:00 | Outpatient (BNV) | payer OTHER, SELFPAY | PROVIDERS: PCP Internal Medicine; Visit Provider Radiology Diagnostic Radiology | DX: N63.12 Unspecified lump in the right breast, upper inner quadrant (principal); R92.323 Mammographic fibroglandular density, bilateral breasts | CPT/HCPCS: 76642; 77062; 77066 ==

== ENCOUNTER 2023-02-27 09:03 | Outpatient (REF) | payer OTHER, SELFPAY ==
--- NOTE | ~2023-02-27 | MM_ITS ---
EXAMINATION: MM DIAGNOSTIC DIGITAL BREAST TOMOSYNTHESIS, BILATERAL US BREAST LIMITED, RIGHT MAMMOGRAPHY: CLINICAL INFORMATION: Patient presents for further evaluation of a palpable lump in the upper inner quadrant of the right breast. The patient gives a significant family history of her mother having been diagnosed with breast cancer at age 32. The patient also reports that her maternal grandmother had breast cancer. COMPARISON: Mammography: This is a baseline study. TECHNIQUE: Digital breast tomosynthesis is performed in both the craniocaudal and mediolateral oblique views along with computer-aided detection (CAD). Synthesized 2D images are generated from the tomosynthesis. FINDINGS: There are scattered areas of fibroglandular density (ACR BI-RADS breast composition Category b). There are no significant masses, abnormal calcifications, or other abnormalities. There are no mammographic abnormalities in the area of the patient's palpable concern. ULTRASOUND: CLINICAL INFORMATION: Palpable lump of the upper inner quadrant of the right breast. COMPARISON: None TECHNIQUE: Complete bilateral sonographic imaging of both breasts was performed using a high frequency linear transducer. Selected archived documentation. FINDINGS: RIGHT BREAST: There are no abnormalities of the right breast or right axilla. LEFT BREAST: There are no abnormalities of the left breast or left axilla. MM/MM tomosynthesis diagnostic BI IMPRESSION: No mammographic or sonographic evidence of malignancy. Contrast-enhanced breast MRI is advised in this patient with a strong family history of breast cancer and a palpable lump with no focal sonographic or mammographic correlate. In addition, formal breast cancer risk assessment and formal breast cancer risk assessment with the offer genetic testing is advised. Clinical follow-up of the patient's right breast palpable lump is also advised. OVERALL ASSESSMENT: Mammography: BI-RADS 1 - Negative Ultrasound: BI-RADS 1 - Negative RECOMMENDATION: 1 year F/U Results were provided to the patient at time of visit by the technologist. This patient's information was entered into a reminder system with a target due date for their next mammogram.
== END 2023-02-27 09:04 | disposition home or self-care (01) ==
LOC: HO.MAMMO 09:03
PROVIDERS: PCP Internal Medicine; Visit Provider Internal Medicine
DX: N63.12 Unspecified lump in the right breast, upper inner quadrant (principal)
CPT/HCPCS: 76642; 77062; 77066

== ENCOUNTER 2023-10-10 13:25 | Outpatient (AMB) | payer OTHER, SELFPAY ==
[2023-10-10 13:26] VITALS: BP 106/80; PULSE 82; BMI 33.3
--- NOTE | 2023-10-10 13:26 | A.OFFPC_ITS ---
Vital Signs 10/10/23 13:26 Height 5 ft 3 in Weight 188 lb BMI 33.3 BP 106/80 Blood Pressure Location Rt brachial Position Sitting Pulse 82 Pulse Source Pulse Oximeter Intake Visit Reasons: Annual PE Allergies control pill Adverse Reaction (Intermediate, Uncoded 10/10/23 13:28) Migraine Medication List - Last Reconciled 10/10/23 by Oriana Pepper MD No Known Home Meds Tobacco use date assessed: 10/10/23 Dental Screening Dental Screen Date: 10/10/23 Did you have a dental visit in the last 12 months?: Yes Did you have a dental problem in the last 6 months where you did not have access to dental care?: No Was dental information given to patient?: Patient has dentist HPI Annual PE HPI Details Patient is a 33-year-old female came in today for physical examination Patient says that she would like to take medication to lose weight She has been trying to work out and diet without any success She says that she knows what to eat and what not to eat and also know how to count calories We talked about side effects of phentermine Including chest pain palpitations I am ordering baseline labs to be done fasting We will book appointment in 1 week to go over the lab reports and start the medication Patient is aware that the goal is to lose at least 4-5 lb every month And she will need to come into the office so we can we her and monitor side effects She is also due for OBGYN visit, referral placed [facility] Medical History COVID-19 vaccine series completed History of kidney stones Depression Headache syndrome Surgical History Hx of cystoscopy Hx of cholecystectomy History of lithotripsy Family History Father No problems noted. Mother Breast cancer Maternal Grandmother No problems noted. Maternal Grandfather No problems noted. Paternal Grandfather No problems noted. Paternal Grandmother No problems noted. Maternal Aunt No problems noted. Brother No problems noted. Brother No problems noted. Brother No problems noted. Sister No problems noted. Sister No problems noted. Son No problems noted. Daughter No problems noted. Social History Household Members: Family Housing: Apartment Are you a primary intensive care medicine specialist to a significant other at home: No Do you presently have visiting nurse or other home services: No Alcohol intake: never Patient Tobacco Use Status: Never used Tobacco e-Cigarette/Vaping Use: Never Used service: No Current occupational status: employed Cognitive needs: No Hearing needs: No Vision needs: No Questionnaire PHQ-9 Over the last 2 weeks, how often have you been bothered by any of the following problems? 1. Little interest or pleasure in doing things: not at all 2. Feeling down, depressed, or hopeless: not at all 3. Trouble falling or staying asleep, or sleeping too much: not at all 4. Feeling tired or having little energy: not at all 5. Poor appetite or overeating: not at all 6. Feeling bad about yourself - or that you are a failure or have let yourself or your family down: not at all 7. Trouble concentrating on things, such as reading the newspaper or watching television: not at all 8. Moving or speaking so slowly that other people could have noticed. Or the opposite - being so fidgety or restless that you have been moving around a lot more than usual: not at all 9. Thoughts that you would be better off or of hurting yourself in some way: not at all Total score: 0 Depression Screening Interpretation: Negative Depression Screening Done: Yes 76394 - PHQ-9 Billing: Yes Source: Developed by Drs. Yfn Hare, Alysha Quintanilla, Raghu Jalloh and colleagues, with an educational bart from [employer]. Thrive Questionnaire Date Thrive assessed: 10/10/23 I am a: Patient What is your living situation today?: I have a steady place to live Within the past 12 months, did the food you bought not last and you didn't have the money to get more?: Often true Within the past 12 months, did you worry whether your food would run out before you got money to buy more?: Often true Do you have trouble paying for medicines?: No Do you have trouble getting transportation to medical appointments?: No Do you have trouble paying your heating and electricity bill?: No Do you have trouble taking care of your child, family member or friend?: I choose not to answer this question Do you have trouble with day-to-day activities such as bathing, preparing meals, shopping, managing finances, etc.?: I choose not to answer this question Are you currently unemployed and looking for a job?: I choose not to answer this question Are you interested in more education?: I choose not to answer this question Please select the resources that you would like help with: Housing/Retirement Currently or been in a relationship where the following occur: I choose not to answer THRIVE Score: 2 AUDIT C Alcohol Use Questionnaire (AUDIT-C) 1. How often do you have a drink containing alcohol?: Never 3. How often do you have six or more drinks on one occasion?: Never Total Score: 0 COLT-7 AMB Questionnaire COLT-7 Date COLT - 7 assessed: 10/10/23 Feeling nervous, anxious, or on edge: 0 = Not at all Not being able to stop or control worryin = Not at all Worrying too much about different things: 0 = Not at all Trouble relaxin = Not at all Being so restless that it is hard to sit still: 0 = Not at all Becoming easily annoyed or irritable: 0 = Not at all Feeling afraid as if something awful might happen: 0 = Not at all Total COLT-7 score (0-4 normal; 5-9 mild; 10-14 moderate; 15-21 severe): 0 Source: Developed by Drs. Yfn Hare, Alysha Quintanilla, Raghu Jalloh and colleagues, with an educational bart from [employer]. Review of Systems Const Denies chills, Denies fever(s) and Denies headache(s) Eyes Denies blurry vision ENT Denies headache(s), Denies nasal discharge, Denies nasal obstruction, Denies odynophagia and Denies sinus pain Card Denies chest pain at rest and Denies chest pain with activity Resp Denies cough and Denies hemoptysis GI Denies diarrhea, Denies odynophagia, Denies vomiting and Denies hematemesis Reports as per HPI Musc Denies abnormal gait Skin/Breast Reports as per HPI Neuro Denies Neuro-related abnormal movements, Denies Abnormal speech present, Denies abnormal gait, Denies headache(s) and Denies Sensory deficit (Neuro) Psych Denies mood swings and Denies paranoia Endo Reports as per HPI [place]/Lymph Reports as per HPI Aller/Immun Reports as per HPI Physical exam (Primary Care) Vital Signs: Last Vital Signs Pulse 82 10/10/23 13:26 BP 106/80 10/10/23 13:26 BMI result Body Mass Index 33.3 Tobacco/Smoking Status: Tobacco use Status Tobacco use date assessed 10/10/23 10/10/23 13:31 Patient Tobacco Use Status Never used Tobacco 10/10/23 13:31 e-Cigarette/Vaping Use Never Used 10/10/23 13:31 PHQ-9: PHQ-9 Score PHQ-9: Total score 0 10/10/23 13:31 Depression Screening Interpretation: Negative Thrive Assessment: Date of Thrive Assessment Date Thrive assessed 10/10/23 10/10/23 13:31 Currently or been in a relationship where the following occur: I choose not to answer Const General: cooperative, comfortable and no acute distress Orientation/consciousness: patient oriented x3 HENMT Head: Yes normocephalic and Yes atraumatic Eyes General: appearance normal, both eyes and all related structures Pupils: Equal, round and reactive pupils present EOM: EOMs intact bilaterally Neck Neck: Yes supple and No lymphadenopathy Thyroid: Thyroid normal Lymphatic: no lymphadenopathy noted Resp Effort & Inspection: normal respiratory effort and able to speak in complete sentences Auscultation: clear to auscultation bilaterally Cardio Heart sounds: S1 normal heart sound present and S2 normal heart sound present GI Palpation (GI): Soft to palpation and nontender Auscultation: normal bowel sounds General: Yes no CVA tenderness Back/Spine/Pelvis Back: no CVA tenderness Skin General skin exam: elasticity normal and turgor normal Neuro General: patient oriented x3 and gait normal Cranial nerves: Yes Equal, round and reactive pupils present Speech: No Abnormal speech present Sensory Exam: No Sensory deficit (Neuro) Coordination: tandem gait normal and Romberg test negative Extrem General: Yes normal exam except as noted and No edema Assessment and Plan Assessment & Plan (1) Encounter for general adult medical examination with abnormal findings: Code(s): Z00.01 - Encounter for general adult medical examination with abnormal findings (2) Obesity due to excess calories: Code(s): E66.09 - Other obesity due to excess calories Qualifiers: Obesity classification: adult class 1 (BMI 30 - 34.9) Serious obesity comorbidity presence: without serious comorbidity Body mass index: BMI 33.0- 33.9 Qualified Code(s): E66.09 - Other obesity due to excess calories; Z68.33 - Body mass index [BMI] 33.0-33.9, adult (3) Headache syndrome: Comment: migraines Code(s): G44.89 - Other headache syndrome Plan Patient is a 33-year-old female came in today for physical examination Patient says that she would like to take medication to lose weight She has been trying to work out and diet without any success She says that she knows what to eat and what not to eat and also know how to count calories We talked about side effects of phentermine Including chest pain palpitations I am ordering baseline labs to be done fasting We will book appointment in 1 week to go over the lab reports and start the medication Patient is aware that the goal is to lose at least 4-5 lb every month And she will need to come into the office so we can we her and monitor side effects Her access started again, she did well with amitriptyline 10 mg , which I have recent with the patient She is also due for OBGYN visit, referral placed Orders: Orders Complete Blood Count Auto Diff Today E66.09 - Other obesity due to excess calories, G44.89 - Other headache syndrome, Z00.01 - Encounter for general adult medical examination with abnormal findings Comprehensive [place]. Panel Fast Today E66.09 - Other obesity due to excess calories, G44.89 - Other headache syndrome, Z00.01 - Encounter for general adult medical examination with abnormal findings Lipid Panel Today E66.09 - Other obesity due to excess calories, G44.89 - Other headache syndrome, Z00.01 - Encounter for general adult medical examination with abnormal findings TSH reflex Free T4 Today E66.09 - Other obesity due to excess calories, G44.89 - Other headache syndrome, Z00.01 - Encounter for general adult medical examination with abnormal findings Vitamin D 25-OH (D2 and D3) Today E66.09 - Other obesity due to excess calories, G44.89 - Other headache syndrome, Z00.01 - Encounter for general adult medical examination with abnormal findings Referrals [facility] Referral Z01.419 - Encounter for gynecological examination (general) (routine) without abnormal findings Medications: New amitriptyline 10 mg PO BEDTIME 90 tabs 0RF Coding Level of Care Code Est Pt Level 3 (53912) Est Pt Prev Care 18-39y(85746) Diagnoses Encounter for general adult medical examination with abnormal findings Z00.01 Class 1 obesity due to excess calories without serious comorbidity with body mass index (BMI) of 33.0 to 33.9 in adult E66.09; Z68.33 Obesity classification: adult class 1 (BMI 30 - 34.9) Serious obesity comorbidity presence: without serious comorbidity Body mass index: BMI 33.0-33.9 Headache syndrome G44.89
== END 2023-10-10 13:49 | disposition home or self-care (01) ==
PROVIDERS: PCP Internal Medicine; Visit Provider Internal Medicine
DX: Z00.01 Encounter for general adult medical examination with abnormal findings (principal); E66.09 Other obesity due to excess calories; Z68.33 Body mass index [BMI] 33.0-33.9, adult; G44.89 Other headache syndrome
CPT/HCPCS: 99213; 99395

== ENCOUNTER 2023-10-11 11:55 | Outpatient (REF) | payer OTHER, SELFPAY ==
[2023-10-11 13:05] LABS: MANUAL DIFF FLAG NO
[2023-10-11 13:10] LABS: Basophils Percent Auto 0.4 % (0-2); Eosinophils Absolute Auto 0.1 X10*3/uL (0.0-0.4); Eosinophils Percent Auto 1.6 % (0-4); Hematocrit 39.4 % (37.0-47.0); Hemoglobin 13.6 g/dl (12.0-16.0); Imm Gran Abs Auto 0.02 X10*3/uL (0.00-0.03); Imm Gran Pct Auto 0.3 % (0.0-0.4); Lymphocytes Absolute Auto 2.5 X10*3/uL (1.2-4.9); Mean Corpuscular HGB Conc 34.5 g/dl (31.0-35.0); Mean Corpuscular Hemoglobin 30.8 pg (27.0-33.0); Mean Corpuscular Volume 89.3 fL (80.0-98.0); Mean Platelet Volume 9.5 fL (9.4-12.3); Monocytes Absolute Auto 0.4 X10*3/uL (0.1-1.2); Monocytes Percent Auto 5.4 % (2-11); Neutrophils Percent Auto 57.3 % (45-73); Platelet Count 343 X10*3/uL (160-400); Red Blood Count 4.41 X10*6/uL (4.20-5.50); Red Cell Distribution Width 11.8 % (11.0-16.0)
[2023-10-11 13:37] LABS: Alanine Aminotransferase 38 U/L (0-31); Albumin Level 3.9 g/dL (3.5-5.0); Alkaline Phosphatase 67 U/L (39-117); Anion Gap 14 (12-20); Aspartate Amino Transferase 29 U/L (5-31); Bilirubin Total 0.8 mg/dL (0.0-1.0); Blood Urea Nitrogen 6 mg/dL (9-16); Calcium 8.9 mg/dL (8.4-10.2); Carbon Dioxide 22 mmol/L (22-29); Chloride 108 mmol/L (96-108); Cholesterol 164 mg/dL (<200); Estimated Glomerular Filt Rate > 60; Glucose Fasting 83 mg/dL (60-99); HDL Cholesterol 48 mg/dL (>40); LDL Cholesterol Calculated 98 mg/dL (<100); Potassium 3.7 mmol/L (3.3-5.1); Sodium 140 mmol/L (135-145); Total Protein 7.1 g/dL (6.5-8.0); Triglycerides 91 mg/dL (<150)
[2023-10-11 13:57] LABS: TSH reflex Free T4 1.28 uIU/mL (0.32-4.0)
[2023-10-15 15:28] LABS: Vitamin D 25-OH, D2 <4 ng/mL; Vitamin D 25-OH, D3 17 ng/mL; Vitamin D 25-OH, Total 17 ng/mL (30-100)
== END 2023-10-11 11:56 | disposition home or self-care (01) ==
LOC: HO.HMGCLDS 11:55
PROVIDERS: PCP Internal Medicine; Visit Provider Internal Medicine
DX: Z00.01 Encounter for general adult medical examination with abnormal findings (principal); E66.09 Other obesity due to excess calories; G44.89 Other headache syndrome
CPT/HCPCS: 36415; 80053; 80061; 82306; 84443; 85025

== ENCOUNTER 2023-10-18 07:37 | Outpatient (AMB) | payer OTHER, SELFPAY ==
--- NOTE | 2023-10-18 08:40 | MHC.PC.OV ---
Intake Visit Reasons: 1 week follow up Allergies control pill Adverse Reaction (Intermediate, Uncoded 10/10/23 13:28) Migraine Medication List - Last Reconciled 10/18/23 by Oriana Pepper MD amitriptyline 10 mg PO BEDTIME Tobacco use date assessed: 10/10/23 Dental Screening Dental Screen Date: 10/10/23 HPI 1 week follow up HPI Details Patient was seen in [place] October 10 2023, BMI is 33.3 Patient verbalized to starting weight loss medication Phentermine side effects were reviewed We were waiting for lab reports Labs are stable 1 liver enzyme is slightly off but stable from before Vitamin-D level is low, I have sent supplement for her patient was instructed to start taking 1 every day I have sent phentermine 15 mg patient was instructed to review side effect profile provided by the pharmacy before starting If insurance covered it she was start taking it and have a follow-up in 1 month. [facility] Medical History COVID-19 vaccine series completed History of kidney stones Depression Headache syndrome Surgical History Hx of cystoscopy Hx of cholecystectomy History of lithotripsy Family History Father No problems noted. Mother Breast cancer Maternal Grandmother No problems noted. Maternal Grandfather No problems noted. Paternal Grandfather No problems noted. Paternal Grandmother No problems noted. Maternal Aunt No problems noted. Brother No problems noted. Brother No problems noted. Brother No problems noted. Sister No problems noted. Sister No problems noted. Son No problems noted. Daughter No problems noted. Social History Household Members: Family Housing: Apartment Are you a primary livestock caretaker to a significant other at home: No Do you presently have visiting nurse or other home services: No Alcohol intake: never Patient Tobacco Use Status: Never used Tobacco e-Cigarette/Vaping Use: Never Used service: No Current occupational status: employed Cognitive needs: No Hearing needs: No Vision needs: No Questionnaire Thrive Questionnaire Date Thrive assessed: 10/10/23 COLT-7 AMB Questionnaire COLT-7 Date COLT - 7 assessed: 10/10/23 Source: Developed by Drs. Yfn Hare, Alysha Quintanilla, Raghu Jalloh and colleagues, with an educational bart from [employer]. Review of Systems Const Denies chills and Denies fever(s) ENT Denies epistaxis and Denies nasal discharge Card Denies chest pain Resp Denies chest congestion, Denies cough and Denies hemoptysis GI Denies diarrhea and Denies nausea Skin/Breast Denies rash Neuro Reports no additional complaints Psych Reports no additional complaints Endo Reports no additional complaints Physical exam (Primary Care) Tobacco/Smoking Status: Tobacco use Status Tobacco use date assessed 10/10/23 10/18/23 08:42 Patient Tobacco Use Status Never used Tobacco 10/18/23 08:42 e-Cigarette/Vaping Use Never Used 10/18/23 08:42 Thrive Assessment: Date of Thrive Assessment Date Thrive assessed 10/10/23 10/18/23 08:42 Telehealth Telehealth Telehealth Platform: [employer] Location of provider rendering services: practice address Location of patient: address on file Patient Identification confirmed using: Name, : Yes Telehealth method: voice only Patient verbally consented to treatment: Yes Patient verbally consented to billing insurance company: Yes Patient informed of any privacy concerns related to visit: Yes Assessment and Plan Assessment & Plan (1) Obesity due to excess calories: Code(s): E66.09 - Other obesity due to excess calories Qualifiers: Body mass index: BMI 33.0-33.9 Obesity classification: adult class 1 (BMI 30 - 34.9) Serious obesity comorbidity presence: without serious comorbidity Qualified Code(s): E66.09 - Other obesity due to excess calories; Z68.33 - Body mass index [BMI] 33.0-33.9, adult (2) Vitamin D deficiency: Code(s): E55.9 - Vitamin D deficiency, unspecified Plan Patient was seen in [place] October 10 2023, BMI is 33.3 Patient verbalized to starting weight loss medication Phentermine side effects were reviewed We were waiting for lab reports Labs are stable 1 liver enzyme is slightly off but stable from before Vitamin-D level is low, I have sent supplement for her patient was instructed to start taking 1 every day I have sent phentermine 15 mg patient was instructed to review side effect profile provided by the pharmacy before starting If insurance covered it she was start taking it and have a follow-up in 1 month. 13 minutes spent in care of this patient Medications: New cholecalciferol (vitamin D3) 25 mcg PO DAILY 90 caps 1RF 90 days phentermine must administer 2 hours after breakfast 15 mg PO DAILY 30 caps 0RF 30 days Coding Level of Care Code Tele Est Pt Level 3 (32442) Diagnoses Class 1 obesity due to excess calories without serious comorbidity with body mass index (BMI) of 33.0 to 33.9 in adult E66.09; Z68.33 Body mass index: BMI 33.0-33.9 Obesity classification: adult class 1 (BMI 30 - 34.9) Serious obesity comorbidity presence: without serious comorbidity Vitamin D deficiency E55.9
== END 2023-10-18 08:48 | disposition home or self-care (01) ==
LOC: HO.HMGC 07:37
PROVIDERS: PCP Internal Medicine; Visit Provider Internal Medicine
DX: E66.09 Other obesity due to excess calories (principal); Z68.33 Body mass index [BMI] 33.0-33.9, adult; E55.9 Vitamin D deficiency, unspecified
CPT/HCPCS: 99213

== ENCOUNTER 2024-09-02 08:54 | Outpatient (AMB) | payer OTHER, SELFPAY ==
--- NOTE | 2024-09-02 08:56 | A.OFFPC_ITS ---
Vital Signs 09/02/24 08:57 Height 5 ft 3 in Weight 192 lb 8 oz BMI 34.1 BP 138/96 H Blood Pressure Location Lt brachial Position Sitting Respiration 20 Pulse 65 Pulse Source Pulse Oximeter Temp 98.1 F Temp Source Oral Pulse Oximetry (%) 97 Oxygen Delivery Method Room Air Intake Visit Reasons: Referral~ needs to update PCP with insurance Allergies control pill Adverse Reaction (Intermediate, Uncoded 09/02/24 09:00) Migraine Medication List - Last Reconciled 09/02/24 by Oriana Pepper MD amitriptyline 10 mg PO BEDTIME cholecalciferol (vitamin D3) 25 mcg PO DAILY 90 days Tobacco use date assessed: 09/02/24 Dental Screening Dental Screen Date: 09/02/24 Did you have a dental visit in the last 12 months?: Yes Did you have a dental problem in the last 6 months where you did not have access to dental care?: No Was dental information given to patient?: Patient has dentist HPI Referral~ needs to update PCP with insurance HPI Details History - The patient is a 33-year-old female pr esenting with concerns regarding weight management and migraine management. - The patient reports a BMI of 34.1 and weight fluctuation between 92 to 96 kg, with an increase from 188 lbs as of September last year. The persistent weight gain is causing emotional distress, anxiety, and exacerbation of depression. - The patient attempted a prescribed ora l medication for weight management; however, it was not covered by insurance, Phentermine - Current symptoms include significant a nxiety and depressive symptoms exacerbated by weight issues. - The patient also reports chronic migra donnell, with increased prevalence due to sunlight exposure during the summer. Amitriptyline 10 mg has been used previously, providing partial relief at night. - The patient experiences frequent migra donnell in bright, keri conditions owing to bedroom environmental factors. Medical History: - Anxiety - Depression - Migraine Social History: - Patient has knowledge of dietary needs related to kidney stones. - The patient has expressed distress rel ated to current weight and its impact on mental health. Problem List - Obesity - Anxiety - Depression - Migraine Patient Instructions - Start the new prescribed medication fo r weight loss: combination of naltrexone and bupropion. Begin with one dose in the morning and increase to two doses a day after confirming tolerability. - Consider a dietary consultation; laine stewart will call to set up this appointment. - Set up a patient portal account with e mail to facilitate communication about insurance coverage and medications. - Observe if amitriptyline at an increas ed dose (25 mg) helps with migraine and report any issues or side effects through the patient portal. - Check if sumatriptan is covered by ins urance; use sumatriptan as soon as migraine symptoms present, along with naproxen. Review of Systems - General: No fever no chills - Neurological: no dizziness - Ear nose throat: No sore throat no hearing difficulty no ear pain - Cardiovascular: No syncope, no chest pain, no palpitations - Gastrointestinal: No nausea vomiting or diarrhea - Endocrine: No polyuria polydipsia no heat intolerance - Genitourinary: No dysuria , no blood in urine Physical Exam General: No acute distress HEENT: No acute findings Neck: Supple Respiratory system: Able to talk in full sentences, no audible wheeze Cardiovascular: S1-S2 regular in rate and rhythm, no palpitations, no chest pain Gastrointestinal: No pain Extremities: No new findings MANAGER SUPPLY: Alert awake oriented x3 motor sensory intact Skin: Normal turgor PFSH Medical History COVID-19 vaccine series completed History of kidney stones Depression Headache syndrome Surgical History Hx of cystoscopy Hx of cholecystectomy History of lithotripsy Family History Father No problems noted. Mother Breast cancer Maternal Grandmother No problems noted. Maternal Grandfather No problems noted. Paternal Grandfather No problems noted. Paternal Grandmother No problems noted. Maternal Aunt No problems noted. Brother No problems noted. Brother No problems noted. Brother No problems noted. Sister No problems noted. Sister No problems noted. Son No problems noted. Daughter No problems noted. Social History Household Members: Family Housing: Apartment Are you a primary caregivers non medical to a significant other at home: No Do you presently have visiting nurse or other home services: No Alcohol intake: never Patient Tobacco Use Status: Never used Tobacco e-Cigarette/Vaping Use: Never Used service: No Current occupational status: employed Cognitive needs: No Hearing needs: No Vision needs: No Questionnaire PHQ-9 Over the last 2 weeks, how often have you been bothered by any of the following problems? 1. Little interest or pleasure in doing things: not at all 2. Feeling down, depressed, or hopeless: not at all 3. Trouble falling or staying asleep, or sleeping too much: not at all 4. Feeling tired or having little energy: not at all 5. Poor appetite or overeating: not at all 6. Feeling bad about yourself - or that you are a failure or have let yourself or your family down: not at all 7. Trouble concentrating on things, such as reading the newspaper or watching television: not at all 8. Moving or speaking so slowly that other people could have noticed. Or the opposite - being so fidgety or restless that you have been moving around a lot more than usual: not at all 9. Thoughts that you would be better off or of hurting yourself in some way: not at all Total score: 0 Depression Screening Interpretation: Negative Depression Screening Done: Yes 48842 - PHQ-9 Billing: Yes Source: Developed by Drs. Yfn Hare, Alysha Quintanilla, Raghu Jalloh and colleagues, with an educational bart from [email or web address]. Thrive Questionnaire Date Thrive assessed: 09/02/24 I am a: Patient What is your living situation today?: I have a steady place to live Within the past 12 months, did the food you bought not last and you didn't have the money to get more?: I choose not to answer this question Within the past 12 months, did you worry whether your food would run out before you got money to buy more?: I choose not to answer this question Do you have trouble paying for medicines?: I choose not to answer this question Do you have trouble getting transportation to medical appointments?: I choose not to answer this question Do you have trouble paying your heating and electricity bill?: I choose not to answer this question Do you have trouble taking care of your child, family member or friend?: I choose not to answer this question Do you have trouble with day-to-day activities such as bathing, preparing meals, shopping, managing finances, etc.?: I choose not to answer this question Are you currently unemployed and looking for a job?: I choose not to answer this question Are you interested in more education?: I choose not to answer this question Please select the resources that you would like help with: None Currently or been in a relationship where the following occur: I choose not to answer THRIVE Score: 0 AUDIT C Alcohol Use Questionnaire (AUDIT-C) 1. How often do you have a drink containing alcohol?: Never 2. How many drinks containing alcohol do you have on a typical day when you are drinking?: 1 or 2 3. How often do you have six or more drinks on one occasion?: Never Total Score: 0 Score Reviewed/Action Taken: Yes COLT-7 AMB Questionnaire COLT-7 Date COLT - 7 assessed: 09/02/24 Feeling nervous, anxious, or on edge: 3 = Nearly every day Not being able to stop or control worryin = Nearly every day Worrying too much about different things: 3 = Nearly every day Trouble relaxin = Nearly every day Being so restless that it is hard to sit still: 3 = Nearly every day Becoming easily annoyed or irritable: 3 = Nearly every day Feeling afraid as if something awful might happen: 3 = Nearly every day Total COLT-7 score (0-4 normal; 5-9 mild; 10-14 moderate; 15-21 severe): 21 Source: Developed by Drs. Yfn Hare, Alysha Quintanilla, Raghu Jalloh and colleagues, with an educational bart from [email or web address]. COLT-7 Assessment Billing COLT-7 Assessment Tool: COLT-7 Assessment 71116 Physical exam (Primary Care) Vital Signs: Last Vital Signs Temp 98.1 F 09/02/24 08:57 Pulse 65 09/02/24 08:57 Resp 20 09/02/24 08:57 BP 138/96 H 09/02/24 08:57 Pulse Ox 97 09/02/24 08:57 Oxygen Delivery Method Room Air 09/02/24 08:57 BMI result Body Mass Index 34.1 Tobacco/Smoking Status: Tobacco use Status Tobacco use date assessed 09/02/24 09/02/24 09:01 Patient Tobacco Use Status Never used Tobacco 09/02/24 09:01 e-Cigarette/Vaping Use Never Used 09/02/24 09:01 PHQ-9: PHQ-9 Score PHQ-9: Total score 0 09/02/24 09:01 Depression Screening Interpretation: Negative Thrive Assessment: Date of Thrive Assessment Date Thrive assessed 09/02/24 09/02/24 09:01 Currently or been in a relationship where the following occur: I choose not to answer Coding Level of Care Code Est Pt Level 4 (75056) Diagnoses Class 1 obesity due to excess calories without serious comorbidity with body mass index (BMI) of 33.0 to 33.9 in adult E66.09; Z68.33 Obesity classification: adult class 1 (BMI 30 - 34.9) Serious obesity comorbidity presence: without serious comorbidity Body mass index: BMI 33.0-33.9 Headache syndrome G44.89 Depression, major, single episode, mild F32.0 Anxiety, generalized F41.1 Stress F43.9 Additional Codes COLT-7 Assessment Billing - COLT-7 Assessment Tool: COLT-7 Assessment 09844 ([id number]) PHQ-9 - 02991 - PHQ-9 Billing: Yes ([id number]) Assessment & Plan Assessment & Plan (1) Obesity due to excess calories: Code(s): E66.09 - Other obesity due to excess calories Category: Medical Qualifiers: Obesity classification: adult class 1 (BMI 30 - 34.9) Serious obesity comorbidity presence: without serious comorbidity Body mass index: BMI 33.0- 33.9 Qualified Code(s): E66.09 - Other obesity due to excess calories; Z68.33 - Body mass index [BMI] 33.0-33.9, adult (2) Headache syndrome: Comment: migraines Code(s): G44.89 - Other headache syndrome Category: Medical (3) Depression, major, single episode, mild: Code(s): F32.0 - Major depressive disorder, single episode, mild Category: Medical (4) Anxiety, generalized: Code(s): F41.1 - Generalized anxiety disorder Category: Medical (5) Stress: Code(s): F43.9 - Reaction to severe stress, unspecified Category: Medical Plan History - The patient is a 33-year-old female presenting with concerns regarding weight management and migraine management. - The patient reports a BMI of 34.1 and weight fluctuation between 92 to 96 kg, with an increase from 188 lbs as of September last year. The persistent weight gain is causing emotional distress, anxiety, and exacerbation of depression. - The patient attempted a prescribed oral medication for weight management; however, it was not covered by insurance, Phentermine - Current symptoms include significant anxiety and depressive symptoms exacerbated by weight issues. - The patient also reports chronic migraines, with increased prevalence due to sunlight exposure during the summer. Amitriptyline 10 mg has been used previously, providing partial relief at night. - The patient experiences frequent migraines in bright, keri conditions owing to bedroom environmental factors. Medical History: - Anxiety - Depression - Migraine Social History: - Patient has knowledge of dietary needs related to kidney stones. - The patient has expressed distress related to current weight and its impact on mental health. Problem List - Obesity - Anxiety - Depression - Migraine Patient Instructions - Start the new prescribed medication for weight loss: combination of naltrexone and bupropion. Begin with one dose in the morning and increase to two doses a day after confirming tolerability. - Consider a dietary consultation; someone will call to set up this appointment. - Set up a patient portal account with email to facilitate communication about insurance coverage and medications. - Observe if amitriptyline at an increased dose (25 mg) helps with migraine and report any issues or side effects through the patient portal. - Check if sumatriptan is covered by insurance; use sumatriptan as soon as migraine symptoms present, along with naproxen. Medications: New sumatriptan succinate take at the onset of headache with one aleeve 50 mg PO .qd PRN 14 tabs 0RF migraine headache 30 days naltrexone-bupropion 8-90 mg (Contrave) 1 tab PO BID 60 tabs 0RF 30 days Changed From amitriptyline 10 mg PO BEDTIME 90 tabs 0RF To amitriptyline 25 mg PO BEDTIME 90 tabs 0RF 90 days
[2024-09-02 08:57] VITALS: BP 138/96; PULSE 65; RESP 20; TEMP 36.7; O2SAT 97; BMI 34.1
--- OUTSIDE RECORDS SUMMARY | 2024-09-02 09:25 | XMS_ITS | Clinical Summary ---
Author Organization [facility] Address [address] [place] [address] Care Team Providers Care Registered Medical Assistant Name Role Phone No, Pcp [facility] Primary Care Provider Unavailabl e Allergies No known active allergies Medications No known medications Social History Tobacco Use Types Packs/Day Years Used Date Smoking Tobacco: Never Smokeless Tobacco: Never Tobacco Cessation:Counseling Given: Not Answered Alcohol Use Standard Drinks/Week Comments Not Currently 0 (1 standard drink = 0.6 oz pur e alcohol) Comments No Sex and Gender Information Value Date Recorded Sex Assigned at Not on file Legal Sex Female 12:54 AM EST Gender Identity Not on file Sexual Orientation Not on file Last Filed Vital Signs Vital Sign Reading Time Taken Comments Blood Pressure - - Pulse 87 06/16/2022 9:31 AM EDT Temperature 36.6 ??C (97.8 ??F) 06/16/2022 9:31 AM ED T Respiratory Rate 16 06/16/2022 9:31 AM EDT Oxygen Saturation 98% 06/16/2022 9:31 AM EDT Inhaled Oxygen Concentration - - Weight 84.8 kg (187 lb) 01/23/2022 11:48 AM EDT Height 160 cm (5' 3 ) 01/23/2022 11:48 AM EDT Body Mass Index 33.13 01/23/2022 11:48 AM EDT Plan of Treatment Health Maintenance Due Date Last Done Comments Depression: Screening Annual ly using PHQ-2/9 in Adults 18 yrs or above (or HM Modifier)([facility]) 10/04/2009 Hepatitis C Virus Infection in Adolescents and Adults: Screening (or Modifier) ([facility]) 10/04/2009 SDOH Screening Reminder: Tressa castillo for all adults ([facility]) 10/04/2009 Tobacco Smoking Cessation: i n Adults excluding Women: Behavioral and Pharmacotherapy Interventions ([facility]) 10/04/2009 DTaP/Tdap/Td Vaccines ([facility]) (1 - Tdap) 10/04/2010 Cervical Cancer Screenin 1-65 yrs of age (or Modifier) 10/04/2012 Cervical Cancer Screening: P ap every 3 yrs pts age 21-65 10/04/2012 Cervical Cancer: Pap Screeni ng with Modifier timing ([facility] ) 10/04/2012 Cervical Cancer: hrHPV alone or with cotesting Pap for Pts 30-65yrs screening every 5yrs ([facility] ) 10/04/2012 COVID-19 Vaccine Screening: Initial Series and Booster Status ([facility]) (2023- season) 2023 Flu Vaccination: Yearly for ages 18mos through 64 years (or Modifier)([facility]) 10/24/2024 Zoster/Shingles Vaccine Seri es Screening: Adults aged 18+ yrs (or HM Modifiers)([facility]) (1 of 2) 10/04/2041 Pneumococcal Vaccination Scr eening: Pts 0-19 & 19-49 yrs of age ([facility]) Aged Out No longer eligible based on patient's age to complete this topic Medical Devices Not on file Care Teams Registered Medical Assistant Relationship Specialty Start Date End Date No, Pcp, [facility] N/A Do not use PCP - General Family Medicine 03/30/20
== END 2024-09-02 09:10 | disposition home or self-care (01) ==
LOC: HO.HMCC 08:55
PROVIDERS: PCP Internal Medicine; Visit Provider Internal Medicine
DX: E66.09 Other obesity due to excess calories (principal); Z68.33 Body mass index [BMI] 33.0-33.9, adult; G44.89 Other headache syndrome; F32.0 Major depressive disorder, single episode, mild; F41.1 Generalized anxiety disorder; F43.9 Reaction to severe stress, unspecified

== ENCOUNTER → 2024-09-02 08:54 | Outpatient (BNVA) | payer OTHER, SELFPAY | PROVIDERS: PCP Internal Medicine; Visit Provider Internal Medicine | DX: E66.09 Other obesity due to excess calories (principal); Z68.34 Body mass index [BMI] 34.0-34.9, adult; G44.89 Other headache syndrome; F32.0 Major depressive disorder, single episode, mild; F41.1 Generalized anxiety disorder; F43.9 Reaction to severe stress, unspecified; Z13.30 Encounter for screening examination for mental health and behavioral disorders, unspecified; Z13.31 Encounter for screening for depression | CPT/HCPCS: 96127; 99212 ==

== ENCOUNTER 2024-10-03 09:22 | Outpatient (AMB) | payer OTHER, SELFPAY ==
[2024-10-03 09:25] VITALS: BP 122/84; PULSE 60; O2SAT 98; BMI 33.5
--- NOTE | 2024-10-03 09:25 | A.OFFPC_ITS ---
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 Allergies control pill Adverse Reaction (Intermediate, Uncoded 10/03/24 09:34) Migraine Medication List - Last Reconciled 10/03/24 by Oriana Pepper MD amitriptyline 25 mg PO BEDTIME 90 days bupropion HCl SR 100 mg PO QAM cholecalciferol (vitamin D3) 25 mcg PO DAILY 90 days naltrexone 25 mg (1/2 x 50 mg) PO DAILY sumatriptan succinate 50 mg PO .qd PRN 30 days Tobacco use date assessed: 10/03/24 Dental Screening Dental Screen Date: 09/02/24 HPI 1 month f/up HPI Details History - The patient is a 33-year-old female pr esenting with the primary reason for visit: medication management and weight loss. - Reported feeling tired, which she attr ibutes to her current medication regimen; she takes her medication in the morning. - Noticed weight loss, currently weighin g 189 pounds, down from 192.8 pounds the previous month. - Engages in light physical activity, in cluding walking for approximately 30 minutes, typically with her dogs. - Discussed dietary habits, noting an av ersion to candy and soda, with a preference for lemonade and tea. Medical History: - Depression, managed with medication. Medications: - Prescribed 25 mg of unspecified medica tion, taken as a full tablet in the morning. - Bupropion 100 mg taken in the morning for depression. Social History: - Engages in light physical activity, wa lking about 30 minutes daily with her dogs. - Consumes 2400 calories per day and is advised to reduce to 2000 calories per day. - Prefers lemonade and tea over soda and avoids candy. Problem List - Depression - Overweight Patient Instructions - Consider taking medication at night in stead of in the morning to reduce tiredness. - Continue prescribed medications as dir ected. - Increase morning dose of bupropion to 200 mg as discussed. - Aim to reduce daily caloric intake to 1800 calories. - Monitor weight and maintain light phys ical activity. Review of Systems - General: No fever no chills - Neurological: No headaches no dizziness - Ear nose throat: No sore throat no hearing difficulty no ear pain - Cardiovascular: No syncope, no chest pain, no palpitations - Gastrointestinal: No nausea vomiting or diarrhea - Endocrine: No polyuria polydipsia no heat intolerance - Genitourinary: No dysuria , no blood in urine Physical Exam - General: No acute distress - HEENT: No acute findings - Neck: Supple - Respiratory system: Able to talk in f ull sentences, no audible wheeze - Cardiovascular: S1-S2 regular in rate and rhythm - Gastrointestinal: No pain - Extremities: No new findings - ADMINISTRATIVE OFFICER: Alert awake oriented x3 motor se nsory intact - Skin: Normal turgor PFSH Medical History COVID-19 vaccine series completed History of kidney stones Depression Headache syndrome Surgical History Hx of cystoscopy Hx of cholecystectomy History of lithotripsy Family History Father No problems noted. Mother Breast cancer Maternal Grandmother No problems noted. Maternal Grandfather No problems noted. Paternal Grandfather No problems noted. Paternal Grandmother No problems noted. Maternal Aunt No problems noted. Brother No problems noted. Brother No problems noted. Brother No problems noted. Sister No problems noted. Sister No problems noted. Son No problems noted. Daughter No problems noted. Social History Household Members: Family Housing: Apartment Are you a primary critical care nurse specialist to a significant other at home: No Do you presently have visiting nurse or other home services: No Alcohol intake: never Patient Tobacco Use Status: Never used Tobacco e-Cigarette/Vaping Use: Never Used service: No Current occupational status: employed Cognitive needs: No Hearing needs: No Vision needs: No Questionnaire PHQ-9 Over the last 2 weeks, how often have you been bothered by any of the following problems? 1. Little interest or pleasure in doing things: not at all 2. Feeling down, depressed, or hopeless: not at all 3. Trouble falling or staying asleep, or sleeping too much: not at all 4. Feeling tired or having little energy: not at all 5. Poor appetite or overeating: not at all 6. Feeling bad about yourself - or that you are a failure or have let yourself or your family down: not at all 7. Trouble concentrating on things, such as reading the newspaper or watching television: not at all 8. Moving or speaking so slowly that other people could have noticed. Or the opposite - being so fidgety or restless that you have been moving around a lot more than usual: not at all 9. Thoughts that you would be better off or of hurting yourself in some way: not at all Total score: 0 Depression Screening Interpretation: Negative Depression Screening Done: Yes 21821 - PHQ-9 Billing: Yes Source: Developed by Drs. Yfn Hare, Alysha Quintanilla, Raghu Jalloh and colleagues, with an educational bart from [employer] Thrive Questionnaire Date Thrive assessed: 10/03/24 I am a: Patient What is your living situation today?: I have a steady place to live Within the past 12 months, did the food you bought not last and you didn't have the money to get more?: I choose not to answer this question Within the past 12 months, did you worry whether your food would run out before you got money to buy more?: I choose not to answer this question Do you have trouble paying for medicines?: I choose not to answer this question Do you have trouble getting transportation to medical appointments?: I choose not to answer this question Do you have trouble paying your heating and electricity bill?: I choose not to answer this question Do you have trouble taking care of your child, family member or friend?: I choose not to answer this question Do you have trouble with day-to-day activities such as bathing, preparing meals, shopping, managing finances, etc.?: I choose not to answer this question Are you currently unemployed and looking for a job?: I choose not to answer this question Are you interested in more education?: I choose not to answer this question Please select the resources that you would like help with: None Currently or been in a relationship where the following occur: I choose not to answer THRIVE Score: 0 COLT-7 AMB Questionnaire COLT-7 Date COLT - 7 assessed: 10/03/24 Feeling nervous, anxious, or on edge: 0 = Not at all Not being able to stop or control worryin = Not at all Worrying too much about different things: 0 = Not at all Trouble relaxin = Not at all Being so restless that it is hard to sit still: 0 = Not at all Becoming easily annoyed or irritable: 0 = Not at all Feeling afraid as if something awful might happen: 0 = Not at all Total COLT-7 score (0-4 normal; 5-9 mild; 10-14 moderate; 15-21 severe): 0 Source: Developed by Drs. Yfn Hare, Alysha Quintanilla, Raghu Jalloh and colleagues, with an educational bart from [employer] COLT-7 Assessment Billing COLT-7 Assessment Tool: COLT-7 Assessment 43323 Physical exam (Primary Care) Vital Signs: Last Vital Signs Pulse 60 10/03/24 09:25 BP 122/84 10/03/24 09:25 Pulse Ox 98 10/03/24 09:25 Oxygen Delivery Method Room Air 10/03/24 09:25 BMI result Body Mass Index 33.5 Tobacco/Smoking Status: Tobacco use Status Tobacco use date assessed 10/03/24 10/03/24 09:32 Patient Tobacco Use Status Never used Tobacco 10/03/24 09:32 e-Cigarette/Vaping Use Never Used 10/03/24 09:32 PHQ-9: PHQ-9 Score PHQ-9: Total score 0 10/03/24 11:10 Depression Screening Interpretation: Negative Thrive Assessment: Date of Thrive Assessment Date Thrive assessed 10/03/24 10/03/24 09:32 Currently or been in a relationship where the following occur: I choose not to answer Coding Level of Care Code Est Pt Level 3 (33752) Diagnoses Class 1 obesity due to excess calories without serious comorbidity with body mass index (BMI) of 33.0 to 33.9 in adult E66.09; Z68.33 Obesity classification: adult class 1 (BMI 30 - 34.9) Serious obesity comorbidity presence: without serious comorbidity Body mass index: BMI 33.0-33.9 Depression, major, single episode, mild F32.0 Anxiety, generalized F41.1 Additional Codes COLT-7 Assessment Billing - COLT-7 Assessment Tool: COLT-7 Assessment 59359 ([id number]) PHQ-9 - 06247 - PHQ-9 Billing: Yes ([id number]) Assessment & Plan Assessment & Plan (1) Obesity due to excess calories: Code(s): E66.09 - Other obesity due to excess calories Category: Medical Qualifiers: Obesity classification: adult class 1 (BMI 30 - 34.9) Serious obesity comorbidity presence: without serious comorbidity Body mass index: BMI 33.0- 33.9 Qualified Code(s): E66.09 - Other obesity due to excess calories; Z68.33 - Body mass index [BMI] 33.0-33.9, adult (2) Depression, major, single episode, mild: Code(s): F32.0 - Major depressive disorder, single episode, mild Category: Medical (3) Anxiety, generalized: Code(s): F41.1 - Generalized anxiety disorder Category: Medical Plan History - The patient is a 33-year-old female presenting with the primary reason for visit: medication management and weight loss. - Reported feeling tired, which she attributes to her current medication regimen; she takes her medication in the morning. - Noticed weight loss, currently weighing 189 pounds, down from 192.8 pounds the previous month. - Engages in light physical activity, including walking for approximately 30 minutes, typically with her dogs. - Discussed dietary habits, noting an aversion to candy and soda, with a pre ference for lemonade and tea. Medical History: - Depression, managed with medication. Medications: - Prescribed 25 mg of unspecified medication, taken as a full tablet in the morning. - Bupropion 100 mg taken in the morning for depression. Social History: - Engages in light physical activity, walking about 30 minutes daily with her dogs. - Consumes 2400 calories per day and is advised to reduce to 2000 calories per day. - Prefers lemonade and tea over soda and avoids candy. Problem List - Depression - Overweight Patient Instructions - Consider taking medication at night instead of in the morning to reduce tiredness. - Continue prescribed medications as directed. - Increase morning dose of bupropion to 200 mg as discussed. - Aim to reduce daily caloric intake to 1800 calories. - Monitor weight and maintain light physical activity. Medications: Changed From bupropion HCl SR 100 mg PO QAM 30 tabs 0RF To bupropion HCl SR 200 mg PO QAM 90 tabs 0RF
--- OUTSIDE RECORDS SUMMARY | 2024-10-03 09:38 | XMS_ITS | Clinical Summary ---
Author Organization [facility] Address [address] [place] [address] Care Team Providers Care Foil Operator Name Role Phone No, Pcp HEAT TREATER HEAD Primary Care Provider Unavailabl e Allergies No [...] 87 06/16/2022 9:31 AM EDT Temperature 36.6 C (97.8 F) 06/16/2022 9:31 AM EDT Respiratory Rate 16 06/16/2022 9:31 AM EDT [...] Adults 18 yrs or above (or HM Modifier)([facility]) 10/04/2009 Hepatitis C Virus Infection in Adolescents and Adults: Screening (or Modifier) ([facility]) 10/04/2009 SDOH Screening Reminder: Tressa jonathan for all adults ([facility]) 10/04/2009 Tobacco Smoking Cessation: i n Adults excluding Women: Behavioral and Pharmacotherapy Interventions ([facility]) 10/04/2009 DTaP/Tdap/Td Vaccines ([facility]) (1 - Tdap) 10/04/2010 Cervical Cancer Screenin 1-65 yrs of age (or Modifier) 10/04/2012 Cervical Cancer Screening: P ap every 3 yrs pts age 21-65 10/04/2012 Cervical Cancer: Pap Screeni ng with Modifier timing ([facility] ) 10/04/2012 Cervical Cancer: hrHPV alone or with cotesting Pap for Pts 30-65yrs screening every 5yrs ([facility]) 10/04/2012 COVID-19 Vaccine Screening: Initial Series and Booster Status ([facility]) (2023- season) 2023 Flu Vaccination: Yearly for ages 18mos through 64 years (or Modifier)([facility]) 10/24/2024 Zoster/Shingles Vaccine Seri es Screening: Adults aged 18+ yrs (or HM Modifiers)([facility]) (1 of 2) 10/04/2041 Pneumococcal Vaccination Scr eening: Pts 0-19 & 19-49 yrs of age ([facility]) Aged Out No longer eligible based on patient's age to complete this topic Medical Devices Not on file Care Teams Foil Operator Relationship Specialty Start Date End Date No, Pcp, HEAT TREATER HEAD N/A Do not use PCP - General Family Medicine 03/30/20
== END 2024-10-03 10:06 | disposition home or self-care (01) ==
LOC: HO.HMCC 09:23
PROVIDERS: PCP Internal Medicine; Visit Provider Internal Medicine
DX: E66.09 Other obesity due to excess calories (principal); Z68.33 Body mass index [BMI] 33.0-33.9, adult; F32.0 Major depressive disorder, single episode, mild; F41.1 Generalized anxiety disorder

== ENCOUNTER → 2024-10-03 09:22 | Outpatient (BNVA) | payer OTHER, SELFPAY | PROVIDERS: PCP Internal Medicine; Visit Provider Internal Medicine | DX: F32.0 Major depressive disorder, single episode, mild (principal); F41.1 Generalized anxiety disorder; E66.09 Other obesity due to excess calories; Z68.33 Body mass index [BMI] 33.0-33.9, adult | CPT/HCPCS: 96127; 99212 ==

== ENCOUNTER 2025-03-23 09:18 | Outpatient (AMB) | payer OTHER, SELFPAY ==
--- NOTE | 2025-03-23 12:55 | MHC.OFFVISWM ---
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 BMI 33.5 Allergies control pill Adverse Reaction (Intermediate, Uncoded 03/23/25 12:55) Migraine Medication List - Last Reconciled 03/23/25 by Rodrigo Campos MD amitriptyline 25 mg PO BEDTIME 90 days bupropion HCl SR 200 mg PO QAM cholecalciferol (vitamin D3) 25 mcg PO DAILY 90 days HPI HPI TV [employer] LEAK TESTER MWL BMI 33.5: Details: Start time: 12.40pm, End time: 1.20pm ?I spent 35 minutes speaking with the patient on the phone plus an additional 5 minutes reviewing and updating records for a total of 40 minutes HPI Comments Details: Previous weight loss efforts: Phentermine 37.5mg for 6mths supervised by PCP with no weight loss within 2024 until September 2024 Wakes up: 5.45am, Sleeps: 10pm Breakfast: 6.15am (Bagel or granola bar) Lunch: 11.45am (sandwich) Dinner: 6pm (chicken, steak, salad, rice) Snacks: 10am (crackers, eggs) Exercise: none Beverages: Coffee (1 cup/d black), Tea: none, Soda: none, Juice: 3/wk (Lemonade), ETOH: none PFSH Medical History (Updated 03/23/25 @ 13:06 by Rodrigo Campos MD) BMI 33.0-33.9,adult Obesity COVID-19 vaccine series completed History of kidney stones Depression Headache syndrome Surgical History Hx of cystoscopy Hx of cholecystectomy History of lithotripsy Family History Father No problems noted. Mother Breast cancer Maternal Grandmother No problems noted. Maternal Grandfather No problems noted. Paternal Grandfather No problems noted. Paternal Grandmother No problems noted. Maternal Aunt No problems noted. Brother No problems noted. Brother No problems noted. Brother No problems noted. Sister No problems noted. Sister No problems noted. Son No problems noted. Daughter No problems noted. Social History Household Members: Family Housing: Apartment Are you a primary urgent care physician to a significant other at home: No Do you presently have visiting nurse or other home services: No Alcohol intake: never Patient Tobacco Use Status: Never used Tobacco e-Cigarette/Vaping Use: Never Used service: No Current occupational status: employed Cognitive needs: No Hearing needs: No Vision needs: No Telehealth Telehealth Telehealth Platform: Telephone Location of provider rendering services: practice address Location of patient: address on file Patient Identification confirmed using: Name, : Yes Telehealth method: voice only Patient verbally consented to treatment: Yes Patient verbally consented to billing insurance company: Yes Patient informed of any privacy concerns related to visit: Yes Minutes spent on Phone/Video with Pt.: 40 Assessment & Plan Assessment & Plan (1) Obesity: Code(s): E66.9 - Obesity, unspecified Category: Medical Qualifiers: Obesity type: due to excess calories Obesity classification: adult class 1 (BMI 30 - 34.9) Serious obesity comorbidity presence: without serious comorbidity Body mass index: BMI 33.0-33.9 Qualified Code(s): E66.811 - Obesity, class 1; E66.09 - Other obesity due to excess calories; Z68.33 - Body mass index [BMI] 33.0-33.9, adult Plan: 1. Nutritional counseling. Start with one premade PREMIER protein (buy at [employer] or [employer]) shake (mix 4oz of Premier mixed with 4oz low fat unsweetened almond milk each) at 7am-9am, one protein bar (Fit Crunch protein bar, buy at [employer], or [employer]) at 10am-12pm, another premade PREMIER protein shake (mix 4oz of Premier mixed with 4oz low fat unsweetened almond milk each) at 1pm-3pm, another [employer] Crunch protein bar at 5pm-6pm,? dinner at 7pm (8 forks of protein and 8 forks of salad/vegetables) AND another HALF [employer]unch protein bar at 9pm-10pm. So you do 2 protein shakes, 2.5 protein bars and one meal per day. Meal to include lean meat (beef, fish, pork, turkey, chicken), or uruguayan yogurt, or egg whites, or beans with a salad with olive oil and fruits (berries, pears, apples, kiwi). Avoid salt, breads, potatoes, rice, pasta, desserts. 2. I ordered a medication to help you with the weight loss which is called Zepbound. My office will try to authorize it. Common side effects include nausea, vomiting, constipation, diarrhea, abdominal pain. Please let me know if you develop any of these symptoms. 3. Each shake would be drunk slowly, like coffee in a period of 2 hours. 4. Cut each bar in 4 pieces and eat each piece in 30min ?to make each bar last 2 hours. 5. I emphasized the importance of measuring accurately the food portion and measure it when serving the food in plate 6. The meal portions include 8 full-size forks of meat and 8 full-size forks of salad. You always eat the meat portion but you can replace up to 4 forks for salad/vegetables with rice, potatoes or pasta, or a fruit ?if you like. The less you do it the better weight loss will be. 7. One full-size fork is what it can be scooped on the fork without falling aside and not what can be bit with the fork. Use regular forks like those you find in a typical restaurant. 8.? Please buy the body composition scale we discussed and send me weight measurements as soon as possible and then once a week. Always include your diet and exercise plan. 9. The best choice would be to purchase a stationary bike at home that can track calories. If you get one, please start stationary bike at a resistance level of 4.0 Increase level by 1.0 every 3 min to a max level of 10.0. Stay at this level for 3 min and then return to level 4.0 and repeat same steps until 300 calories are burned. Goal is to burn 2000 calories per week on exercise 10.?It is important of avoiding and for as long as you are on the medication 11. Goal is to lose at least 1.5-2lbs per week 12. Goal to lose at least 10% of your weight, which is about 19lbs. Minimum weight goal: 170lbs 13. Please follow the diet plan exactly without any change. If you don't like something about the plan or you feel hungry you need to communicate with me so I can help you revise the plan. You should not change the plan yourself Medications: New tirzepatide (weight loss) (Zepbound) for 4 weeks 2.5 mg (0.5 mL) subcut QWEEK 2 mL 0RF E66.09 - Other obesity due to excess calories, E66.811 - Obesity, class 1, Z68.33 - Body mass index [BMI] 33.0-33.9, adult
[2025-03-23 13:00] VITALS: BMI 33.5
== END 2025-03-23 13:21 | disposition home or self-care (01) ==
LOC: HO.HBS 09:18
PROVIDERS: PCP Internal Medicine; Visit Provider Surgery
DX: E66.811 Obesity, class 1 (principal); E66.09 Other obesity due to excess calories; Z68.33 Body mass index [BMI] 33.0-33.9, adult
CPT/HCPCS: 99203